=== PATIENT | male | born 1955 | race Caucasian/White ===

== ENCOUNTER 2024-02-02 06:27 | Outpatient (RCR) | payer OTHER, SELFPAY | END 2024-02-02 23:59 | disposition home or self-care (01) | LOC: RPT 06:27 | PROVIDERS: ATTENDING PHYSICIAN Physical Medicine & Rehabilitation; FAMILY PHYSICIAN Family Medicine | DX: M54.50 Low back pain, unspecified (principal); Z73.6 Limitation of activities due to disability; M62.81 Muscle weakness (generalized); M62.830 Muscle spasm of back | CPT/HCPCS: 97162; 97530 ==

== ENCOUNTER → 2024-02-08 14:11 | Outpatient (REF) | payer OTHER, SELFPAY | LOC: RAD 14:11 | PROVIDERS: ATTENDING PHYSICIAN Student in an Organized Health Care Education/Training Program; FAMILY PHYSICIAN Family Medicine | DX: L81.9 Disorder of pigmentation, unspecified (principal) | CPT/HCPCS: 73620; 93925 ==

== ENCOUNTER 2024-02-14 09:08 | Outpatient (RCR) | payer OTHER, SELFPAY | END 2024-02-14 23:59 | disposition home or self-care (01) | LOC: RPT 09:08 | PROVIDERS: ATTENDING PHYSICIAN Physical Medicine & Rehabilitation; FAMILY PHYSICIAN Family Medicine | DX: M54.50 Low back pain, unspecified (principal); Z73.6 Limitation of activities due to disability | CPT/HCPCS: 97110; 97530 ==

== ENCOUNTER → 2025-02-15 08:18 | Outpatient (REF) | payer OTHER, SELFPAY | LOC: RAD 08:18 | PROVIDERS: ATTENDING PHYSICIAN Family Medicine | DX: I70.208 Unspecified atherosclerosis of native arteries of extremities, other extremity (principal) | CPT/HCPCS: 93922; 93925 ==

== ENCOUNTER → 2025-03-19 11:06 | Outpatient (REF) | payer OTHER, SELFPAY | LOC: HWRAD 11:06 | PROVIDERS: ATTENDING PHYSICIAN Student in an Organized Health Care Education/Training Program | DX: M79.671 Pain in right foot (principal) | CPT/HCPCS: 73630 ==

== ENCOUNTER 2025-10-28 19:25 | Inpatient (IN) | payer OTHER, SELFPAY ==
[2025-10-28] VITALS (50 sets, daily range): BP systolic 71–152; BP diastolic 36–106; PULSE 71; BMI 35.7; BMI 35.3
[2025-10-28 15:30] LABS: Glucose - Point of Care 184 mg/dl (70-99)
[2025-10-28] MEDS: LEVOPHED 250 IV ×2 (15:35→19:50)
[2025-10-28] MEDS: SUBLIMAZE 50 MCG IV ×3 (15:40→19:25)
[2025-10-28] MEDS: SUBLIMAZE 100 IV (15:41)
[2025-10-28 15:42] LABS: Hematocrit 45.3 % (39.0-52.0); Hemoglobin 14.4 g/dL (13.0-18.0); Mean Corp Hgb Conc. 31.8 g/dL (33.0-37.0); Mean Corpuscular Volume 91.7 fL (80.0-94.0); Nucleated Red Blood Cells % 0 % (-); Platelet Count 225 10^3/uL (130-400); Red Cell Dist. Width 14.1 % (11.5-14.5)
[2025-10-28 15:59] LABS: APTT 23.9 Sec (23.4-35.0)
[2025-10-28 16:08] LABS: ALT (SGPT) 164 U/L (0-50); AST (SGOT) 183 U/L (17-59); Albumin 3.5 g/dl (3.5-5.0); Alkaline Phosphatase 74 U/L (38-126); Blood Urea Nitrogen 19 mg/dl (9-20); Calcium 8.2 mg/dl (8.4-10.2); Carbon Dioxide 15 mmol/L (22-30); Chloride 110 mmol/L (98-107); Estimated Creatinine Clearance 81 ml/min; Glucose 207 mg/dl (70-99); Potassium 4.0 mmol/L (3.5-5.1); Sodium 138 mmol/L (135-145); Total Protein 6.2 g/dl (6.3-8.2); eGFR > 60.00
[2025-10-28 16:23] LABS: Troponin I 0.045 ng/ml
[2025-10-28] MEDS: DIPRIVAN 100 IV ×3 (16:50→23:00)
--- NOTE | 2025-10-28 17:18 | ED.GENMED ---
History of Present Illness
General
Chief Complaint: CODE
Time Seen by Provider: 10/28/25 16:00
History of Present Illness
History of Present Illness:
70-year-old male with history of CHF presenting to the emergency department with cardiac arrest. Per son, patient was sitting in the car at their house, and suddenly reported shortness of breath and moaned. Son notes that he became blue and
unresponsive so he immediately started chest compressions. Medics were called to the house and noted they were there shortly after arrest. Patient was immediately shocked for V-fib. Medics note multiple shocks for V-fib and V. tach with
subsequent ROSC. Also received 4-5 rounds of epinephrine. Patient arrives intubated medics note some pink frothy contents to the tube. Per family, no recent infection. Patient does have sleep apnea noted chronic cough, however denies any
increase to the cough. Medics note that when they were intubating him, seemed to not be moving his left side as much of his right side. Patient was agitated, received fentanyl and ketamine. No additional history obtained at this time
Past History
Past History
ED Past Medical History: Arrthythmia, Cancer (Prostate) and Other (BPH)
ED Past Surgical History: Cardiac and Orthopedic
Social History
Tobacco: Non-smoker
Phy Exam
Physical Exam
Physical Exam:
General: Well-appearing, no clinical signs of dehydration, nontoxic and in no acute distress
HEENT: protecting airway, intubated with some pink sputum in the ET tube
Neck: appears supple
CV: Normal heart rate, regular rhythm
Resp: No accessory muscle use, no increased work of breathing, crackles or rhonchi bilaterally
Abd: No distention
Extremities: No deformities, no swelling
Neuro: alert, no focal neurologic deficit
: deferred
Rectal: deferred
Psych: Normal affect
Skin: Intact
Course
Orders/Labs/Results
Orders:
Orders
10/28/25 15:29
Propofol 1,000,000 Mcg/100 ml [Diprivan] 1,000,000 mcg in 100 ml .ROUTE .STK-MED
10/28/25 15:31
CR Chest Portable - 1 View Urgent
Comment:
Reason For Exam: post intubation
Reason Study Needs to be Portable: Patient Unstable
10/28/25 15:32
FentaNYL 1,000 MCG/100 ML [Sublimaze] 1,000 mcg in 100 ml .ROUTE .STK-MED
Fentanyl Citrate/Pf [Sublimaze] 100 mcg .ROUTE .STK-MED ONE
Fentanyl Citrate/Pf [Sublimaze] 50 mcg IV NOW STA
Fentanyl Citrate/Pf [Sublimaze] 50 mcg IV [id number] PRN
10/28/25 15:33
Ct Chest/Abd/Pel Angio W/Wo Iv Urgent
Reason For Exam: vfib arrest
Complete Blood Count/With Diff Urgent
Comprehensive Metabolic Panel Urgent
NT-proBNP Urgent
PTT Urgent
Troponin I Urgent
10/28/25 15:34
CT Head W/o Iv Contrast Urgent
Comment:
Reason For Exam: post arrest
10/28/25 15:45
FentaNYL 1,000 MCG/100 ML [Sublimaze] 1,000 mcg in 100 ml IV PER PROTOCOL
Indication:: Light Sedation
Begin Infusion:: Now
Goal:: pain score </= 1, CPOT 0-2, RASS 0 to -2
Maximum dose in mcg/hr:: 300
Continue currently infusing dose and titrate:: Yes
Titration Instructions:: Titrate every 30 minutes if patient exhibits signs of pain or discomfort
Titration Instructions:: (pain score >/= 2, CPOT>/= 3).
Titration Instructions:: Administer bolus dose and increase infusion by 25 mcg/hr.
Taper Instructions:: If pain score at goal for 4 consecutive hours (pain score </= 1, CPOT 0-2)
Taper Instructions:: decrease infusion by 50 mcg/hr every 2 hours.
Taper Instructions:: When dose </= 50 mcg/hr may turn infusion off and consider PRN
Taper Instructions:: intermittent bolus doses only.
Over-sedation Instructions:: If CPOT 0-2 (goal) and RASS -3 to -5 (below goal) decrease sedative by 50%
Over-sedation Instructions:: first. If pain score remains at goal and RASS remains below goal in 1 hour,
Over-sedation Instructions:: decrease opioid infusion by 50%.
Notify provider:: immediately if pt exhibits: chest wall rigidity, hemodynamic instability,
Notify provider:: agitation/pain despite maximum dosing, pain when RASS -3 to -5 (below goal)
Additional Instructions:: Patient MUST be mechanically ventilated.
10/28/25 16:00
NORepinephrine 4 MG/250 ML [Levophed] 4 mg in 250 ml IV PER PROTOCOL
Initial dose in mcg/min, then titrate:: 10
Titrate to keep:: MAP > 65 mmHg
Titrate by mcg/min:: 1-2 mcg/min
Frequency of titrations (minutes):: 5
Maximum dose in ICU in mcg/min:: 30
Maximum dose in IMU in mcg/min:: 8
Maximum dose in IVU in mcg/min:: 4
Begin to taper infusion when:: Remained at goal for 4hrs
Taper by mcg/min:: 1-2 mcg/min
Frequency of taper (minutes) if patient maintains goal:: 30
Taper to off?: Yes
If infusion off & no longer maintaining goal:: Contact Provider
10/28/25 16:30
Propofol 1,000,000 Mcg/100 ml [Diprivan] 1,000,000 mcg in 100 ml IV PER PROTOCOL
Indication:: Light Sedation
Begin Infusion:: Now
Goal:: RASS 0 to -2
Maximum dose in mcg/kg/min:: 50
Continue currently infusion dose and titrate:: Yes
Titration Instructions:: Titrate by 5-10 mcg/kg/min every 5 minutes until RASS 0 to -2 achieved.
Taper Instructions:: If RASS is at or below goal for 4 consecutive hours decrease infusion by
Taper Instructions:: 5-10 mcg/kg/min every 2 hours.
Over-sedation Instructions:: If CPOT 0-2 (at goal) AND RASS -3 to -5 (below goal) decrease sedative by
Over-sedation Instructions:: 50% first. If pain score remains at goal and RASS remains below goal in
Over-sedation Instructions:: 1 hour, decrease opioid infusion by 50%.
Notify provider:: immediately if patient exhibits signs/symptoms of propofol-related
Notify provider:: infusion syndrome.
Additional Instructions:: Patient MUST be mechanically ventilated and MUST receive analgesia
10/28/25 17:08
ASA Classification Routine
COVID-19 Antigen Urgent
Source: Nasal Swab
Troponin I Urgent
Blood Culture Q30M
GAUDENCIO Source: Blood/Venous
Specimen Description:
Influenza A+B Rapid Molecular Urgent
GAUDENCIO Source: Nasal Swab
Specimen Description:
Propofol [Diprivan] 20 mg IV NOW STA
10/28/25 17:10
Triglycerides Routine
Comment: baseline levels with propofol infusion
Blood Culture Q30M
GAUDENCIO Source: Blood/Venous
Specimen Description:
10/28/25 17:16
Piperacillin/Tazo 4.5 Gram [Zosyn] 4.5 gram in 100 ml IV NOW
10/28/25 17:28
Consult Physician [PHYSICIAN CONSULT] Routine
Consulting Provider: Patricio Ward
Was physician already notified: Yes
10/28/25 19:05
Admit/Transfer Patient As Directed
Co-Sign Provider:
Level of Care: Inpatient admission
Assign to:: ICU
Physician / Group: Leticia Alexander
Diagnosis: cardiac arrest, pneumonia
Reason for Hospitalization: cardiac arrest, pneumonia
Expected length of stay greater than two midnights?: Yes
ELOS- Estimated Length of Stay in days: 3
I certify the patient meets the requirements for IP care: Yes
PRN Pain Medication Management As Directed
May give lesser potent ordered pain med per pt: Yes
preference::
Protocol:: Medication orders for pain may be administered in a
manner that supports deferring to patient preference
when the pt is:
- Requesting an ordered lesser potent pain medication.
Least to most potent pain medications are defined
as: acetaminophen < NSAID < tramadol < opioids
(morphine, oxycodone, hydromorphone).
- Requesting a lesser dose of the same medication IF
ORDERED.
- Requesting a less intrusive route of administration
if both routes are prescribed by the provider (PO <
IV).
10/28/25 19:09
Code Status As Directed
Resuscitation Status: Full Code
10/28/25 19:12
Vancomycin [Vancocin] 2,000 mg 0.9% Sodium Chloride 500 ml [Nss] 500 ml IV NOW
10/28/25 19:13
CR Chest Portable - 1 View Stat
Comment:
Reason For Exam: post cardiac arrest
Reason Study Needs to be Portable: Unable to Transport
10/28/25 20:51
VANCOMYCIN Pharmacy to Dose [VANCOCIN Pharmacy to Dose] 1 each Pharmacy To Prepare [Call Pharmacy To Prepare] 0 ml IV PER PROTOCOL
10/28/25 20:51
Electrocardiogram (*1) Urgent
Reason for Study: Other
Other Reason for Exam: baseline ICU
Comment: upon arrival to ICU (if not done in ED or in last 24 hours)
CARDIOLOGY CONSULT Routine
Consulting Provider: Patricio Ward
Was physician already notified: Yes
Field Training Manager Consult Urgent
Consulting Provider: Ashlie Montenegro
Was physician already notified: Yes
Respiratory Culture/Gram Stain Urgent
GAUDENCIO Source: Sputum
Specimen Description:
Date Specimen was Collected: 10/29/25
Time Specimen was Collected: 08:20
Activity As Directed
Activity Level: As Tolerated
Bedside Glucose Monitoring-ONCE As Directed
Comment: upon arrival to ICU
Intake/ Output As Directed
Frequency: Per unit guidelines
Notify MD As Directed
Notify physician if: While in ICU level of care:
glucose greater than or equal to 180 mg/dL once, contact provider to initiate Critical
Care Glycemic Protocol Target Range 140-180 mg/dL.
Vital Signs As Directed
Frequency: Per unit guidelines
Weight As Directed
Frequency: Daily
Comment: height and weight upon arrival to ICU.
DX Deep Vein Thrombosis Video Routine
10/28/25 22:05
Complete Blood Count/With Diff Urgent
Comment: upon arrival to ICU (if not done in ED or in last 24 hours)
Comprehensive Metabolic Panel Urgent
Comment: upon arrival to ICU (if not done in ED or in last 24 hours)
Magnesium Urgent
Comment: upon arrival to ICU (if not done in ED or in last 24 hours)
Phosphorus Urgent
Comment: upon arrival to ICU (if not done in ED or in last 24 hours)
Protime/PTT Urgent
Comment: upon arrival to ICU (if not done in ED or in last 24 hours)
10/28/25 22:07
Legionella Urinary Antigen Routine
GAUDENCIO Source: Urine
Specimen Description:
Strep pneumoniae Antigen Routine
GAUDENCIO Source: Urine
Specimen Description:
10/29/25 00:00
Heparin 5,000 units SC Q8
Piperacillin/Tazo 4.5 Gram [Zosyn] 4.5 gram in 100 ml IV Q6H
10/29/25 04:07
Cardiovascular Evaluation IN AM
Complete Blood Count/No Diff IN AM
Comprehensive Metabolic Panel IN AM
10/29/25 Breakfast
NPO
Allow oral meds: No
Allow clear liquids: No
10/29/25 08:00
Polyethylene Glycol Powder [Miralax] 17 grams TUBE DAILY
10/31/25 06:00
Triglycerides Q3D
Comment: every 72 hours while patient is on propofol
11/03/25 06:00
Triglycerides Q3D
Comment: every 72 hours while patient is on propofol
11/06/25 06:00
Triglycerides Q3D
Comment: every 72 hours while patient is on propofol
Abnormal Lab Results
10/28/25 10/28/25 10/28/25
15:29 15:33 17:08
WBC 13.0 H 10^3/uL
(4.8-10.8)
MCHC 31.8 L g/dL
(33.0-37.0)
Abs Immat Gran (auto) 0.7 H 10^3/uL
(0-0.05)
Absolute Neuts (auto) 8.8 H 10^3/uL
(1.4-6.5)
Absolute Monos (auto) 0.7 H 10^3/uL
(0.1-0.6)
Immature Gran % 5.0 H %
(0-0.5)
Chloride 110 H mmol/L
(98-107)
Carbon Dioxide 15 L mmol/L
(22-30)
Glucose 207 H mg/dl
(70-99)
Calcium 8.2 L mg/dl
(8.4-10.2)
AST 183 H U/L
(17-59)
ALT 164 H U/L
(0-50)
Troponin I 0.045 H* ng/ml 0.256 H* D ng/ml
Total Protein 6.2 L g/dl
(6.3-8.2)
Triglycerides
POC Glucose 184 H mg/dl
(70-99)
10/28/25
17:10
WBC
MCHC
Abs Immat Gran (auto)
Absolute Neuts (auto)
Absolute Monos (auto)
Immature Gran %
Chloride
Carbon Dioxide
Glucose
Calcium
AST
ALT
Troponin I
Total Protein
Triglycerides 167 H mg/dl
(10-149)
POC Glucose
10/28/25 15:33
10/28/25 15:33
Vital Signs
Initial and Last Documented VS:
Initial Vital Signs
Pulse Resp Pulse Ox
77 24 86
10/28/25 15:27 10/28/25 15:27 10/28/25 15:27
Last Documented Vital Signs
Temp Pulse Resp BP Pulse Ox
100.0 F 81 15 99/66 94
10/30/25 12:16 10/30/25 08:20 10/30/25 08:20 10/30/25 06:00 10/30/25 08:24
MDM/Problems Addressed
MDM/Problems Addressed:
70-year-old male with history of CHF and sleep apnea presenting to the emergency department after cardiac arrest. Vital signs on arrival significant for hypotension
On arrival, medics had noted the patient received multiple shocks with concern for V-fib and V. tach. Patient also received epinephrine. Current ROSC. Patient already intubated with appropriate lung sounds bilaterally. Given labile blood
pressure, started on Levophed. For sedation, started on fentanyl drip. EKG obtained on arrival, nonischemic. At this time lower suspicion for cardiac arrest from obstructive coronary disease. Will discuss with cardiology given V-fib arrest.
Known history of CHF, with chest x-ray obtained on arrival, showing pulmonary edema. Possible component of flash pulmonary edema vs pneumonia. Given undifferentiated, plan for CT chest/abdomen/pelvis. Medics have reported the patient was not
moving his left side as well as his right when he became agitated. Stroke is a consideration, however seems less likely in the setting of patient complaining of shortness of breath and becoming cyanotic. Suspect more cardiopulmonary cause. Will
obtain CT brain imaging. Family updated on patient's status shortly after arrival.
17:30 - In discussion with cardiology, agree that EKG is not showing anything acute as far as ischemia. Recommend continued supportive care. CT of the brain without acute intracranial abnormality. CT of the chest abdomen pelvis shows pneumonia
versus aspiration. Patient does have a mild leukocytosis, so infection is a consideration. Will start broad-spectrum antibiotics. BNP is normal and troponin is minimally elevated. Otherwise no significant lab abnormalities. Patient not
appropriately state-mandated on fentanyl, so propofol added with adjustment of Levophed. Plan for admission for continued respiratory support, antibiotics, blood cultures, cardiac and ICU consultation
*Pulse Oximetry
SaO2: 97
Oxygen Mode of Delivery: Ventilator
Patient hypoxic: no
*EKG
Interpreted by ED Provider?: Yes
EKG Intrepretation Date: 10/28/25
EKG Intrepretation Time: 17:18
Interpretation: normal
Heart Rate: 77
Rate: normal
Rhythm: sinus
Leonore: normal axis
Interval: normal interval
QRS Pattern: normal QRS
Ischemia: no ischemia
*Critical Care Note
Total Time (30-74mins, 75-104mins- exclusive of procedures): 65
comment:
The high probability of a clinically significant, sudden or life threatening deterioration of the cardiopulmonary system(s), cardiac arrest, required my full and direct attention, intervention and personal management. The aggregate critical care
time was 65 minutes. This time is in addition to time spent performing reported procedures but includes the following:
[x] Data Review and interpretation
[x] Patient assessment and monitoring of vital signs
[x] Documentation
[x] Medication orders and management
ED Attending Note
-
Portions of this chart may have been created with voice recognition software.� Occasional wrong word or��sound alike� substitutions may have occurred due to the inherent limitations of voice recognition software.
Discharge Plan
Departure
Patient Disposition: Admit
Date of Disposition: 10/28/25
Time of Disposition: 17:10
Presentation/result/management discussed w/ accepting MD/DO: Hospitalist
Patient with high blood pressure during this ER visit?: No
Condition: Critical
Discharge Problem:
Cardiac arrest, Pneumonia
Interventions
Interventions:
*Neglect/Abuse Screening Last Done: 10/28/25 15:45
*ED COVID-19 Vaccine History Last Done: 10/28/25 15:45
*ED Influenza Vaccine History Last Done: 10/28/25 15:45
[facility] Risk Assessment Tool Last Done: 10/28/25 16:30
*Risk Screen - Suicide (C-SSRS) Last Done: 10/28/25 15:45
*Nursing Disposition Last Done: 10/28/25 21:10
ED- Cardiac Assessment Last Done: 10/28/25 16:26
ED- Pulmonary Assessment Last Done: 10/28/25 20:00
Discharge Date and Time
Discharge Date/Time: 10/28/25 21:11
--- NOTE | 2025-10-28 17:31 | HPS.HSE ---
Addendum entered and electronically signed by Leticia Alexander DO 10/28/25 19:43:
I have seen and examined the patient. I have discussed the patient at length with AMY Roberts, and agree with her history and physical, assessment and plan of care as per below.
The patient's son was able to initiate immediate CPR with chest compressions until EMS arrived. The pt woke up during this H & P, became agitated on vent, but was able to look around to room with intention, recognize his family, squeeze both hands
with intention, and wiggle both legs, prior to getting agitated by intubation, and sedation was increased for patient safety.
The patient is intubated and sedated currently, on Levo gtt, Fentanyl gtt, Propofol gtt, Fentanyl gtt.
ED provider spoke to [employer], and I discussed with Cardiology, no evidence for acute myocardial ischemia causing cardiac arrest, no evidence for acute heart failure at this time. He has evidence for b/l consolidation and possible aspiration
pneumonia on CT of the chest.
#Cardiac arrest status post multiple shocks, V-fib or V-tach arrest in the field, shocked multiple times by EMS, s/p multiple doses of epi, with ROSC, possibly due to hypoxic respiratory failure with VT arrest, due to bacterial pneumonia vs
aspiration pna,
-Admit to ICU
-Life Insurance Agent/Cardiology consultation appreciated
-Gentle IVF while NPO
-IV Vanco, IV Zosyn for suspected bacterial PNA
-cultures, blood, urine, sputum, S/IGGY pending
-echocardiogram pending
-cont levo for now w weaning protocol
-cont fentanyl/propofol w weaning protocol
-ventilatory supportive care while ETT
#Transaminitis, likely passive congestion s/p cardiac arrest vs end-organ damage 2/2 acute bacterial pneumonia w sepsis
-gentle IVF due to heart failure history, close monitoring of I/O, daily weights
-repeat CMP in am
-tbili WNL, not likely biliary obstruction process, noted to have gallstones on CT with normal bile ducts.
#pt w history of laryngeal spasms, concern for possible aspiration pna
-speech eval when appropriate
-IV Zosyn
#Incidental nodule in the right lobe of the thyroid gland - to address by primary team pending clinical course, for OP
Agree with additional assessment and plan of care as per below
Original Note:
Family Physician
-
Family Physician: Akash Robledo
Chief Complaint
-
prehospital code
History of Present Illness
Patient is a 70-year-old male with past medical history significant for paroxysmal atrial fibrillation, HFrEF, gout, obstructive sleep apnea, nonischemic cardiomyopathy and acquired thrombophilia who presented to [facility] ED for evaluation of
prehospital code. Patient family at bedside who assisted with HPI and chart review. Son reports patient was outside today and when he was leaving he started calling his name, he did not appear well and was unable to state what was wrong. Son stated
that patient stated he 'did not know,' when questioned what was wrong. He notes patient opened car door to find a place to sit down and quickly became ashy and blue. He immediately started chest compressions and patient spouse called 911. Upon EMS
arrival patient was found to be in shockable rhythm. Chart indicates that patient received multiple shocks for V-fiba and V. tach. he also received 4-5 rounds of epinephrine before obtains ROSC. Family reports that patient was slightly more short of
breath today. inidcated he recently in past week complained of feeling diaphroetic despite temperture being cold and ear ache. No known fever, chills, chest pain, nausea, vomiting or dairrhea.
Medical History
Past Medical History
Past Medical History: Reports Other
Additional Past Medical History:
paroxysmal atrial fibrillation
HFrEF
gout
obstructive sleep apnea
nonischemic cardiomyopathy
acquired thrombophilia
Hx prostate cancer
Hx leiomyosarcoma of arm s/p removal 2008
Past Surgical History: Reports Other
Additional Past Surgical History:
resection of leiomyosarcoma
right knee arthroscopy
angio Procedure 10/25/2020
ablation 03/2021
bilateral carpal tunnel release
Social History
Unable to obtain full social history at this time due to: Patient Intubation
Alcohol: Daily (2 beers daily )
Personal:
Living: With Family
Family History
Family History: Not pertinent
Allergies / Home Medications
Allergies reflects when Allergies were last updated in [facility].
Home Medications with original date entered in [facility]
Allergy/Medication List:
Medications on admission are unable to be verified or confirmed at this time.
Review of Systems
-
Unable to obtain full review of systems at this time due to: Patient Intubation
History Source: Family
Respiratory: Reports Trouble Breathing (increased shortness of breath )
Physical Exam
Vital Signs
Vital Signs
Pulse Resp BP Pulse Ox
70 23 92/76 97
10/28/25 16:00 10/28/25 16:00 10/28/25 16:00 10/28/25 17:24
Physical Exam
General: Well Developed, Well Nourished and Obese
HEENT: NormoCephalic, PERRLA, Nose Appears Normal and Ears Appear Normal
Respiratory: Rhonchi, Non Labored Respirations and Other (intubated )
Cardiac: S1/S2 and Regular Rhythm
GI: Soft, Non Tender, Non Distended and Normal Bowel Sounds
Musculoskeletal: No Clubbing and No Cyanosis
Skin: IV/Catheter Site
Neuro: Sedated
Laboratory Results
-
10/28/25 15:33
10/28/25 15:33
Laboratory Results
APTT 23.9 Sec (23.4-35.0) 10/28/25 15:33
Total Bilirubin 0.8 mg/dl (0.2-1.3) 10/28/25 15:33
AST 183 U/L (17-59) H 10/28/25 15:33
ALT 164 U/L (0-50) H 10/28/25 15:33
Alkaline Phosphatase 74 U/L (38-126) 10/28/25 15:33
Troponin I 0.045 ng/ml H* 10/28/25 15:33
Data Reviewed
-
Diagnostic Radiology: Report Reviewed by me (CXR: The endotracheal tube tip terminates in the midthoracic trachea. Low lung volumes. Bilateral pulmonary opacities may be secondary to pulmonary edema or pneumonia. No pleural effusion or
pneumothorax. Enlarged cardiac silhouette. Chronic degenerative changes of the spine.)
CT Scan: Report Reviewed by me (Chest/Abd/Pel: No CTA evidence for an aortic dissection, aneurysm, or intramural hematoma. No central pulmonary thromboembolus. Pneumonia/aspiration with airspace consolidations in the posterior aspects of both
lungs. Minimal lucency of the medial right lung/right lateral cardiac margin either re) and Other (Head: No acute intracranial abnormality.)
Lab Data: Labs Reviewed by me (WBC 13.0, Ca+ 8.2 (corrected 8.6), albumin 3.5, AST 183, ALT 164, trop 0.045, pBNP 44.2)
Impression/Plan
-
IMPRESSION/PLAN:
#cardiac arrest
#pneumonia
sudden v-fib/v-tach arrest at home, witnessed by son
WBC 13.0, Ca+ 8.2 (corrected 8.6), albumin 3.5, AST 183, ALT 164, trop 0.045, pBNP 44.2
Covid: negative
Influenza: negative
CXR: The endotracheal tube tip terminates in the midthoracic trachea.
Low lung volumes. Bilateral pulmonary opacities may be secondary to pulmonary edema or pneumonia. No pleural effusion or pneumothorax. Enlarged cardiac silhouette. Chronic degenerative
changes of the spine.
Chest/Abd/Pel Ct: No CTA evidence for an aortic dissection, aneurysm, or intramural hematoma.
No central pulmonary thromboembolus.
Pneumonia/aspiration with airspace consolidations in the posterior aspects of both lungs.
Minimal lucency of the medial right lung/right lateral cardiac margin either representing minimal pneumomediastinum or a tiny pneumothorax.
Cholelithiasis.
Nondisplaced fracture through the mid sternum. Inflammation in the anterior mediastinal fat adjacent to the sternal fracture. Multiple bilateral rib fractures. These findings are likely
secondary to CPR.
Head CT: No acute intracranial abnormality.
- Admit to ICU
- Consult Life Insurance Agent
- Consult Cardiology
- IV Vanco and Zosyn
- check ECHO
- supportive care
#paroxysmal atrial fibrillation
#HFrEF
#gout
#obstructive sleep apnea
#nonischemic cardiomyopathy
#acquired thrombophilia
*family unaware of current medication list, unable to reconcile at this time.
Code status: full code
DVT prophylaxis: heparin sq
[2025-10-28 17:36] LABS: Triglycerides 167 mg/dl (10-149)
[2025-10-28 17:42] LABS: COVID-19 Antigen Negative (Negative)
[2025-10-28] MEDS: ZOSYN 100 IV ×2 (17:42→23:55)
[2025-10-28 18:00] LABS: Troponin I 0.256 ng/ml
[2025-10-28] MEDS: VANCOCIN 540 MG IV (19:42)
--- NOTE | 2025-10-28 21:19 | PHA.VAN.IN ---
Addendum entered and electronically signed by Mary Chavez RPH 10/28/25 22:09:
Wrong weight was used, calculation adjusted, VD COEFFICIENT 0.6, estimated AUC 484, peak OF 28.4, estimated trough 13.5 Updated Empiric regimen 1250 mg iv q12
Original Note:
Assessment
- Assessment
Renal Function: Appears similar to baseline
Concomitant Antimicrobials: ZOSYN 4.5 G IV Q6H
AUC Dosing Plan
- Empiric Dosing
Initial / Loading Dose: 2000 mg 10/28/25 @19:42
Maintenance Regimen: 750 mg q12 hr
Estimated AUC (mcg*h/mL): 508
Estimated Peak (mcg*h/mL): 30.3
Estimated Trough (mcg/ml): 13.9
Estimated Half Life (H): 9.8
- Monitoring
No levels ordered at this time: consider ordering the next few days
Pharmacokinetics Vancomycin I
- -
Patient Age: 70
Patient Sex: Male
Vancomycin Day #: 1
Indication: Pulmonary/Respiratory
Requesting Provider: VALERIA HANNAH
Pertinent Antimicrobial Allergies:
NO KNOWN ANTIMICROBIAL ALLERGY
Height / Weight:
Height 6 ft 3 in
Actual Weight 128 kg
Pertinent Past Medical History: Obesity
- Vital Signs / Lab Results
Pulse Resp BP Pulse Ox
74 20 109/86 96
10/28/25 20:10 10/28/25 20:10 10/28/25 20:10 10/28/25 21:07
Lab Results - Hematology
10/28/25
15:33
WBC 13.0 H
Lab Results - Chemistry
10/28/25
15:33
BUN 19
Creatinine 1.2
Estimated Creat Clear 81
Albumin 3.5
Microbiology Results
10/28/25 17:08 Influenza Types A & B (LIZ) - Final
Nasal Swab Negative for Influenza A & B, NAAT
Negative results must be combined with clinical observations
and patient history.
Nucleic Acid Amplification test (NAAT)performed on the
[employer] platform.
[2025-10-28 21:25] LABS: Glucose - Point of Care 152 mg/dl (70-99)
--- NOTE | 2025-10-28 21:59 | W.PN.UPDATE ---
Update Note
Progress Note Update
�
Procedure Note: Arterial Line�
� Right Wrist Arrow 20 (01/09)�
Diagnosis:��cardiac arrest
IV Line Comments: Uneventful Procedure�
Markel completed pre-procedure: Yes�
A-Line Comments: Sterile technique as per standard protocol, Ultrasound guided insertion�
Functioning�A-line in situ: Yes�
A-line Insertion Start Time:��2134
A-line in at:��2144
--- NOTE | 2025-10-28 22:00 | PTCARENOTE ---
Pt arrived from ED approx 2100. Staff transferred pt from ED stretcher to unit bed without incidence. Pt placed on ICU hardwire equipment. Pt attempting to raise R arm towards ETT, b/l wrist restraints in place, education attempted. Unable to assess
pt's orientation due to intubation/sedation, pupils equal/reactive/2mm. #7.5 ETT secured to L lip at 26cm, lung sounds are decreased throughout w fine crackles in R base. Suctioned orally for clear/white sputum. Will obtain resp cx via ETT when
able. Telemetry rhythm reveals SR w 1st degree AVB and oc PVCs, HR 70's, no edema noted, palpable peripheral pulses present. Pt arrived to unit with Levophed infusing at 12 mcg/min. +BS, abdomen soft round obese. OG tube in place to low intermittent
suction w loya/brown output. NPO status maintained. Thermistor Diaz catheter in place draining cloudy yellow/straw colored urine w sediment. Small scab noted on R knee and L ring finger. L AC and L w int's reported as pre-hospital sites; D/C'd. L EJ
int flushed and patent, capped. R AC int flushed and patent. Pt arrived to unit with Propofol and Fentanyl drips infusing, see worklist flowsheet for full details. Complete CHG bath/Diaz care/oral hygiene provided upon arrival to ICU.
AMY Son spoke w pt's family. Pt's spouse assisted in completing admission questions.
LEGAL DIRECTOR placed R radial arterial line, correlates with noninvasive BP cuff within 10-20 mmHg.
Safe environment maintained. Will continue to monitor closely.
[2025-10-28 22:20] LABS: B.E. -4.9 mmol/L; HCO3 22.1 mmol/L (21-28); O2 Saturation % 99.0 % (94-98); PCO2 47 mmHg (35-48); PO2 115 mmHg (83-108); Potassium 4.6 mMOL/L (3.5-5.1); Sodium 136 mMOL/L (136-145)
[2025-10-28 22:23] LABS: Hematocrit 44.6 % (39.0-52.0); Hemoglobin 14.8 g/dL (13.0-18.0); Mean Corp Hgb Conc. 33.2 g/dL (33.0-37.0); Mean Corpuscular Volume 87.5 fL (80.0-94.0); Nucleated Red Blood Cells % 0 % (-); Platelet Count 225 10^3/uL (130-400); Red Cell Dist. Width 14.2 % (11.5-14.5)
[2025-10-28 22:31] LABS: INR 1.15; PT 14.9 Sec (11.4-14.6)
[2025-10-28 22:32] LABS: APTT 24.3 Sec (23.4-35.0)
[2025-10-28 22:36] LABS: ALT (SGPT) 196 U/L (0-50); AST (SGOT) 192 U/L (17-59); Albumin 3.6 g/dl (3.5-5.0); Alkaline Phosphatase 70 U/L (38-126); Blood Urea Nitrogen 24 mg/dl (9-20); Calcium 8.0 mg/dl (8.4-10.2); Carbon Dioxide 21 mmol/L (22-30); Chloride 109 mmol/L (98-107); Estimated Creatinine Clearance 74 ml/min; Glucose 157 mg/dl (70-99); Magnesium 2.0 mg/dl (1.6-2.3); Potassium 4.6 mmol/L (3.5-5.1); Sodium 136 mmol/L (135-145); Total Protein 6.4 g/dl (6.3-8.2); eGFR 58.37
[2025-10-28 23:00] LABS: Troponin I 1.170 ng/ml
[2025-10-28] MEDS: HEPARIN 5000 UNITS SC (23:48)
[2025-10-28] MEDS: CALCIUM GLUCONATE 130 MG IV (23:50)
[2025-10-29] VITALS (12 sets, daily range): BP systolic 102–132; BP diastolic 67–87; BMI 35.3
[2025-10-29] MEDS: LEVOPHED 250 IV ×5 (01:22→21:10)
[2025-10-29] MEDS: DIPRIVAN 100 IV ×7 (01:24→21:51)
--- NOTE | 2025-10-29 01:47 | PTCARENOTE ---
Pt's family (spouse and 2 children) remain at bedside. No change in pt assessment. Attempted to taper Levophed per parameters, unsuccessful. Repositioning pt Q2H for skin integrity. Will continue to monitor closely.
[2025-10-29 04:16] LABS: B.E. -5.1 mmol/L; HCO3 18.9 mmol/L (21-28); O2 Saturation % 99.0 % (94-98); PCO2 32 mmHg (35-48); PO2 113 mmHg (83-108)
[2025-10-29 04:20] LABS: Hematocrit 42.8 % (39.0-52.0); Hemoglobin 14.2 g/dL (13.0-18.0); Mean Corp Hgb Conc. 33.2 g/dL (33.0-37.0); Mean Corpuscular Volume 86.5 fL (80.0-94.0); Platelet Count 218 10^3/uL (130-400); Red Cell Dist. Width 14.2 % (11.5-14.5)
[2025-10-29 04:43] LABS: ALT (SGPT) 174 U/L (0-50); AST (SGOT) 130 U/L (17-59); Albumin 3.4 g/dl (3.5-5.0); Alkaline Phosphatase 75 U/L (38-126); Blood Urea Nitrogen 24 mg/dl (9-20); Calcium 9.0 mg/dl (8.4-10.2); Carbon Dioxide 19 mmol/L (22-30); Chloride 110 mmol/L (98-107); Estimated Creatinine Clearance 74 ml/min; Glucose 183 mg/dl (70-99); HDL Cholesterol 51 mg/dl; LDL Cholesterol, Calculated 55 mg/dl; Potassium 4.3 mmol/L (3.5-5.1); Sodium 136 mmol/L (135-145); Total Protein 6.0 g/dl (6.3-8.2); Very Low Density Lipoprotein 31 mg/dl (0-30); eGFR 58.37
[2025-10-29] MEDS: SUBLIMAZE 100 IV ×3 (04:49→21:52)
[2025-10-29 05:00] LABS: Troponin I 0.920 ng/ml
[2025-10-29] MEDS: FLUSH (NSS) 2 FLUSH IV (05:00)
[2025-10-29] MEDS: ZOSYN 100 IV (05:00)
[2025-10-29] MEDS: VANCOCIN 275 MG IV (05:26)
[2025-10-29] MEDS: SUBLIMAZE 50 MCG IV ×2 (05:33→08:16)
[2025-10-29] MEDS: NOVOLOG FLEXPEN-LOW RESISTANCE 1 UNITS SC ×2 (05:41→12:12)
--- NOTE | 2025-10-29 05:53 | PTCARENOTE ---
While sitting pt upright for AM CXR pt opened eyes and started pulling against wrist restraints. Informed pt of his situation and events leading up to his hospitalization. Pt able to follow simple commands (ie: able to squeeze this RN's hands b/l)
and nod head 'yes'/'no' seemingly appropriately--nodded head 'yes' to experiencing pain in lower back (chronic) and sternum (acute). Pt continued to pull against restraints and move arms over side rails. PRN Fentanyl bolus administered and infusion
increased, see flowsheet for details.
Pt's spouse and 1 son remain at bedside.
Will continue to monitor closely.
[2025-10-29 05:54] LABS: Glucose - Point of Care 156 mg/dl (70-99)
--- NOTE | 2025-10-29 07:45 | PTCARENOTE ---
Assumed care of patient. Pt rec'd intubated and sedated. Pt responds to verbal stimuli. Able to open eyes, nod head, move all extremities and follow simple commands. Bilateral wrist restraints on. S1 S2 reg and distant w/ SB on monitor.
Occasional NSR and PVC's noted. Palpable pulses. Trace generalized edema. Intubated w/ #7.5 ETT 26cm left lip. Current vent settings: 20/500/+5/60%...sats 96%. Lungs diminished throughout. Suctioned for scant loya/blood tinged secretions.
Resp culture to be sent once obtained. Abdomen obese...hypo BS. OG norma -> LIWS @ 85cm lisa. Temp sensing desai draining cloudy yellow urine w/ sediment...desai care completed. Skin WNL except scab on right knee and left ring finger. 18P RAC
w/ fentanyl, diprivan, and levophed gtts infusing...see interventions. Right radial flushed and zeroed. 22P LH capped. 18P LEJ noted. VS documented. Safe environment confirmed.
--- NOTE | 2025-10-29 07:48 | CON.CAR ---
Addendum entered and electronically signed by Clemente Hahn MD 10/29/25 10:46:
I reviewed and agree with the note by LYDIA and it accurately reflects our care.
I saw and evaluated the patient, and I provided the substantive portion of the medical decision making. My assessment and plan is below:
70-year-old man with dilated nonischemic cardiomyopathy (thought to be due to frequent PVCs s/p ablation in 2020), heart failure with improved ejection fraction (41% -> 60%), paroxysmal atrial fibrillation, and NORMAN/obesity who presents following an
isi-nt-twchwxfc cardiac arrest. He was in the car with his son when he became ashy and blue. Was unresponsive. His son started CPR and EMS was called. At the time of EMS arrival, he was in VF. He had 5 shocks and 5 rounds of epi. ROSC was
achieved. He is now intubated and sedated but opens eyes to voice and follows commands. I reviewed his cardiology records from Dr. Zakia Alcala ([facility], noninvasive cardiology) and Dr. Patricio Bowens ([facility], EP). Patient underwent 24-hour Holter
monitor in February 2025 which showed 9% PVCs and NSVT (up to 20 beats), AIVR, and wide-complex tachycardia which may have been A-fib with aberrancy. He saw Dr. Bowens in April who wanted him to repeat a cardiac MRI which he had not done yet.
Physical exam: Intubated, sedated, opens eyes to voice, follows commands, RRR, no murmurs, lungs clear anteriorly, no lower extremity edema
Labs notable for troponin 0.045 -> 0.256 -> 1.17 -> 0.92, creatinine 0.8 -> 1.5, AST/ALT 130/174
No acute findings on CTA chest abdomen pelvis or head CT.
ECG 10/28/2025: NSR, nonspecific T wave abnormality, QTc 466 ms
[place] echo 11/09/2024: LVIDD 5.9 cm, LVEF 56%, mildly dilated RV with normal function, aortic sclerosis, mild TR, trace MR, normal PASP
Cvo-tp-mocmtrgo arrest: Suspect arrhythmogenic given recent increasing NSVT as an outpatient. No other obvious culprit. Doubt myocardial infarction given low level troponins after multiple defibrillations and nonischemic ECG. He will undergo
echocardiogram and then left heart catheterization to rule out obstructive coronary artery disease. If there is no culprit lesion, we will get a repeat cardiac MRI and he will undergo ICD prior to discharge. Plan for [facility] later today.
Paroxysmal atrial fibrillation: Hold Eliquis for left heart catheterization as above.
Heart failure with improved ejection fraction: Resume GDMT as tolerated.
Original Note:
Consultation
Consultation Request
Date/Time Consultation Requested: 10/28/2025 20:50
Date/Time Consultation Performed: 10/29/2025 07:45
Requesting Provider: LYDIA Jacob
Performing Provider: LYDIA Strong for Dr. Hahn
Reason for Consultation: Cardiac arrest
Medical History
-
Chief Complaint: Cardiac arrest
History of Present Illness:
Carlos Olmstead is a 70-year-old male (known to Dr. Champagne & Dr. Zakia Alcala) with nonischemic cardiomyopathy, most recent echocardiogram in 2022 with DCM (LVEF 50%), PVCs (most recent burden 16%), NSVT, paroxysmal atrial fibrillation, NORMAN, and
hypercholesterolemia who presented to the emergency department with cardiac arrest. Per the patient's son, the patient became ashy and blue. He then became unresponsive. EMS was called and CPR was started. He was found to be in a shockable
rhythm. He received multiple shocks for ventricular fibrillation and ventricular tachycardia in addition to 4�5 rounds of intravenous epinephrine before achieving ROSC. He is currently intubated and sedated and is unable to contribute to this HPI.
Past Medical History
Past Medical History: Arrhythmias (PVCs, NSVT, paroxysmal atrial fibrillation), Cancer (Prostate), CHF (NICM -> DCM) and Other (NORMAN on CPAP)
Past Surgical History: Orthopedic
Social History
Tobacco: Other (Unknown, intubated and sedated)
Alcohol: Other (Unknown, intubated and sedated)
Drug: Other (Unknown, intubated and sedated)
Personal: Other (Unknown, intubated and sedated)
Living: Other (Unknown, intubated and sedated)
Employment: Other (Unknown, intubated and sedated)
Family History
Family History: Unable to Obtain
Allergies / Home Medications
Allergy/AdvReac Type Severity Reaction Status Date / Time
NKA - No Known Allergies Allergy Unknown Uncoded 10/02/22 10:40
�Medication �Instructions �Recorded �Confirmed �Type
cholecalciferol (vitamin D3) 50 2,000 unit PO DAILY 10/25/20 03/24/21 History
mcg (2,000 unit) tablet
ibuprofen 200 mg tablet 200 mg PO PRN PRN discomfort 10/25/20 10/29/25 History
loratadine 10 mg tablet 10 mg PO DAILY 10/25/20 10/29/25 History
magnesium 200 mg tablet 200 mg PO DAILY 10/25/20 03/24/21 History
spironolactone 25 mg tablet 12.5 mg PO DAILY 03/24/21 10/29/25 History
apixaban 5 mg tablet (Eliquis) 5 mg PO BID 10/28/25 10/29/25 History
empagliflozin 10 mg tablet 10 mg PO DAILY 10/28/25 10/29/25 History
(Jardiance)
fluticasone propionate 50 2 spray intranasal DAILY 10/28/25 10/29/25 History
mcg/actuation nasal
spray,suspension
metoprolol succinate 25 mg 25 mg PO BID 10/28/25 10/29/25 History
tablet,extended release 24 hr
rosuvastatin 5 mg tablet 5 mg PO DAILY 10/28/25 10/29/25 History
sacubitril 24 mg-valsartan 26 mg 1 tab PO BID 10/28/25 10/29/25 History
tablet (Entresto)
Review of Systems
-
Unable to obtain full review of systems at this time due to: Patient Intubation
Physical Exam
Vital Signs
Temp Pulse Resp BP Pulse Ox
99.5 F 54 22 113/75 98
10/29/25 07:28 10/29/25 07:00 10/29/25 01:00 10/29/25 06:00 10/29/25 07:26
Lab Results
10/29/25 04:07
10/29/25 04:07
Troponin I 0.920 ng/ml H* 10/29/25 04:07
Wfj-R-Lhpeyzkgooh Pept 44.2 pg/ml 10/28/25 15:33
Physical Exam
General: Well Developed, Well Nourished, No Apparent Distress and Comfortable
HEENT: Normocephalic, Anicteric and Moist Mucous Membranes
Respiratory: Clear and Other (Mechanical ventilation)
Cardiac: S1/S2 and Regular Rhythm; Negative Peripheral Edema
Breast: Deferred by me
GI: Soft, Non Tender, Non Distended and Normal Bowel Sounds
Rectal: Deferred by Provider
Genito-urinary: No Costovertebral Tender
Musculoskeletal: No Cyanosis and No Edema
Skin: Warm and Dry
Neuro: Sedated
Hematologic/Lymphatic: No Lymphadenopathy
Psych: Calm
Impression / Plan
-
I/P: 70M with nonischemic cardiomyopathy, most recent echocardiogram in 2022 with DCM (LVEF 50%), PVCs (most recent burden 16%), NSVT, paroxysmal atrial fibrillation, NORMAN, and hypercholesterolemia who presented to the emergency department with
cardiac arrest.
Primary Financial Services Specialist: Dr. Zakia Alcala, Dr. Champagne (last seen 2022)
Cardiac arrest
- Requiring defibrillation and epinephrine to achieve ROSC
- No PE on CT
- No acute findings on head CT
- Echocardiogram today
Ventricular tachycardia
Ventricular fibrillation
- Requiring shocks and epinephrine to achieve ROSC
- Resume beta-eddie when able
- Will require cardiac catheterization and likely ICD
Abnormal troponin, nonischemic myocardial injury in the setting of defibrillation and CPR
- Peak troponin 1.170
- EKG appears nonischemic
Dilated cardiomyopathy (LVEF 50%, 2022)
- He does not appear volume overloaded
- No sarcoid on outpatient PET, the plan was for outpatient MRI to assess for infiltrative cardiomyopathy by his primary carriage feeder, MRI uncompleted
- GDMT as tolerated:
-RASSi: Entresto on hold with hypotension
-SGLT2 inhibitor: Jardiance 10 mg daily, auto substituted for Farxiga during hospitalization
-Aldosterone agonist: Spironolactone 12.5 mg daily on hold with hypotension
-Beta eddie: Metoprolol succinate on hold, resume when able, may need to tartrate while intubated
-Isosorbide/Hydralazine:�Not currently indicated
-ICD: No indicated, will discuss with EP
- Trend daily weight, I/O
PVCs, prior ablation in 2020, most recent burden 16% despite being on maximally tolerated beta-eddie
Data Reviewed
-
EKG: Report Reviewed by me
Radiology: Report Reviewed by me
Medical Tests (Nuc Med, Echo etc): Report Reviewed by me
Labs: Labs Reviewed by me
Old Records: Reviewed
[2025-10-29] MEDS: HEPARIN 5000 UNITS SC (07:53)
[2025-10-29] MEDS: MIRALAX 17 GRAMS TUBE (07:53)
--- NOTE | 2025-10-29 08:06 | CON.INTV ---
Consultation
Consultation Request
Date/Time Consultation Requested: 10/28/2025
Date/Time Consultation Performed: 10/29/2025
Requesting Provider: Alejandra Treviño
Performing Provider: Dr. Watson
Reason for Consultation: Cardiac arrest
Medical History
-
Chief Complaint: Cardiac arrest
History of Present Illness:
Mr. Olmstead is a 70-year-old man with a past medical history of HFrEF last echo 2022 EF 45-50% with diastolic dysfunction, paroxysmal A-fib on Eliquis, ventricular arrhythmias followed at [place], gout, NORMAN, nonischemic cardiomyopathy, and acquired
thrombophilia who presented to the ER intubated after cardiac arrest. Patient was with son sitting in the car when he suddenly complained of shortness of breath and became unresponsive and blue. Son started chest compressions and medics soon
arrived, gave patient multiple shocks and 4-5 rounds of epi for V-fib and V. tach with subsequent ROSC. Medics noticed that during intubation there was pink bloody contents into and patient was not moving his left side as much as his right.
Patient was given fentanyl and ketamine intubated in the field and transferred to the emergency department after. Initial vitals in the ER showed a BP of 70/63, pulse 77, RR 24, satting at 86%. EKG on arrival was nonischemic. Patient was started
on Levophed and fentanyl drip and chest x-ray showed pulmonary edema versus pneumonia, CT chest abdomen pelvis was ordered as well as CT head which showed no acute intracranial abnormalities and findings suggestive of pneumonia versus aspiration.
BNP is normal and troponin was slightly elevated but in discussion with cardiology unlikely lead to be an ischemic event. Patient was started on antibiotics and propofol was added for sedation. Family does not report any recent history of illness,
but does reports sleep apnea and chronic cough. In the past week patient has been feeling diaphoretic and having an ear ache.
Past Medical History
Past Medical History: Arrhythmias, CAD (Nonischemic cardiomyopathy), Cancer (Prostate cancer, leiomyosarcoma s/p removal), CHF (HFrEF) and Other (Gout, NORMAN, acquired, failure)
Past Surgical History: Cardiac (Ablation 2020), Orthopedic (Right knee arthroscopy, carpal tunnel release) and Other (Leiomyoma resection)
Social History
Tobacco: Non-smoker
Alcohol: Daily (To)
Drug: None
Personal:
Living: With Family
Family History
Family History: Reviewed & Not Pertinent
Allergies / Home Medications
Allergies
Allergy/AdvReac Type Severity Reaction Status Date / Time
NKA - No Known Allergies Allergy Unknown Uncoded 10/02/22 10:40
Home Medications
�Medication �Instructions �Recorded �Confirmed �Last Taken �Type
cholecalciferol (vitamin D3) 50 2,000 unit PO DAILY 10/25/20 03/24/21 10/24/20 08:00 History
mcg (2,000 unit) tablet 2000
ibuprofen 200 mg tablet 200 mg PO PRN PRN discomfort 10/25/20 10/29/25 Unknown History
loratadine 10 mg tablet 10 mg PO DAILY 10/25/20 10/29/25 10/24/20 08:00 History
10 mg
magnesium 200 mg tablet 200 mg PO DAILY 10/25/20 03/24/21 10/24/20 08:00 History
200 mg
spironolactone 25 mg tablet 12.5 mg PO DAILY 03/24/21 10/29/25 Unknown History
apixaban 5 mg tablet (Eliquis) 5 mg PO BID 10/28/25 10/29/25 10/28/25 History
empagliflozin 10 mg tablet 10 mg PO DAILY 10/28/25 10/29/25 Unknown History
(Jardiance)
fluticasone propionate 50 2 spray intranasal DAILY 10/28/25 10/29/25 10/28/25 History
mcg/actuation nasal
spray,suspension
metoprolol succinate 25 mg 25 mg PO BID 10/28/25 10/29/25 Unknown History
tablet,extended release 24 hr
rosuvastatin 5 mg tablet 5 mg PO DAILY 10/28/25 10/29/25 Unknown History
sacubitril 24 mg-valsartan 26 mg 1 tab PO BID 10/28/25 10/29/25 Unknown History
tablet (Entresto)
Review of Systems
-
Unable to Obtain full review of systems at this time due to: Patient Intubation
History Source: Family
Constitutional: Chills
EENT: No Symptoms
Respiratory: Cough (Chronic)
Cardiac: No Symptoms
Abdomen/GI: No Symptoms
: No Symptoms
Musculoskeletal: No Symptoms
Skin: No Symptoms
Neuro: No Symptoms
Endocrine: No Symptoms
Vitals / Labs / Diagnostic Testing
Vital Signs
Temp Pulse Resp BP Pulse Ox
99.5 F 54 22 113/75 98
10/29/25 07:28 10/29/25 07:00 10/29/25 01:00 10/29/25 06:00 10/29/25 07:26
Lab Data
10/29/25 04:07
10/29/25 04:07
Laboratory Results
10/28/25 10/28/25 10/29/25
15:33 22:05 04:07
PT 14.9 H
INR 1.15
APTT 23.9 24.3
pH 7.28 L 7.38
pCO2 47 32 L
pO2 115 H 113 H
HCO3 22.1 18.9 L
O2 Delivery Level
Microbiology
10/28/25 17:08 Nasal Swab Influenza Types A & B (LIZ) - Final
Negative for Influenza A & B, NAAT
Negative results must be combined with clinical observations
and patient history.
Nucleic Acid Amplification test (NAAT)performed on the
[employer] platform.
Diagnostic Testing:
Physical Exam
-
HEENT: Normocephalic and Anicteric
Cardiovascular: S1/S2 and Regular Rhythm
Respiratory: Clear and Non-Labored Respirations
GI: Soft, Distended and Non Tender
Neurology: Other (Sedated)
Skin: Warm and Dry
Assessment
-
Mr. Olmstead is a 70-year-old man with a past medical history of PVCs s/p ablation 2020, HFrEF last echo 2022 EF 45-50% with diastolic dysfunction, paroxysmal A-fib on Eliquis, gout, NORMAN, nonischemic cardiomyopathy, and acquired thrombophilia who
presented to the ER intubated after cardiac arrest. Patient has a history of PVCs, has not followed up for cardiac MRI and possible PVC ablation, cardiac arrest likely due to PVCs
#Neurologic
Pain:
Analgesia:
Mentation: Patient intubated, at baseline AAO x 3
Activity:
CVA?
Concern for CVA due to patient having left-sided as well as right
CT head with no acute intracranial abnormalities
on light sedation patient able to follow commands and respond appropriately
Continue to monitor
#Cardiovascular
Maintain MAP> 65
Pressors: Levophed 13
QTc: 466
EKG sinus rhythm with PACs and bigeminy
Cardiology following
Arrhythmogenic cardiac arrest
Ventricular tachycardia
Ventricular fibrillation
Elevated troponin
Cardiogenic shock
Hx of PVCs with ablation 2020
Patient follows at [place] with Dr. Zakia Alcala, Dr. Patricio Bowens
Patient was supposed to follow-up with Dr. Bowens for cardiac MRI, possible repeat ablation for PVCs
Elevated troponin likely due to CPR/defibrillation, EKG is nonischemic
Low BPs requiring pressors
- Plan for [facility] today
- Possible cardiac MRI
- ICD placement prior to discharge
HFrEF
Last echo 2022 at EF 45-50%
Last echo (11/2024 EF 56%
On spironolactone, Entresto, Jardiance, metoprolol
- Hold GDMT due to hypotension
- Resume as tolerated
- Repeat echo
Paroxysmal A-fib
Treated with Eliquis, now on hold
Diagnosed 2 months ago, follows with Dr. Zakia Alcala
-Heparin drip
#Respiratory
O2 requirements: Vent CMV 20/500/5/60%
Sedation: Propofol 30, fentanyl 125, hydromorphone 1 mg every 30 as needed
Home O2: None
Blood gas: VBG 10/29 7.38/32/113/18.9
Aspiration pneumonia
s/p CPR and infield intubation
Elevated white count
COVID flu negative
Bilateral bibasilar consolidation on chest CT, chest x-ray
Concerning for sepsis/septic shock
Continue respiratory support with ventilator, plan for extubation after cath/procedures
-Sputum cultures pending
-Unasyn
-Continue supportive care
#Gastrointestinal
Diet: N.p.o.
Stooling regimen:
Tubes: None
Antiemetics:
GI PPx: Protonix 40 mg daily
Transaminitis
Likely due to hypoperfusion
- Trend LFTs
- Continue to monitor
#Renal
Diaz: Yes
Urine output: 100 mL/h
IVF: None
Electrolytes: K>4 Mg>2
Na 136
K 4.3
Mag 2.0
Acute kidney injury
Baseline 1.0 per chart review 2022
1.3 may be no baseline
S/p fluid resuscitation in the ED
-Continue to monitor
#Infectious
WBC 13->10.5
ABX: Unasyn
Microbiology: COVID-negative, flu negative
Antipyretics:
Aspiration pneumonia
s/p CPR and infield intubation
Elevated white count
COVID flu negative
Bilateral bibasilar consolidation on chest CT, chest x-ray
Concerning for sepsis/septic shock
-Sputum cultures pending
-Blood cultures pending
-Unasyn
-Continue supportive care
#Hematologic
DVT PPx: Heparin drip
Hemoglobin: 14.2
PT
INR
PTT pending
#Endocrine
Maintain euglycemia with goal BG 140�180
Low insulin sliding scale
#
Urine Legionella negative
Urine strep pneumo negative
#Surgical
#Access
Central:
None
Peripheral:
Left hand 22-gauge
Right cephalic 18
Right radial artery
CODE STATUS: Full code
--- NOTE | 2025-10-29 09:45 | PTCARENOTE ---
Bedside rounds completed. Family fully updated and all questions answered. For echo today.
[2025-10-29] MEDS: DILAUDID 1 MG IV ×2 (10:58→19:07)
[2025-10-29] MEDS: PROTONIX IV 40 MG IV (10:59)
[2025-10-29] MEDS: HEPARIN 4000 UNITS IV (11:04)
[2025-10-29] MEDS: HEPARIN 25000 UNITS/250 ML IV ×2 (11:04→21:00)
[2025-10-29 11:07] LABS: Glycohemoglobin (HgbA1c) 6.3 % (4.0-5.9)
[2025-10-29 11:16] LABS: Hematocrit 42.0 % (39.0-52.0); Hemoglobin 14.1 g/dL (13.0-18.0); Mean Corp Hgb Conc. 33.6 g/dL (33.0-37.0); Mean Corpuscular Volume 86.6 fL (80.0-94.0); Platelet Count 210 10^3/uL (130-400); Red Cell Dist. Width 14.2 % (11.5-14.5)
[2025-10-29 11:27] LABS: APTT 26.7 Sec (23.4-35.0)
[2025-10-29 12:00] LABS: Glucose - Point of Care 156 mg/dl (70-99)
--- NOTE | 2025-10-29 12:00 | PTCARENOTE ---
No major changes in physical assessment since am. Remains intubated and sedated. Heparin gtt infusing. For tentative cath today. VS documented. Safe environment confirmed.
[2025-10-29] MEDS: UNASYN IV ×2 (12:15→17:26)
--- NOTE | 2025-10-29 12:52 | CARDSERVLU ---
Echocardiogram with [facility] completed after protocol screening completed. Allergies verified.
Patent IV site: _L hand__
IV site flushed with 0.9% NaCl pre and post administration.
Diluted bolus method utilized to enhance visualization of ventricular metz.
Total volume given: _5___ mL
Patient tolerated all procedures well without complications.
[2025-10-29 12:55] LABS: Blood Urea Nitrogen 22 mg/dl (9-20); Calcium 8.5 mg/dl (8.4-10.2); Carbon Dioxide 18 mmol/L (22-30); Chloride 109 mmol/L (98-107); Estimated Creatinine Clearance 69 ml/min; Glucose 159 mg/dl (70-99); Potassium 3.8 mmol/L (3.5-5.1); Sodium 135 mmol/L (135-145); eGFR 53.40
[2025-10-29] MEDS: LOW STRENGTH ASPIRIN 324 MG TUBE (13:10)
--- NOTE | 2025-10-29 13:30 | PTCARENOTE ---
Pt taken to laboratory [facility].
--- NOTE | 2025-10-29 14:03 | CM ---
patiient unavailable current-cardiac cath
CM met with patient & son's
IA completed
Dx: cardiac Arrest, pneumonia
currently intubated on mechanical ventilation
Lives with his spouse in a 2 story home, 2 karen, 13 steps to bed/bathroom
PLOF: reports independent
Independent with ADL's
DME: CPAP ([employer])
Denies VN/Rehab
PCP: Dr. Akash Robledo
Pharmacy: [facility]ad[facility] ([facility])
PLAN: TBD, follow hospital progression, CM to continue to follow for discharge planning/needs
--- NOTE | 2025-10-29 14:31 | W.PN.HOSP.TC ---
Today's Communication/Plan
-
Assessment / Plan
Assessment / Plan
Out of hospital VT/VFib arrest (I suspect that this occurred first and then he aspirated rather then the other way which was documented in the hnp)
Rosc achieved now on mechanically vented and Endotrac intubated
Not a candidate for TTM as his mental status was intact moving his extremities fighting back
Check 2d echo
Monitor on tele
Needs LHC
No evidence of additional VT/Fib to suspect need for IV amio per Cards
Likely needs AICD for secondary prevention at this point, appreciate cards input
Acute respiratory failure with hypoxia
continue prop. unable to intiate precedex due to bradycardia
daily SAT/SBT
gi ppx
vent chnages per ICU
daily CxR while intubated
maintain net neg balance
Shoch cardiogentic/septic
maintain map >65
wean pressor as tolerated
start unasyn
transaminitis
monitor for now
hold statin
if getting worse can check ruqus/hep panel
likely related to shock though would have suspect higher
Pneumomediatinum vs ptx
ct minimal findings
daily cxr
HFrEF, nyha class 3-4, in shock
on levophed
hold diuretics
hold sglt2i
hold arni/arb
hold mra
paroxysmal afib
hold oral ac
started iv hep gtt
metabolic acidosis
will follow for now
would hold off on starting alkali therapy
likely related to shock
Anticipated Discharge: > 48 hours
Subjective/Interval History
-
Date of Service: October 29, 2025
seen and examiend. no new complaints. no acute overnight events
Objective Data
-
Labs:
Laboratory Results
10/29/25 10/29/2525
04:07 10:33 10:52
WBC 10.5 Cancelled
Hgb 14.2 Cancelled
Hct 42.8 Cancelled
Plt Count 218 Cancelled
APTT 26.7
HCO3 18.9 L
Sodium 136
Potassium 4.3
Chloride 110 H
Carbon Dioxide 19 L
BUN 24 H
Creatinine 1.3
Glucose 183 H
Calcium 9.0
Total Bilirubin 1.5 H
AST 130 H
ALT 174 H
Alkaline Phosphatase 75
10/29/25 10/29/25
10:53 17:00
WBC 11.6 H
Hgb 14.1
Hct 42.0
Plt Count 210
APTT Pending
HCO3
Sodium 135
Potassium 3.8
Chloride 109 H
Carbon Dioxide 18 L
BUN 22 H
Creatinine 1.4 H
Glucose 159 H
Calcium 8.5
Total Bilirubin
AST
ALT
Alkaline Phosphatase
Vital Signs:
Vital Signs
Temp Pulse Resp BP Pulse Ox
99.9 F 60 22 108/69 97
10/29/25 11:13 10/29/25 13:00 10/29/25 01:00 10/29/25 12:00 10/29/25 13:00
I&O
10/28/25 10/29/25 10/30/25
06:59 06:59 06:59
Intake Total 2005.6 / 2238.6 810.0 / 810.0
Output Total 1360 / 1510 640 / 640
Balance 646.6 / 728.6 170.0 / 170.0
Physical Exam
-
General: Intubated and Obese
HEENT: Atraumatic
Respiratory: Decreased Breath Sounds
Cardiac: Regular Rhythm and S1/S2
GI: Soft, Nontender, Nondistended and Normal Bowel Sounds
Musculoskeletal: No Clubbing and No Cyanosis
Psych: Other (sedated)
--- NOTE | 2025-10-29 15:05 | ITS.CL.CATH ---
[facility] - Catheterization
Cardiac Catheterization
Procedure Report:
CARDIAC CATHETERIZATION REPORT
Date of Procedure: 10/29/2025
Referring: Clemente Hahn M.D.
INDICATION: Cardiac arrest, rule out occlusive coronary artery disease.
PROCEDURE:
1. Left heart catheterization.
2. Coronary angiography.
A total of 0 minutes of procedural/moderate sedation was utilized. The patient was in deep sedation with a secured airway.
ACCESS:
1. 6 Bengali right common femoral artery using a modified Seldinger technique with a micropuncture under ultrasound guidance.
CATHETERS:
1. 5 Bengali JR4.
2. 5 Bengali JL 4.
HEMODYNAMIC DATA
Weight (kg): 127.9
AO (s/d/x, mmHg): 120/87/99
LV (s/x mmHg): 126/25
AV gradient (x, mmHg): 5.10
LEFT VENTRICULOGRAPHY: Not performed.
CORONARY ANGIOGRAPHY
Dominance: Right.
Left Main: Normal size, bifurcating vessel. There is no coronary artery disease.
LAD: Normal size vessel giving rise to 2 diagonals. There is no coronary artery disease.
Ramus: Congenitally absent.
Circumflex: Large size, nondominant vessel giving rise to 2 small obtuse marginals before terminating as a left posterolateral branch that supplies the entire inferolateral wall. There is no coronary artery disease.
RCA: Large size, dominant vessel with a medium sized posterolateral arcade. There is no coronary artery disease.
INTERVENTION(S)
None.
Closure Device: 6 Bengali Angio-Seal.
Radiation (mGy): 618.39
DAP (cm2.Gy): 48.3079
Fluoroscopy time (minutes): 2.2
CONCLUSIONS
1. Right dominant circulation with no occlusive coronary artery disease.
2. Severely elevated filling pressures (LVEDP = 25 mmHg at 127.9 kg) on a PEEP of 5 cmH2O.
3. No ischemic nidus for cardiac arrest.
RECOMMENDATIONS:
1. Expectant management after cardiac catheterization via right common femoral approach.
2. Limited weight bearing for one week.
3. Supportive care as hemodynamics demand.
4. Restart heparin 6 hours after femoral artery hemostasis.
5. Electrophysiology consultation.
6. Cardiac MRI.
7. Likely implantation of ICD given lack of reversible cause of arrest.
Copy to: Clemente Hahn M.D., Jae Champagne M.D., Akash Robledo M.D.
Juanjo Faye DO, FACC, FACP
--- NOTE | 2025-10-29 15:15 | PTCARENOTE ---
Rec'd pt from geophysical laboratory chief. Right groin dressing dry and intact. Pt flat in bed at present. Rec'd diprivan gtt @ 50mcg and fentanyl gtt @ 175mcg....rates increased during cath due to agitation. Will wean due to protocols. Safe environment
confirmed.
[2025-10-29] MEDS: NSS 1000 IV (15:20)
--- NOTE | 2025-10-29 16:00 | PTCARENOTE ---
No major changes in physical assessment. Remains intubated and sedated. Slowly weaning gtts per protocol. Safe environment confirmed. NSS infusing per post cath order.
[2025-10-29] MEDS: NOVOLOG FLEXPEN-LOW RESISTANCE SC (17:28)
[2025-10-29 17:39] LABS: Glucose - Point of Care 126 mg/dl (70-99)
--- NOTE | 2025-10-29 20:00 | PTCARENOTE ---
Resumed care of pt this evening. Received pt intubated and sedated. Pt has levo, fentanyl, and propofol gtts infusing via right peripheral IV site. Pt's eyes are equal and responsive to light. Pt able to move all [address] and
patient is tolerating vent settings satting at 95%bolus
[2025-10-30] VITALS (14 sets, daily range): BP systolic 94–151; BP diastolic 60–95; BMI 35.5
[2025-10-30] MEDS: UNASYN IV ×4 (00:17→17:14)
[2025-10-30] MEDS: NOVOLOG FLEXPEN-LOW RESISTANCE SC ×3 (00:37→12:12)
[2025-10-30 00:47] LABS: Glucose - Point of Care 117 mg/dl (70-99)
[2025-10-30] MEDS: DIPRIVAN 100 IV ×3 (00:57→06:08)
[2025-10-30] MEDS: DILAUDID 1 MG IV ×2 (01:44→08:47)
[2025-10-30 03:47] LABS: Hematocrit 37.7 % (39.0-52.0); Hemoglobin 12.6 g/dL (13.0-18.0); Mean Corp Hgb Conc. 33.4 g/dL (33.0-37.0); Mean Corpuscular Volume 87.7 fL (80.0-94.0); Platelet Count 188 10^3/uL (130-400); Red Cell Dist. Width 14.4 % (11.5-14.5)
[2025-10-30 03:59] LABS: APTT 42.0 Sec (23.4-35.0)
[2025-10-30] MEDS: LEVOPHED 250 IV (04:00)
--- NOTE | 2025-10-30 04:00 | PTCARENOTE ---
Heparin gtt titrated up to 1200 units/hr per order.
[2025-10-30 04:12] LABS: Blood Urea Nitrogen 17 mg/dl (9-20); Calcium 8.3 mg/dl (8.4-10.2); Carbon Dioxide 17 mmol/L (22-30); Chloride 109 mmol/L (98-107); Estimated Creatinine Clearance 80 ml/min; Glucose 141 mg/dl (70-99); Magnesium 1.8 mg/dl (1.6-2.3); Potassium 3.9 mmol/L (3.5-5.1); Sodium 134 mmol/L (135-145); eGFR > 60.00
[2025-10-30 05:48] LABS: Glucose - Point of Care 134 mg/dl (70-99)
--- NOTE | 2025-10-30 06:38 | PTCARENOTE ---
Addendum entered by Ulysses Stewart RN 10/30/25 06:39:
Heparin infusion turned back on at 2100 10/29/25 per order
Original Note:
Heparin gtt turned back on per order.
[2025-10-30] MEDS: PROTONIX IV 40 MG IV (07:33)
[2025-10-30] MEDS: FARXIGA 10 MG PO (07:33)
[2025-10-30] MEDS: MIRALAX 17 GRAMS TUBE (07:33)
--- NOTE | 2025-10-30 08:00 | PTCARENOTE ---
Assumed care of patient. Pt rec'd intubated and sedated. Pt responds to verbal stimuli. Able to open eyes, nod head, move all extremities and follow simple commands. Bilateral wrist restraints on. S1 S2 reg and distant w/ SB/NSR on monitor.
Occasional PVC's/couplets/triplets noted. Palpable pulses confirmed w/ doppler. Trace generalized edema. Intubated w/ #7.5 ETT 26cm left lip. Current vent settings: 20/500/+5/40%...sats 96%. Lungs diminished throughout. Suctioned for scant
loya/blood tinged secretions. Abdomen obese...hypo BS. OG [place] -> LIWS @ 85cm lisa. Temp sensing desai draining cloudy yellow/driss urine w/ sediment...desai care completed. Skin WNL except scab on right knee and left ring finger. 18P RAC w/
fentanyl, diprivan, and levophed gtts infusing...see interventions. Right radial flushed and zeroed. 22P LH capped. 18P LEJ noted. VS documented. Safe environment confirmed.
--- NOTE | 2025-10-30 08:30 | PTCARENOTE ---
Weaning levo/fent/prop per protocol. Pt placed on SBT. Pt increasingly alert but mildly agitated. Emotional support provided.
--- NOTE | 2025-10-30 08:32 | W.PN.CD ---
Today's Communication / Plan
-
Hopeful extubation
Cardiac MRI today vs tomorrow once extubated
Resume GDMT as tolerated
ICD prior to discharge
Impression / Plan
-
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
following an pry-wj-icxwzohk cardiac arrest.
Primary Preparation Room Worker: Dr. Zakia Alcala, Dr. Bowens ([facility], EP)
Cardiac arrest
- He remains intubated and sedated
- Initial rhythm was VF requiring defibrillation and epinephrine to achieve ROSC. Suspect arrhythmogenic given increasing NSVT as outpatient. [facility] with no obstructive CAD. CTA C/A/P with no acute findings.
- Plan for cardiac MRI once extubated and able to reliably follow commands/breath holds
- ICD prior to discharge
- Start BB once hemodynamically stable off pressors
Abnormal troponin, nonischemic myocardial injury in the setting of defibrillation and CPR
- Peak troponin 1.170
- EKG appears nonischemic
Dilated cardiomyopathy (LVEF 50%)
- He does not appear volume overloaded
- No sarcoid on outpatient PET, the plan was to repeat outpatient MRI to assess for infiltrative cardiomyopathy by his primary form raiser, given increasing NSVT
- GDMT as tolerated:
-RASSi: Entresto on hold with hypotension
-SGLT2 inhibitor: Jardiance 10 mg daily, auto substituted for Farxiga during hospitalization
-Aldosterone agonist: Spironolactone 12.5 mg daily on hold with hypotension
-Beta eddie: Metoprolol succinate on hold, resume when able
-Isosorbide/Hydralazine:�Not currently indicated
-ICD: Prior to discharge
- Trend daily weight, I/O
PVCs, prior ablation in 2020, most recent burden 16% despite being on maximally tolerated beta-eddie
Subjective: Opens eyes to voice. Follows simple commands.
Telemetry: Occasional AIVR
Physical Exam
Vital Signs/Labs
Vital Signs
Temp Pulse Resp BP Pulse Ox
99.4 F 81 15 99/66 94
10/30/25 08:00 10/30/25 08:20 10/30/25 08:20 10/30/25 06:00 10/30/25 08:24
10/29/25 10/30/25 10/31/25
06:59 06:59 06:59
Actual Weight 282 lb 6.594 oz 284 lb 6.341 oz
10/30/25 03:21
10/30/25 03:21
PT 14.9 Sec (11.4-14.6) H 10/28/25 22:05
INR 1.15 10/28/25 22:05
APTT 42.0 Sec (23.4-35.0) H 10/30/25 03:21
Magnesium 1.8 mg/dl (1.6-2.3) 10/30/25 03:21
Triglycerides 155 mg/dl (10-149) H 10/29/25 04:07
LDL Cholesterol, Calc 55 mg/dl 10/29/25 04:07
VLDL Cholesterol, Calc 31 mg/dl (0-30) H 10/29/25 04:07
HDL Cholesterol 51 mg/dl 10/29/25 04:07
10/28/25
15:33
Tmf-B-Hbbfdhxhghx Pept 44.2
LAB Results
10/28/25 10/28/25 10/28/25
15:33 17:08 22:24
Troponin I 0.045 H* 0.256 H* D 1.170 H* D
10/29/25
04:07
Troponin I 0.920 H*
Physical Exam
Constitutional: No acute distress, Comfortable and Other (Intubated)
Cardiovascular: Rhythm & rate is regular, Pedal edema is absent, S1S2 is normal and Murmur/rub/gallop absent
Respiratory: Other (Breathing comfortably on the vent, crackles at bases anteriorly)
Neuro/Psych: Other (Opens eyes to voice, follows simple commands)
Data Reviewed
-
Date of Service: October 30, 2025
Medical Decision Making: External Notes, Independent Historian Assessment, Test Interpretation and Review of Case with other Provider
EKG: Tracing Personally Visualized and interpreted
Echo: Report Reviewed by me
Labs: Labs Reviewed by me
--- NOTE | 2025-10-30 08:56 | W.PN.INTV ---
Today's Communication / Plan
Recommendations
SBT
Weaning sedation for extubation
Wean off pressors
Continue ABX
Assessment
-
Mr. Olmstead is a 70-year-old man with a past medical history of PVCs s/p ablation 2020, HFrEF last echo 2022 EF 45-50% with diastolic dysfunction, paroxysmal A-fib on Eliquis, gout, NORMAN, nonischemic cardiomyopathy, and acquired thrombophilia who
presented to the ER intubated after cardiac arrest. Patient has a history of PVCs, has not followed up for cardiac MRI and possible PVC ablation, cardiac arrest likely due to PVCs
#Neurologic
Pain: Throat pain
Analgesia: Hydromorphone 0.25 as needed
Mentation: Patient intubated, at baseline AAO x 3
Activity:
CVA?
Concern for CVA due to patient having left-sided as well as right
CT head with no acute intracranial abnormalities
on light sedation patient able to follow commands and respond appropriately
Continue to monitor
#Cardiovascular
Maintain MAP> 65
Pressors: Levophed 6, weaning down
QTc: 466
EKG 10/29 sinus rhythm with PACs and bigeminy
Cardiology following
Arrhythmogenic cardiac arrest
Ventricular tachycardia
Ventricular fibrillation
Elevated troponin
Cardiogenic shock
Hx of PVCs with ablation 2020
Patient follows at [place] with Dr. Zakia Alcala, Dr. Patricio Bowens
Patient was supposed to follow-up with Dr. Bowens for cardiac MRI, possible repeat ablation for PVCs
Elevated troponin likely due to CPR/defibrillation, EKG is nonischemic
Low BPs required pressors, off pressors 10/30
LHC without signs of cardiac ischemic injury
Echocardiogram 10/29 LVEF 50-55%, right ventricle appears dilated with reduced function
- Plan for cardiac MRI
- Possible ICD placement prior to discharge
HFrEF
Last echo 2022 at EF 45-50%
Last echo 11/2024 EF 56%
Echocardiogram 10/29/25 LVEF 50-55%, right ventricle appears dilated with reduced function
On spironolactone, Entresto, Jardiance, metoprolol
- Hold GDMT due to hypotension
- Resume as tolerated
- Resume SGLT2i
Paroxysmal A-fib
Treated with Eliquis, now on hold
Diagnosed 2 months ago, follows with Dr. Zakia Alcala
- Continue heparin drip
#Respiratory
O2 requirements: Vent SBT
Sedation: DC propofol DC fentanyl, hydromorphone 1 mg as needed
Home O2: None
Blood gas: 10/30 7.37/37/75/21
Acute hypoxemic respiratory failure due to cardiac arrest with aspiration pneumonia
s/p CPR and infield intubation
Elevated white count
COVID flu negative
Bilateral bibasilar consolidation on chest CT, chest x-ray
Concerning for sepsis/septic shock
-SBT, plan for extubation
-Sputum cultures positive for gram-negative bacilli
- Continue Unasyn
-Continue supportive care
#Gastrointestinal
Diet: N.p.o.
Stooling regimen:
Tubes: None
Antiemetics:
GI PPx: DC Protonix 40 mg daily
Transaminitis
Likely due to hypoperfusion
- Trend LFTs
- Continue to monitor
#Renal
Diaz: Yes
Urine output: 80 mL/h
IVF: None
Electrolytes: K>4 Mg>2
Na 134
K 3.9
Mag 2.0
Acute kidney injury
Baseline 1.0 per chart review 2022
1.3 may be new baseline
S/p fluid resuscitation in the ED
Downtrending Cr 1.2
-Continue to monitor
#Infectious
WBC 13->10.5-> 10.7
ABX: Unasyn, day 3
Microbiology: COVID-negative, flu negative
Antipyretics:
Spiked fevers 100.4, resolved without intervention
Aspiration pneumonia
s/p CPR and infield intubation
Elevated white count
COVID flu negative
Bilateral bibasilar consolidation on chest CT, chest x-ray
Concerning for sepsis/septic shock
-Sputum cultures growing gram-negative bacilli
-Blood cultures pending, no growth to date
-Unasyn, check Pro-Kike at day 5
-Continue supportive care
#Hematologic
DVT PPx: Heparin drip
Hemoglobin: 12.6
PT
INR
PTT 51.6
#Endocrine
Maintain euglycemia with goal BG 140�180
Low insulin sliding scale
#
Urine Legionella negative
Urine strep pneumo negative
#Surgical
#Access
Central:
None
Peripheral:
Left hand 22-gauge
Right cephalic 18
Right radial artery
CODE STATUS: Full code
Subjective Dataa
Subjective Data
Date of Service:
Patient seen at bedside coming off of sedation. Patient was able to follow commands and on review of systems reports some throat pain, no chest pain no shortness of breath, no abdominal pain. Date of Service: October 30, 2025
Review of Systems
General: Fever and Unobtainable - Sedation
Genitourinary: Diaz
Objective Data
Data Reviewed
Vital Signs / I&O / Oxygen:
Vital Signs
Temp Pulse Resp BP Pulse Ox
99.4 F 81 15 99/66 94
10/30/25 08:00 10/30/25 08:20 10/30/25 08:20 10/30/25 06:00 10/30/25 08:24
Intake and Output
12/10/30/25 10/31/25
06:59 06:59 06:59
Intake Total 2005.6 / 2238.6 2998.5 / 3154.0 155.5 / 155.5
Output Total 1360 / 1510 2388 / 2468 80 / 80
Balance 646.6 / 728.6 610.5 / 686.0 75.5 / 75.5
SaO2 [A/C] 95
SaO2 94
Physical Exam
General: Comfortable and Fever (Overnight up to 100.4)
HEENT: Normocephalic and Anicteric
Cardiovascular: S1-S2 and Regular Rhythm
Respiratory: Clear and Non-Labored Respirations
GI: Soft, Non Distended and Non Tender
Neurology: Other (Weaning off sedation)
Skin: Warm
Labs/Micro/Reports
Lab Data
10/30/25 03:21
10/30/25 03:21
Laboratory Results
10/29/25 10/29/25 10/29/25
10:52 17:00 21:00
APTT 26.7 Cancelled Cancelled
10/30/25
03:21
APTT 42.0 H
Microbiology
10/28/25 17:10 Blood/Venous Blood Culture - Preliminary
No Growth in 24 hours- Final report to follow
10/28/25 17:08 Blood/Venous Blood Culture - Preliminary
No Growth in 24 hours- Final report to follow
10/29/25 08:25 Sputum Gram Stain - Preliminary
10/29/25 08:25 Nose Nasal Screen MRSA (PCR) - Final
10/28/25 22:07 Urine Legionella Urinary Antigen - Final
Negative for Legionella pneumophila Serogroup 1 antigen.
A negative result does not rule out the possiblity of
Legionella infection due to other serogroups or species of
Legionella. Clinical correlation is recommended.
10/28/25 22:07 Urine Streptococcus pneumoniae Antigen (M - Final
Negative for Streptococcus pneumoniae antigen.
A negative result does not exclude infection with
Streptococcus pneumoniae. Clinical correlation is
recommended.
10/28/25 17:08 Nasal Swab Influenza Types A & B (LIZ) - Final
Negative for Influenza A & B, NAAT
Negative results must be combined with clinical observations
and patient history.
Nucleic Acid Amplification test (NAAT)performed on the
[employer] platform.
[2025-10-30 09:28] LABS: B.E. -3.4 mmol/L; HCO3 21.4 mmol/L (21-28); O2 Saturation % 95.9 % (94-98); PCO2 37 mmHg (35-48); PO2 75 mmHg (83-108)
[2025-10-30 09:45] LABS: APTT 51.6 Sec (23.4-35.0)
--- NOTE | 2025-10-30 10:00 | PTCARENOTE ---
Pt extubated to 6L N/C. Levo/fent/prop gtts off. PRN dilaudid provided for sternal discomfort...see MAR.
[2025-10-30] MEDS: LIDOCAINE 4% PATCH 1 PATCH TOPICAL (10:59)
[2025-10-30] MEDS: DILAUDID 0.5 MG IV ×3 (11:00→20:51)
[2025-10-30] MEDS: OFIRMEV 100 IV (11:01)
[2025-10-30 12:00] LABS: Glucose - Point of Care 114 mg/dl (70-99)
--- NOTE | 2025-10-30 12:00 | PTCARENOTE ---
Pt currently on 10L MFNC...sats 94%. Encouraged to cough and deep breath. Weak moist NPC noted. IS done 1000mls. Lungs dimished...coarse in bases. Anxious at times due to sternal pain from coughing...see MAR for prns provided. Remains on
heparin gtt @ 1400 units/hr. Safe environment confirmed.
[2025-10-30] MEDS: ROXICODONE 10 MG PO ×2 (12:44→18:05)
--- NOTE | 2025-10-30 14:38 | PN.CDI ---
CDI
- -
CDI:
Physician Documentation Request
Admit Date: 10/28/25 19:25
Dear ,
[facility] is using an adapted version of the 2016 Third International Consensus Definitions for Sepsis and Septic Shock (Sepsis-3) where sepsis is defined as life threatening organ dysfunction caused by a deregulated host response to infection.
Please reference the official [facility] Sepsis Recognition Tool for further information, which can be found on the Intranet under Infection Prevention.
Clinical Indicators Include:
Progress Notes: Documented in H&P, ' #Transaminitis, likely passive congestion s/p cardiac arrest vs end-organ damage 2/2 acute bacterial pneumonia w sepsis gentle IVF due to heart failure history...'
Progress note 10/29 ,'Acute respiratory failure with hypoxia...Shock cardiogenic/septic...'
Labs:
WBC: 13.0
Treatment: IV abx/IVFs
Based on your medical judgment, can you further clarify the diagnosis being monitored/treated this admission?
� Sepsis due to aspiration pneumonia with organ dysfunction of Acute Hypoxic Respiratory Failure
� Aspiration Pneumonia only
� Other ( please specify)
Use of terms such as suspected, likely, concern for, or probable (associated with a specific diagnosis that is being evaluated, monitored, or treated as if it exists) are acceptable and can be coded in the inpatient setting when documented at the
time of discharge.
Please use your independent medical judgement in providing your response.
Thank you,
Gris Guardado RN
CDI Specialist
[place] Text
--- NOTE | 2025-10-30 14:47 | PN.CDI ---
CDI
- -
CDI:
Physician Documentation Request
Admit Date: 10/28/25 19:25
Dear ,
[facility] is using an adapted version of the 2016 Third International Consensus Definitions for Sepsis and Septic Shock (Sepsis-3) where sepsis is defined as life threatening organ dysfunction caused by a deregulated host response to infection.
Please reference the official [facility] Sepsis Recognition Tool for further information, which can be found on the Intranet under Infection Prevention.
Clinical Indicators Include:
Progress Notes: Documented in H&P, ' #Transaminitis, likely passive congestion s/p cardiac arrest vs end-organ damage 2/2 acute bacterial pneumonia w sepsis gentle IVF due to heart failure history...'
Progress note 10/29 ,'Acute respiratory failure with hypoxia...Shock cardiogenic/septic...'
Antibiotics for aspiration pneumonia-evidence on CAT scan of the chest with bibasilar infiltrates Follow fever curve and leukocyte..'
Labs:
WBC: 13.0
Treatment: IV abx/IVFs
Based on your medical judgment, can you further clarify the diagnosis being monitored/treated this admission?
� Sepsis due to aspiration pneumonia with organ dysfunction of Acute Hypoxic Respiratory Failure
� Aspiration Pneumonia only
� Other ( please specify)
Use of terms such as suspected, likely, concern for, or probable (associated with a specific diagnosis that is being evaluated, monitored, or treated as if it exists) are acceptable and can be coded in the inpatient setting when documented at the
time of discharge.
Please use your independent medical judgement in providing your response.
Thank you,
Gris Guardado RN
CDI Specialist
[place] Text
--- NOTE | 2025-10-30 14:49 | PN.CDI ---
CDI
- -
CDI:
Physician Documentation Request
Admit Date: 10/28/25 19:25
Dear Doctor Jean Paul,
Please review the following and provide your response in the progress notes.
Clinical Indicators:
Pt admitted after VF/VT cardiac arrest / Cardiogenic shock/Acute Hypoxic Respiratory Failure intubated
Progress note 10/29, ' Shock cardiogenic/septic maintain map >6wean pressor as tolerated ....transaminitis monitor for now hold statin if getting worse can check ruqus/hep panel likely related to shock though would have suspect higher...'
Please provide the suspected etiology of the documented transaminitis:
Shock liver
Transaminitis only
Other ( please specify)
Use of terms such as suspected, likely, concern for, or probable (associated with a specific diagnosis that is being evaluated, monitored, or treated as if it exists) are acceptable and can be coded in the inpatient setting, when documented at the
time of discharge.
Thank you,
Gris Guardado RN
CDI Specialist
[place] Text
Please use your independent medical judgment in providing your response.
--- NOTE | 2025-10-30 15:00 | PTCARENOTE ---
Diaz d/c'd per . Assist x 2 to get OOB. Resting comfortably on 6L MFNC...sats 94-95%. Lungs diminished w/ crackles 1/2 up bilaterally. Encouraged to cough and deep breath. IS done...1000mls. Swallow eval done...diet advanced to
clear liquids. Call keen within reach.
--- NOTE | 2025-10-30 15:19 | W.PN.HOSP.TC ---
Today's Communication/Plan
-
Assessment / Plan
Assessment / Plan
Out of hospital VT/VFib arrest (I suspect that this occurred first and then he aspirated rather then the other way which was documented in the hnp)
Rosc achieved now on mechanically vented and Endotrac intubated
Not a candidate for TTM as his mental status was intact moving his extremities fighting back
2d echo EF 50-55, rv dilated/reduced (cta no pa filling defect to suspect pe), pasp 41
Monitor on tele
LHC no CAD
No evidence of additional VT/Fib to suspect need for IV amio per Cards
Cardiac MRI
AICD for secondary prevention, plan prior to DC
Acute respiratory failure with hypoxia
CTA no pulm arterial filling defect to suspect PE
Extubated (10/30) to 10l midflow
Wean as tolerated
Swallow eval
IS and Acapella if able to follow
HFrEF, nyha class 3-4, in shock/NICM
on levophed, wean as toelrated
hold diuretics
resumed sglt2i per cards
hold arni/arb
hold mra
Shoch cardiogentic/septic
maintain map >65
wean pressor as tolerated
start unasyn
transaminitis
monitor for now
hold statin
if getting worse can check ruqus/hep panel
likely related to shock though would have suspect higher
Pneumomediatinum vs ptx
ct minimal findings
daily cxr
paroxysmal afib
hold oral ac
started iv hep gtt
metabolic acidosis
will follow for now
would hold off on starting alkali therapy
likely related to shock
Anticipated Discharge: > 48 hours
Subjective/Interval History
-
Date of Service: October 30, 2025
Seen and examined. No new complaints. No acute overnight events.
Was just extubated prior to me evaluating him. Was still waking up.
Objective Data
-
Labs:
Laboratory Results
10/30/25 10/30/25 10/30/25
03:21 09:17 16:10
WBC 10.7
Hgb 12.6 L
Hct 37.7 L
Plt Count 188
APTT 42.0 H 51.6 H Pending
HCO3 21.4
Sodium 134 L
Potassium 3.9
Chloride 109 H
Carbon Dioxide 17 L
BUN 17
Creatinine 1.2
Glucose 141 H
Calcium 8.3 L
Vital Signs:
Vital Signs
Temp Pulse Resp BP Pulse Ox
100.0 F 82 15 131/83 94
10/30/25 12:16 10/30/25 13:00 10/30/25 08:20 10/30/25 12:00 10/30/25 13:00
I&O
10/29/25 10/30/25 10/31/25
06:59 06:59 06:59
Intake Total 2005.6 / 2238.6 2998.5 / 3154.0 707.0 / 707.0
Output Total 1360 / 1510 2388 / 2468 660 / 660
Balance 646.6 / 728.6 610.5 / 686.0 47.0 / 47.0
Physical Exam
-
General: Well Developed, Well Nourished and Comfortable; Negative Respiratory Distress or Appears in Distress
HEENT: Normocephalic and Atraumatic
Respiratory: Clear to Auscultation
Cardiac: Regular Rhythm and S1/S2
GI: Soft, Nontender, Nondistended and Normal Bowel Sounds
Musculoskeletal: No Clubbing and No Cyanosis
Skin: Warm and Dry
Neuro: Awake
Psych: Calm
--- NOTE | 2025-10-30 15:55 | PTCARENOTE ---
Pt remains OOB in chair. 6L MFNC...lungs diminished w/ crackles bilaterally. Heparin gtt infusing @ 1400 units/hr....PTT sent per protocol. Right radial jose armando redressed. Pt comfortable in chair w/ call keen and fresh water available. Safe
environment confirmed.
--- NOTE | 2025-10-30 16:15 | PTCARENOTE ---
Pt able to void about 50mls of cloudy driss urine w/ sediment.
[2025-10-30 16:19] LABS: APTT 44.9 Sec (23.4-35.0)
[2025-10-30] MEDS: HEPARIN 25000 UNITS/250 ML IV (16:45)
[2025-10-30] MEDS: TYLENOL 1000 MG PO (17:14)
[2025-10-30 17:24] LABS: Glucose - Point of Care 90 mg/dl (70-99)
[2025-10-30] MEDS: REMOVE LIDOCAINE PATCH 1 PATCH REMOVE (20:50)
[2025-10-30 21:37] LABS: Glucose - Point of Care 106 mg/dl (70-99)
--- NOTE | 2025-10-30 23:00 | PTCARENOTE ---
Pt requested CPAP for HS. BLOCK SETTER GYPSUM placed order for CPAP and RT applied CPAP onto pt at bedtime.
[2025-10-30 23:44] LABS: APTT 71.1 Sec (23.4-35.0)
[2025-10-31] VITALS (8 sets, daily range): BP systolic 120–143; BP diastolic 60–95; PULSE 78; BMI 36.1
[2025-10-31] MEDS: UNASYN IV ×2 (00:13→06:18)
[2025-10-31] MEDS: TYLENOL 1000 MG PO ×5 (00:13→23:21)
[2025-10-31] MEDS: ROXICODONE 10 MG PO ×4 (00:13→18:10)
[2025-10-31 06:02] LABS: Hematocrit 36.0 % (39.0-52.0); Hemoglobin 12.1 g/dL (13.0-18.0); Mean Corp Hgb Conc. 33.6 g/dL (33.0-37.0); Mean Corpuscular Volume 86.3 fL (80.0-94.0); Platelet Count 153 10^3/uL (130-400); Red Cell Dist. Width 14.3 % (11.5-14.5)
[2025-10-31 06:22] LABS: APTT 88.2 Sec (23.4-35.0)
[2025-10-31 06:25] LABS: Triglycerides 127 mg/dl (10-149)
[2025-10-31 06:37] LABS: Blood Urea Nitrogen 17 mg/dl (9-20); Calcium 8.7 mg/dl (8.4-10.2); Carbon Dioxide 22 mmol/L (22-30); Chloride 107 mmol/L (98-107); Estimated Creatinine Clearance 97 ml/min; Glucose 99 mg/dl (70-99); Potassium 3.8 mmol/L (3.5-5.1); Sodium 134 mmol/L (135-145); eGFR > 60.00
[2025-10-31] MEDS: HEPARIN 25000 UNITS/250 ML IV ×2 (07:25→21:13)
[2025-10-31 07:54] LABS: Glucose - Point of Care 84 mg/dl (70-99)
[2025-10-31] MEDS: FARXIGA 10 MG PO (08:14)
[2025-10-31] MEDS: MIRALAX 17 GRAMS TUBE (08:14)
[2025-10-31] MEDS: LIDOCAINE 4% PATCH 1 PATCH TOPICAL (08:14)
--- NOTE | 2025-10-31 08:20 | W.PN.INTV ---
Today's Communication / Plan
Recommendations
resume BB
transition to augmentin
transfer out of ICU
Assessment
-
Mr. Olmstead is a 70-year-old man with a past medical history of PVCs s/p ablation 2020, HFrEF last echo 2022 EF 45-50% with diastolic dysfunction, paroxysmal A-fib on Eliquis, gout, NORMAN, nonischemic cardiomyopathy, and acquired thrombophilia who
presented to the ER intubated after cardiac arrest. Patient has a history of PVCs, has not followed up for cardiac MRI and possible PVC ablation, cardiac arrest likely due to PVCs
#Neurologic
Pain: chest wall pain
Analgesia: Hydromorphone 0.25 as needed, lidocaine patch, tylenol Q6, oxycodone prn
Mentation: Patient intubated, at baseline AAO x 3
Activity:
No focal deficits
#Cardiovascular
Maintain MAP> 65
Pressors: None
QTc: 466
EKG 10/29 sinus rhythm with PACs and bigeminy
Cardiology following
Arrhythmogenic cardiac arrest
Ventricular tachycardia
Ventricular fibrillation
Elevated troponin
Cardiogenic shock
Hx of PVCs with ablation 2020
Patient follows at [facility] with Dr. Zakia Alcala, Dr. Patricio Bowens
Patient was supposed to follow-up with Dr. Bowens for cardiac MRI, possible repeat ablation for PVCs
Elevated troponin likely due to CPR/defibrillation, EKG is nonischemic
Low BPs required pressors, off pressors 10/30
LHC without signs of cardiac ischemic injury
Echocardiogram 10/29 LVEF 50-55%, right ventricle appears dilated with reduced function
- Plan for cardiac MRI
- Possible ICD placement prior to discharge
HFrEF
Last echo 2022 at EF 45-50%
Last echo 11/2024 EF 56%
Echocardiogram 10/29/25 LVEF 50-55%, right ventricle appears dilated with reduced function
On spironolactone, Entresto, Jardiance, metoprolol
- Hold GDMT due to hypotension
- Resume as tolerated
- Resume SGLT2i
- resume BB
Paroxysmal A-fib
Treated with Eliquis, now on hold
Diagnosed 2 months ago, follows with Dr. Zakia Alcala
- Continue heparin drip
#Respiratory
O2 requirements: 6 L nasal cannula, wean as tolerated
Sedation:
Home O2: None
Blood gas: 10/30 7.37/37/75/21
Acute hypoxemic respiratory failure due to cardiac arrest with aspiration pneumonia
s/p CPR and infield intubation
Elevated white count
COVID flu negative
Bilateral bibasilar consolidation on chest CT, chest x-ray
Concerning for sepsis/septic shock
Extubated 10/30
-Sputum cultures positive for gram-negative bacilli
- Unasyn transition to Augmentin
-Continue supportive care
#Gastrointestinal
Diet: Cholestrol lowering
Stooling regimen:
Tubes: None
Antiemetics:
GI PPx:
Transaminitis, resolving
Likely due to hypoperfusion
- Trend LFTs, improving
- Continue to monitor
#Renal
Diaz: No
Urine output: 450ml overnight
IVF: None
Electrolytes: K>4 Mg>2
Na 134
K 3.8
Mag
Acute kidney injury, resolved
Baseline 1.0 per chart review 2022
1.3 may be new baseline
S/p fluid resuscitation in the ED
Downtrending Cr 1.0
-Continue to monitor
#Infectious
WBC 13->10.5-> 10.7->10.0
ABX: Augmentin, day 4
Microbiology: COVID-negative, flu negative
Antipyretics:
Spiked fevers 100.4 10/30, resolved without intervention
Aspiration pneumonia
s/p CPR and infield intubation
Elevated white count
COVID flu negative
Bilateral bibasilar consolidation on chest CT, chest x-ray
Concerning for sepsis/septic shock
-Sputum cultures growing gram-negative bacilli
-Blood cultures no growth at 48 hours
-transition to augmentin, check Pro-Kike at day 5
-Continue supportive care
#Hematologic
DVT PPx: Heparin drip
Hemoglobin: 12.6
PT
INR
PTT 51.6
#Endocrine
Maintain euglycemia with goal BG 140�180
Low insulin sliding scale
#
Urine Legionella negative
Urine strep pneumo negative
#Surgical
#Access
Central:
None
Peripheral:
Left hand 22-gauge
Right cephalic 18
Right radial artery
CODE STATUS: Full code
Subjective Dataa
Subjective Data
Date of Service:
Saw patient saw patient this a.m. at bedside with family. He reports chest wall discomfort when he coughs but otherwise reports no shortness of breath or chest pain nausea vomiting abdominal pain or pain with urination. He remembers last working
on preparing [employer]! before waking up in the hospital. Date of Service: October 31, 2025
Review of Systems
General: Pain (Chest wall)
Cardiopulmonary: Cough
Objective Data
Data Reviewed
Vital Signs / I&O / Oxygen:
Vital Signs
Temp Pulse Resp BP Pulse Ox
98.1 F 91 15 140/79 94
10/31/25 03:31 10/31/25 06:00 10/30/25 08:20 10/31/25 02:00 10/31/25 06:00
Intake and Output
10/30/25 10/31/25 11/01/25
06:59 06:59 06:59
Intake Total 2998.5 / 3154.0 1772.0 / 1772.0
Output Total 2388 / 2468 1160 / 1160
Balance 610.5 / 686.0 612.0 / 612.0
SaO2 [A/C] 96
SaO2 94
Physical Exam
General: Comfortable
HEENT: Normocephalic and Anicteric
Cardiovascular: S1-S2 and Regular Rhythm
Respiratory: Clear and Non-Labored Respirations
GI: Soft, Distended and Non Tender
Neurology: Awake, Alert, Oriented and Other (Weaning off sedation)
Skin: Warm
Labs/Micro/Reports
Lab Data
10/31/25 05:53
Laboratory Results
10/30/25 10/30/25 10/30/25
09:17 15:44 23:20
APTT 51.6 H 44.9 H 71.1 H
pH 7.37
pCO2 37
pO2 75 L
HCO3 21.4
O2 Delivery Level
10/31/25
05:53
APTT 88.2 H
pH
pCO2
pO2
HCO3
O2 Delivery Level
Microbiology
10/28/25 17:10 Blood/Venous Blood Culture - Preliminary
No Growth in 48 hours- Final report to follow
10/28/25 17:08 Blood/Venous Blood Culture - Preliminary
No Growth in 48 hours- Final report to follow
10/29/25 08:25 Sputum Respiratory Culture - Preliminary
Gram negative bacilli
10/29/25 08:25 Sputum Gram Stain - Preliminary
10/29/25 08:25 Nose Nasal Screen MRSA (PCR) - Final
10/28/25 22:07 Urine Legionella Urinary Antigen - Final
Negative for Legionella pneumophila Serogroup 1 antigen.
A negative result does not rule out the possiblity of
Legionella infection due to other serogroups or species of
Legionella. Clinical correlation is recommended.
10/28/25 22:07 Urine Streptococcus pneumoniae Antigen (M - Final
Negative for Streptococcus pneumoniae antigen.
A negative result does not exclude infection with
Streptococcus pneumoniae. Clinical correlation is
recommended.
10/28/25 17:08 Nasal Swab Influenza Types A & B (LIZ) - Final
Negative for Influenza A & B, NAAT
Negative results must be combined with clinical observations
and patient history.
Nucleic Acid Amplification test (NAAT)performed on the
[employer] platform.
--- NOTE | 2025-10-31 08:54 | PTCARENOTE ---
Received pt awake.Speech is appropriate.+MIJARES.c/o sternal,rib pain with coughing and movement.Air cushion provided for splinting.SR with PVC's noted.Heparin gtt infusing.Right A line intact.Coarse breath sounds,diminished bibasilar .POX 97% O2 6l
midflow.Tolerating clear liquids.No difficulty swallowing.No BM.Voiding in urinal.Right groin intact.Pt's son at bedside.Plan of care discussed.
--- NOTE | 2025-10-31 09:09 | W.PN.CD ---
Today's Communication / Plan
-
Cardiac MRI today
Resume BB
Tentative ICD Wednesday
Impression / Plan
-
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
following an tjd-pu-tomcfoda cardiac arrest.
Primary E Learning Manager: Dr. Zakia Alcala, Dr. Bowens ([facility], [facility])
Cardiac arrest
- Initial rhythm was VF requiring defibrillation and epinephrine to achieve ROSC. Suspect arrhythmogenic given increasing NSVT as outpatient. C with no obstructive CAD. CTA C/A/P with no acute findings.
- Plan for cardiac MRI today
- ICD prior to discharge
- Resume home Metoprolol 25 BID
Abnormal troponin, acute nonischemic myocardial injury in the setting of defibrillation and CPR
- Peak troponin 1.170
- EKG appears nonischemic
Dilated cardiomyopathy (LVEF 50%)
- He does not appear volume overloaded
- No sarcoid on outpatient PET, the plan was to repeat outpatient MRI to assess for infiltrative cardiomyopathy by his primary ground operations crew member, given increasing NSVT
- GDMT as tolerated:
-RASSi: Entresto on hold. Resume as tolerated
-SGLT2 inhibitor: Jardiance 10 mg daily, auto substituted for Farxiga during hospitalization
-Aldosterone agonist: Spironolactone 12.5 mg daily on hold. Resume as tolerated
-Beta eddie: Metoprolol succinate 25 BID resumed
-Isosorbide/Hydralazine:�Not currently indicated
-ICD: Prior to discharge
- Trend daily weight, I/O
PVCs, prior ablation in 2020, most recent burden 16% despite being on maximally tolerated beta-eddie
Subjective: Feels well. Has pain when coughing which he attributes to chest compressions.
Telemetry: Multifocal PVCs
Physical Exam
Vital Signs/Labs
Vital Signs
Temp Pulse Resp BP Pulse Ox
98.1 F 71 15 140/79 97
10/31/25 03:31 10/31/25 08:00 10/30/25 08:20 10/31/25 02:00 10/31/25 08:00
10/30/25 10/31/25 11/01/25
06:59 06:59 06:59
Actual Weight 284 lb 6.341 oz 288 lb 12.889 oz
10/31/25 05:53
PT 14.9 Sec (11.4-14.6) H 10/28/25 22:05
INR 1.15 10/28/25 22:05
APTT 88.2 Sec (23.4-35.0) H 10/31/25 05:53
Magnesium 1.8 mg/dl (1.6-2.3) 10/30/25 03:21
Triglycerides 127 mg/dl (10-149) 10/31/25 05:53
LDL Cholesterol, Calc 55 mg/dl 10/29/25 04:07
VLDL Cholesterol, Calc 31 mg/dl (0-30) H 10/29/25 04:07
HDL Cholesterol 51 mg/dl 10/29/25 04:07
10/28/25
15:33
Nmg-L-Yktcksyhtqa Pept 44.2
LAB Results
10/28/25 10/28/25 10/28/25
15:33 17:08 22:24
Troponin I 0.045 H* 0.256 H* D 1.170 H* D
10/29/25
04:07
Troponin I 0.920 H*
Physical Exam
Constitutional: No acute distress and Comfortable
Cardiovascular: Rhythm & rate is regular, Pedal edema is absent, S1S2 is normal and Murmur/rub/gallop absent
Respiratory: Respiratory effort normal
Neuro/Psych: AO x 3
Other: Cath Site (groin soft with no ecchymosis or erythema)
Data Reviewed
-
Date of Service: October 31, 2025
Medical Decision Making: Reviewed Test Results, Test Interpretation and Review of Case with other Provider
EKG: Tracing Personally Visualized and interpreted
Echo: Report Reviewed by me
Labs: Labs Reviewed by me
[2025-10-31 10:00] LABS: ALT (SGPT) 91 U/L (0-50); AST (SGOT) 46 U/L (17-59); Albumin 3.3 g/dl (3.5-5.0); Alkaline Phosphatase 64 U/L (38-126); Total Protein 5.8 g/dl (6.3-8.2)
[2025-10-31] MEDS: TOPROL XL 25 MG PO ×2 (10:54→20:23)
--- NOTE | 2025-10-31 11:16 | PTCARENOTE ---
Pt assessed.No change in assessment noted.Assisted oob to chair with 2 person moderate assist.
[2025-10-31 11:55] LABS: Glucose - Point of Care 81 mg/dl (70-99)
--- NOTE | 2025-10-31 12:19 | CM ---
Chart reviewed. Remains in ICU
Weaning sedation for extubation
Wean off pressors
Continue ABX
CM will continue to follow up for any dcp needs
--- NOTE | 2025-10-31 12:24 | W.PN.HOSP.TC ---
Today's Communication/Plan
-
Monitor vital signs see plan
Wean oxygen as tolerated
Cardiac MRI
Continue metoprolol
Eventual ICD
Assessment / Plan
Assessment / Plan
Out of hospital VT/VFib arrest (I suspect that this occurred first and then he aspirated rather then the other way which was documented in the hnp)
Rosc achieved, Was intubated. Now extubated
Not a candidate for TTM as his mental status was intact moving his extremities fighting back
2d echo EF 50-55, rv dilated/reduced (cta no pa filling defect to suspect pe), pasp 41
LHC no CAD
No evidence of additional VT/Fib to suspect need for IV amio per Cards
Cardiac MRI
AICD for secondary prevention, Possibly on Wednesday per cardiology
Metoprolol restarted
Acute respiratory failure with hypoxia
CTA no pulm arterial filling defect to suspect PE
Extubated (10/30) to midflow, Now on 6 L
Wean as tolerated
IS and Acapella if able to follow
HFrEF, nyha class 3-4, in shock/NICM
on levophed, wean as toelrated
hold diuretics
resumed sglt2i per cards
hold arni/arb
Shock cardiogenic/septic
Appears resolved
Not on any pressors
Suspect bilateral pneumonia could be secondary to aspiration
Now on Augmentin
Monitor
transaminitis
monitor for now
hold statin
if getting worse can check ruqus/hep panel
likely related to shock though would have suspect higher
Pneumomediatinum vs ptx
ct minimal findings
xray not much change
paroxysmal afib
hold oral ac
started iv hep gtt
metabolic acidosis likely related to septic shock
Continue to monitor
Improving
DVT prophylaxis
Heparin drip
Full code
General: Well Developed, Well Nourished and Comfortable; Negative Respiratory Distress or Appears in Distress
HEENT: Normocephalic and Atraumatic
Respiratory: Clear to Auscultation, on NC
Cardiac: Regular Rhythm and S1/S2
GI: Soft, Nontender, Nondistended and Normal Bowel Sounds
Musculoskeletal: No Clubbing and No Cyanosis
Skin: Warm and Dry
Neuro: Awake
Psych: Calm
I spent a total of 52 minutes with the patient or on the floor. More than 50% of this time involved counseling and coordination of care.
Anticipated Discharge: > 48 hours
Subjective/Interval History
-
Date of Service: October 31, 2025
Does have some pain
Objective Data
-
Labs:
Laboratory Results
10/31/25 10/31/25 10/31/25
05:53 06:21 11:54
WBC 10.0
Hgb 12.1 L
Hct 36.0 L
Plt Count 153
APTT 88.2 H Pending
Sodium 134 L Pending
Potassium 3.8 Pending
Chloride 107 Pending
Carbon Dioxide 22 Pending
BUN 17 Pending
Creatinine 1.0 Pending
Glucose 99 Pending
Calcium 8.7 Pending
Total Bilirubin 1.8 H
AST 46
ALT 91 H
Alkaline Phosphatase 64
Vital Signs:
Vital Signs
Temp Pulse Resp BP Pulse Ox
98.1 F 77 15 140/79 96
10/31/25 03:31 10/31/25 10:00 10/30/25 08:20 10/31/25 02:00 10/31/25 10:00
I&O
10/30/25 10/31/25 11/01/25
06:59 06:59 06:59
Intake Total 2998.5 / 3154.0 1772.0 / 1789.0 325 / 325
Output Total 2388 / 2468 1160 / 1160 525 / 525
Balance 610.5 / 686.0 612.0 / 629.0 -200 / -200
[2025-10-31 12:25] LABS: APTT 63.7 Sec (23.4-35.0)
--- NOTE | 2025-10-31 15:15 | PTCARENOTE ---
Pt c/o esophageal burning after lunch.HR 73 SR. 120/82. made aware.
[2025-10-31] MEDS: PEPCID 20 MG IV (15:35)
[2025-10-31] MEDS: MAALOX 30 ML PO (15:35)
--- NOTE | 2025-10-31 15:47 | PTCARENOTE ---
Pt reports good relief of esophageal burning after Maalox and Pepcid given.
--- NOTE | 2025-10-31 16:00 | PTCARENOTE ---
Pt assessed.No change in assessment noted.Report given to IVU RN.Pt transported to 2248 via bed.
[2025-10-31 18:11] LABS: Glucose - Point of Care 73 mg/dl (70-99)
--- NOTE | 2025-10-31 18:18 | PTCARENOTE ---
received tx from icu. pt is sr w/ frequent pvcs. vss. pt c/o pain in sternum 05/17, oxy given as ordered. pt c/o of 'coughing and feeling like he can't bring up the mucus.' notified dr. santos, Mucinex ordered, see MAR. Pt educated on plan of care and
pt verbalized understanding. family at bedside. call keen within reach.
[2025-10-31] MEDS: TUMS CHEWABLE TABLET 200 MG PO (20:24)
[2025-10-31] MEDS: MUCINEX 600 MG PO (20:24)
[2025-10-31] MEDS: REMOVE LIDOCAINE PATCH 1 PATCH REMOVE (20:29)
[2025-10-31] MEDS: MUCINEX PO (20:30)
[2025-10-31 20:45] LABS: APTT 64.6 Sec (23.4-35.0)
[2025-10-31] MEDS: AUGMENTIN 875 MG/125 MG 1 TABLET PO (21:58)
[2025-10-31] MEDS: DILAUDID 0.5 MG IV (23:23)
[2025-10-31] MEDS: DUONEB 3 ML INH (23:26)
[2025-10-31 23:56] LABS: Glucose - Point of Care 92 mg/dl (70-99)
[2025-11-01 04:15] LABS: APTT 77.6 Sec (23.4-35.0)
[2025-11-01 04:41] VITALS: BP 129/80
[2025-11-01] MEDS: TYLENOL 1000 MG PO ×4 (05:41→23:08)
[2025-11-01] MEDS: ROXICODONE 10 MG PO ×3 (05:42→20:46)
[2025-11-01] MEDS: COLACE 100 MG PO (05:46)
[2025-11-01] MEDS: SENOKOT 17.2 MG PO (05:46)
[2025-11-01 05:54] VITALS: BMI 35.7
--- NOTE | 2025-11-01 06:02 | PTCARENOTE ---
Pt NSR with PVCs on monitor, VSS. C/O sternum pain with a cough /10. PRN meds given. Pt wean off oxygen to 3L with PlOx 95%.
[2025-11-01 07:07] VITALS: BP 122/82
[2025-11-01 08:14] LABS: Magnesium 1.8 mg/dl (1.6-2.3)
[2025-11-01 08:31] LABS: Glucose - Point of Care 88 mg/dl (70-99)
--- NOTE | 2025-11-01 08:36 | W.PN.CD ---
Today's Communication / Plan
-
- Stop heparin drip
- Cardiac MRI in AM
- Likely ICD tomorrow.
Impression / Plan
-
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
following an rvl-bn-mdtaqdol cardiac arrest.
Primary Medical Laboratory Technologist: Dr. Zakia Alcala, Dr. Bowens ([facility], [facility])
Cardiac arrest
- Initial rhythm was VF requiring defibrillation and epinephrine to achieve ROSC. Suspect arrhythmogenic given increasing NSVT as outpatient. LHC with no obstructive CAD. CTA C/A/P with no acute findings.
- Plan for cardiac MRI tomorrow
- ICD prior to discharge
- Resume home Metoprolol 25 BID
Abnormal troponin, acute nonischemic myocardial injury in the setting of defibrillation and CPR
- Peak troponin 1.170
- EKG appears nonischemic
- Cath 10/29/25: Right dominant circulation with no occlusive coronary artery disease.
- Severely elevated filling pressures (LVEDP = 25 mmHg at 127.9 kg) on a PEEP of 5 cmH2O - during RHC
Dilated cardiomyopathy (LVEF 50%)
- He does not appear volume overloaded
- No sarcoid on outpatient PET, the plan was to repeat outpatient MRI to assess for infiltrative cardiomyopathy by his primary thumb sewer, given increasing NSVT
- GDMT as tolerated:
-RASSi: Entresto on hold. Resume as tolerated
-SGLT2 inhibitor: Jardiance 10 mg daily, auto substituted for Farxiga during hospitalization
-Aldosterone agonist: Spironolactone 12.5 mg daily on hold. Resume as tolerated
-Beta eddie: Metoprolol succinate 25 BID resumed
-Isosorbide/Hydralazine:�Not currently indicated
-ICD: Prior to discharge
- Trend daily weight, I/O
PVCs, prior ablation in 2020, most recent burden 16% despite being on maximally tolerated beta-eddie
Subjective: Feels well. Has pain when coughing which he attributes to chest compressions.
Telemetry: Multifocal PVCs
Physical Exam
Vital Signs/Labs
Vital Signs
Temp Pulse Resp BP Pulse Ox
98.6 F 81 18 122/82 92
11/01/25 07:04 11/01/25 07:07 11/01/25 07:04 11/01/25 07:07 11/01/25 07:04
10/31/25 11/01/25 11/02/25
06:59 06:59 06:59
Actual Weight 131 kg 129.7 kg
PT 14.9 Sec (11.4-14.6) H 10/28/25 22:05
INR 1.15 10/28/25 22:05
APTT 77.6 Sec (23.4-35.0) H 11/01/25 03:31
Magnesium 1.8 mg/dl (1.6-2.3) 10/31/25 05:53
Triglycerides 127 mg/dl (10-149) 10/31/25 05:53
LDL Cholesterol, Calc 55 mg/dl 10/29/25 04:07
VLDL Cholesterol, Calc 31 mg/dl (0-30) H 10/29/25 04:07
HDL Cholesterol 51 mg/dl 10/29/25 04:07
10/28/25
15:33
Xzk-P-Tiklvtjkhjo Pept 44.2
Physical Exam
Constitutional: No acute distress and Comfortable
EENT: Anicteric and Moist mucous membranes
Cardiovascular: Rhythm & rate is regular, Pedal edema is absent and JVD pressure is normal
Respiratory: Respiratory effort normal and Lungs clear to auscul.
GI: Soft, Distention absent and Normal bowel sounds
Neuro/Psych: Alert, Oriented and AO x 3
Data Reviewed
-
Date of Service: November 01, 2025
Medical Decision Making: Reviewed Test Results, Test Interpretation and Review of Case with other Provider
EKG: Tracing Personally Visualized and interpreted
Echo: Report Reviewed by me
X-Ray/CT/US/MRI/NUC/PET: Image Personally Visualized and interpreted
Medical Tests (PFT, Pathology etc): Image Personally Visualized and interpreted
Labs: Labs Reviewed by me
Old Records: Reviewed
[2025-11-01] MEDS: MUCINEX 600 MG PO ×2 (08:51→20:38)
[2025-11-01] MEDS: FARXIGA 10 MG PO (08:51)
[2025-11-01] MEDS: AUGMENTIN 875 MG/125 MG 1 TABLET PO ×2 (08:51→20:38)
[2025-11-01] MEDS: TOPROL XL 25 MG PO ×2 (08:52→20:38)
[2025-11-01] MEDS: LIDOCAINE 4% PATCH 1 PATCH TOPICAL (08:52)
[2025-11-01] MEDS: MIRALAX 17 GRAMS TUBE (08:52)
[2025-11-01] MEDS: FLUSH (NSS) 1 FLUSH IV ×2 (08:53→08:54)
[2025-11-01 10:11] LABS: Hematocrit 37.5 % (39.0-52.0); Hemoglobin 12.3 g/dL (13.0-18.0); Mean Corp Hgb Conc. 32.8 g/dL (33.0-37.0); Mean Corpuscular Volume 87.0 fL (80.0-94.0); Nucleated Red Blood Cells % 0 % (-); Platelet Count 172 10^3/uL (130-400); Red Cell Dist. Width 14.1 % (11.5-14.5)
[2025-11-01] MEDS: HEPARIN 25000 UNITS/250 ML IV (10:25)
--- NOTE | 2025-11-01 10:25 | PTCARENOTE ---
Addendum entered by Tracee Rodriguez RN 11/01/25 14:06:
He did have some dizziness while sitting on the side of the bed before rising to the commode. It did subside after a few minutes.
Original Note:
The patient is aaox3, his vital signs are stable. He is 91% on RA. NSR with frequent PVCs are noted on the monitor. His pain in his chest (fx rib site) is tolerable at the moment and rates it a 4/10 on scale. I assisted him to the commode then to
the chair x 1 assist. He urinated clear yellow urine. He has not had a BM since admission, Miralax given to him this morning.
[2025-11-01 10:32] LABS: APTT 74.3 Sec (23.4-35.0)
[2025-11-01 10:42] LABS: ALT (SGPT) 66 U/L (0-50); AST (SGOT) 38 U/L (17-59); Albumin 3.4 g/dl (3.5-5.0); Alkaline Phosphatase 66 U/L (38-126); Blood Urea Nitrogen 17 mg/dl (9-20); Calcium 9.4 mg/dl (8.4-10.2); Carbon Dioxide 26 mmol/L (22-30); Chloride 105 mmol/L (98-107); Estimated Creatinine Clearance 97 ml/min; Glucose 102 mg/dl (70-99); Potassium 3.9 mmol/L (3.5-5.1); Sodium 137 mmol/L (135-145); Total Protein 6.2 g/dl (6.3-8.2); eGFR > 60.00
[2025-11-01 11:08] VITALS: BP 119/73
--- NOTE | 2025-11-01 11:35 | PTCARENOTE ---
The patient stated that he was nauseous post pain medication. I gave him crackers and hillary jose cruz to help relieve his symptoms. Shorty after his nausea resolved.
--- NOTE | 2025-11-01 11:52 | W.PN.HOSP.TC ---
Today's Communication/Plan
-
Monitor vitals
See plan
Cardiac MRI pending
Also need ICD placement prior to discharge
PT evaluation
Assessment / Plan
Assessment / Plan
Out of hospital VT/VFib arrest (I suspect that this occurred first and then he aspirated rather then the other way which was documented in the hnp)
Rosc achieved, Was intubated. Now extubated 10/30
Not a candidate for TTM as his mental status was intact moving his extremities fighting back
2d echo EF 50-55, rv dilated/reduced (cta no pa filling defect to suspect pe), pasp 41
LHC no CAD
No evidence of additional VT/Fib to suspect need for IV amio per Cards
Cardiac MRI pending
AICD for secondary prevention, Possibly on Wednesday per cardiology
Metoprolol restarted
Also on
Acute respiratory failure with hypoxia
CTA no pulm arterial filling defect to suspect PE
Extubated (10/30) to midflow, Now on 6 L
Wean as tolerated
IS and Acapella if able to follow
HFrEF, nyha class 3-4, in shock/NICM
on levophed, wean as tolerated
hold diuretics
resumed sglt2i per cards
hold arni/arb
Shock cardiogenic/septic
Appears resolved
Not on any pressors
Suspect bilateral pneumonia could be secondary to aspiration
Now on Augmentin, Last dose 11/03
Monitor
Chest x-ray with pneumonia
transaminitis
monitor for now, Improving
hold statin
if getting worse can check luqus/hep panel
likely related to shock though would have suspect higher
Pneumomediatinum vs ptx
ct minimal findings
xray not much change
paroxysmal afib
hold oral ac
Continue iv hep gtt
metabolic acidosis likely related to septic shock
Continue to monitor, Resolved
Improving
DVT prophylaxis
Heparin drip
Full code
General: Well Developed, Well Nourished and Comfortable; Negative Respiratory Distress or Appears in Distress
HEENT: Normocephalic and Atraumatic
Respiratory: Clear to Auscultation, on NC
Cardiac: Regular Rhythm and S1/S2
GI: Soft, Nontender, Nondistended and Normal Bowel Sounds
Musculoskeletal: No Clubbing and No Cyanosis
Neuro: Awake
Psych: Calm
I spent a total of 51 minutes with the patient or on the floor. More than 50% of this time involved counseling and coordination of care.
Anticipated Discharge: > 48 hours
Subjective/Interval History
-
Date of Service: November 01, 2025
denies nausea
Objective Data
-
Labs:
Laboratory Results
11/01/25 11/01/25
03:31 09:57
WBC 7.5
Hgb 12.3 L
Hct 37.5 L
Plt Count 172
APTT 77.6 H 74.3 H
Sodium 137
Potassium 3.9
Chloride 105
Carbon Dioxide 26
BUN 17
Creatinine 1.0
Glucose 102 H
Calcium 9.4
Total Bilirubin 1.3
AST 38
ALT 66 H
Alkaline Phosphatase 66
Vital Signs:
Vital Signs
Temp Pulse Resp BP Pulse Ox
97.7 F 81 19 122/82 91
11/01/25 11:05 11/01/25 07:07 11/01/25 11:05 11/01/25 07:07 11/01/25 11:05
I&O
10/31/25 11/01/25 11/02/25
06:59 06:59 06:59
Intake Total 1772.0 / 1789.0 2097 / 2097
Output Total 1160 / 1160 1675 / 1675 725 / 725
Balance 612.0 / 629.0 797 / 423 -709 / -475
[2025-11-01 12:10] LABS: Glucose - Point of Care 130 mg/dl (70-99)
--- NOTE | 2025-11-01 12:14 | PTCARENOTE ---
Addendum entered by Tracee Rodriguez RN 11/01/25 12:29:
Assisted the patient back to bed x1 assist and a RW. Defibrillator pads placed on the patient.
Original Note:
The patient had an 11 beat run of VT while sitting in his chair. He was asymptomatic. Dr. Champagne notified.
--- NOTE | 2025-11-01 13:10 | W.PN.PUL3 ---
Addendum entered and electronically signed by Scar Watson MD 11/01/25 13:33:
It is noted that the patient through the course of the day improved.
Oxygen has been weaned off.
He is only using for comfort.
Should continue with his nocturnal CPAP
Complete antibiotics
Continue cardiac management
Eventual radiographic follow-up in the outpatient setting-follows up with Dr. Lofton.
Sign off.
Please call with questions.
Original Note:
Today's Communication / Plan
-
Continue Augmentin for 2 more days
Incentive spirometer
Nebulizers as needed
Wean off oxygen
Cardiac MRI
Eventual ICD
Home oxygen assessment prior to discharge
Eventual radiographic follow-up in the outpatient setting
Will follow briefly
Assessment
-
Mr. Olmstead is a 70-year-old man with a past medical history of PVCs s/p ablation 2020, HFrEF last echo 2022 EF 45-50% with diastolic dysfunction, paroxysmal A-fib on Eliquis, gout, NORMAN, nonischemic cardiomyopathy, and acquired thrombophilia who
presented to the ER intubated after cardiac arrest. Patient has a history of PVCs, has not followed up for cardiac MRI and possible PVC ablation, cardiac arrest likely due to PVCs.
Intubated on mechanical ventilation subsequently extubated.
Treated also for aspiration pneumonia-
Pulmonary now following on the floors 11/01/2025 for hypoxemia and aspiration.
Acute hypoxemic respiratory postcardiac arrest.
Status post few days of intubation-extubated successfully.
CT of the chest with bilateral bibasilar infiltrates suggestive of aspiration pneumonia
Seems to be responding to antibiotics-complete course of Augmentin.
Sputum culture with Serratia and E. coli-again, he seems to be responding to current antibiotic course.
No leukocytosis/afebrile
Clinically improved
Chest x-ray 11/01/2025: Progressive bibasilar infiltrates-suspect some component of atelectasis as well.
Incentive spirometry encouraged
Increase activity as able
Oxygen needs improved 91% on room air. 2 L down from 6 L.
Arrhythmogenic cardiac arrest
Ventricular tachycardia
Ventricular fibrillation
-
Hx of PVCs with ablation 2020
Patient follows at [place] with Dr. Zakia Alcala, Dr. Patricio Bowens
Patient was supposed to follow-up with Dr. Bwoens for cardiac MRI, possible repeat ablation for PVCs
Elevated troponin likely due to CPR/defibrillation, EKG is nonischemic
Low BPs required pressors, off pressors 10/30
LHC without signs of cardiac ischemic injury
Echocardiogram 10/29 LVEF 50-55%, right ventricle appears dilated with reduced function
- Plan for cardiac MRI
- ICD placement prior to discharge
HFrEF
Last echo 2022 at EF 45-50%
Last echo 11/2024 EF 56%
Echocardiogram 10/29/25 LVEF 50-55%, right ventricle appears dilated with reduced function
On spironolactone, Entresto, Jardiance, metoprolol
Continue with cardiac management
Paroxysmal A-fib
Treated with Eliquis, now on hold
Diagnosed 2 months ago, follows with Dr. Zakia Alcala
- Continue heparin drip-per cardiology
Pulmonary will continue to follow briefly for hypoxemia and aspiration pneumonitis.
Eventual need radiographic follow-up.
Suspect x-ray will improve as the patient increases mobility
Subjective Data
-
Date of Service:
Date of Service: November 01, 2025
Chief Complaint: Pulmonary Follow Up (S/p cardiac arrest-aspiration pneumonia and hypoxemia)
Subjective:
Denies any significant pulmonary symptoms
Denies phlegm production
Continues to report some chest discomfort post CPR
Review of Systems
Cardiopulmonary: Dyspnea (none at rest) and Cough (n)
GI: Abdominal Pain (n) and Nausea (n)
Objective Data
Data Reviewed
Vital Signs / I&O / Oxygen:
Vital Signs
Temp Pulse Resp BP Pulse Ox
97.7 F 80 19 119/73 91
11/01/25 11:05 11/01/25 12:00 11/01/25 11:05 11/01/25 11:08 11/01/25 11:05
Intake and Output
10/31/25 11/01/25 11/02/25
06:59 06:59 06:59
Intake Total 1772.0 / 1789.0 2097 / 2097
Output Total 1160 / 1160 1675 / 1675 725 / 725
Balance 612.0 / 629.0 423 / 423 -725 / -725
SaO2 [A/C] 96
SaO2 91
Nasal Cannula flow liters per 3
minute
Physical Exam
General: Comfortable
HEENT: Normocephalic
Cardiovascular: S1-S2 and Other (Chest tenderness to palpation)
Respiratory: Non-Labored Respirations
GI: Soft and Non Distended
Neurology: Awake, Alert and No Motor Deficits
Skin: Warm
Labs/Micro/Reports
Lab Data
11/01/25 09:57
11/01/25 09:57
Laboratory Results
10/31/25 11/01/25 11/01/25
20:20 03:31 09:57
APTT 64.6 H 77.6 H 74.3 H
Microbiology
10/29/25 08:25 Sputum Respiratory Culture - Final
Escherichia coli
Serratia marcescens
10/29/25 08:25 Sputum Gram Stain - Final
10/28/25 17:10 Blood/Venous Blood Culture - Preliminary
No Growth in 72 hours- Final report to follow
10/28/25 17:08 Blood/Venous Blood Culture - Preliminary
No Growth in 72 hours- Final report to follow
10/29/25 08:25 Nose Nasal Screen MRSA (PCR) - Final
10/28/25 22:07 Urine Legionella Urinary Antigen - Final
Negative for Legionella pneumophila Serogroup 1 antigen.
A negative result does not rule out the possiblity of
Legionella infection due to other serogroups or species of
Legionella. Clinical correlation is recommended.
10/28/25 22:07 Urine Streptococcus pneumoniae Antigen (M - Final
Negative for Streptococcus pneumoniae antigen.
A negative result does not exclude infection with
Streptococcus pneumoniae. Clinical correlation is
recommended.
--- NOTE | 2025-11-01 13:32 | PTCARENOTE ---
Heparin gtt dc'd as per order
[2025-11-01 14:54] VITALS: BP 133/87
[2025-11-01 17:35] LABS: Glucose - Point of Care 148 mg/dl (70-99)
[2025-11-01] MEDS: TUMS CHEWABLE TABLET 400 MG PO (17:45)
[2025-11-01 18:53] VITALS: BP 145/97
[2025-11-01 22:06] VITALS: BP 134/94
[2025-11-01 22:11] LABS: Glucose - Point of Care 131 mg/dl (70-99)
[2025-11-01] MEDS: REMOVE LIDOCAINE PATCH 1 PATCH REMOVE (22:25)
[2025-11-02] VITALS (16 sets, daily range): BP systolic 108–155; BP diastolic 76–97; PULSE 76; O2SAT 90; BMI 35.5
[2025-11-02 03:53] LABS: Hematocrit 39.1 % (39.0-52.0); Hemoglobin 12.9 g/dL (13.0-18.0); Mean Corp Hgb Conc. 33.0 g/dL (33.0-37.0); Mean Corpuscular Volume 87.3 fL (80.0-94.0); Nucleated Red Blood Cells % 0 % (-); Platelet Count 200 10^3/uL (130-400); Red Cell Dist. Width 14.0 % (11.5-14.5)
[2025-11-02 04:05] LABS: APTT 27.4 Sec (23.4-35.0)
[2025-11-02 04:45] LABS: ALT (SGPT) 61 U/L (0-50); AST (SGOT) 37 U/L (17-59); Albumin 3.5 g/dl (3.5-5.0); Alkaline Phosphatase 81 U/L (38-126); Blood Urea Nitrogen 18 mg/dl (9-20); Calcium 9.1 mg/dl (8.4-10.2); Carbon Dioxide 26 mmol/L (22-30); Chloride 106 mmol/L (98-107); Estimated Creatinine Clearance 88 ml/min; Glucose 94 mg/dl (70-99); Potassium 4.0 mmol/L (3.5-5.1); Sodium 137 mmol/L (135-145); Total Protein 6.4 g/dl (6.3-8.2); eGFR > 60.00
--- NOTE | 2025-11-02 06:10 | PTCARENOTE ---
Pt NSR with PVCs on monitor, VSS. c/o chest pain with cough. PRN meds given.
[2025-11-02] MEDS: TYLENOL 1000 MG PO ×3 (06:27→20:29)
[2025-11-02] MEDS: SENOKOT 17.2 MG PO (06:28)
[2025-11-02] MEDS: AUGMENTIN 875 MG/125 MG 1 TABLET PO ×2 (09:23→20:24)
[2025-11-02] MEDS: MUCINEX 600 MG PO ×2 (09:23→20:24)
[2025-11-02] MEDS: XANAX 0.25 MG PO (09:23)
[2025-11-02] MEDS: TOPROL XL 25 MG PO ×2 (09:23→20:24)
[2025-11-02] MEDS: FARXIGA 10 MG PO (09:23)
[2025-11-02 10:15] LABS: Glucose - Point of Care 102 mg/dl (70-99)
--- NOTE | 2025-11-02 10:29 | W.ICD.CONTRA ---
Post ICD/DEVELOPMENT SPEC-D
-
History of MO?: No
LV Function
Left ventricular function study result?: Ejection Fraction >/= 40%
ACEI/ARB/ARNI
Patient already on ACEI/ARB/ARNI: Yes
Beta-Katherin
Patient already on Beta Katherin: Yes
--- NOTE | 2025-11-02 10:45 | PTCARENOTE ---
pt off unit for MRI. notified dr. Reaves of pt wanting to receive his xanax this am for MRI, ok to give. report called to lab for ICD.
pt has been sb/sr w/ frequent PVCs, vss. pt c/o pain but said he would wait until after MRI for pain medication. pt ambulated with [place] to [facility] [place] and tolerated well. pt educated on plan of care and verbalized understanding. call keen within reach.
[2025-11-02 12:56] LABS: Glucose - Point of Care 88 mg/dl (70-99)
[2025-11-02] MEDS: LIDOCAINE 4% PATCH TOPICAL (13:43)
[2025-11-02] MEDS: MIRALAX TUBE (13:43)
[2025-11-02] MEDS: ROXICODONE 5 MG PO (15:09)
--- NOTE | 2025-11-02 15:12 | RESPNOTE ---
pt returned from ICD placement, low SPO2 on 6L. placed on pt's own cpap with 8L O2, SpO2 improved to 90%.
--- NOTE | 2025-11-02 15:15 | W.PN.HOSP.TC ---
Today's Communication/Plan
-
Assessment / Plan
Assessment / Plan
General: Well Developed, Well Nourished and Comfortable; Negative Respiratory Distress or Appears in Distress
HEENT: Normocephalic and Atraumatic
Respiratory: Clear to Auscultation, on NC
Cardiac: Regular Rhythm and S1/S2
GI: Soft, Nontender, Nondistended and Normal Bowel Sounds
Musculoskeletal: No Clubbing and No Cyanosis
Neuro: Awake
Psych: Calm
Out of hospital VT/VFib arrest (I suspect that this occurred first and then he aspirated rather then the other way which was documented in the hnp)
Rosc achieved, Was intubated. Now extubated 10/30
Not a candidate for TTM as his mental status was intact moving his extremities fighting back
2d echo EF 50-55, rv dilated/reduced (cta no pa filling defect to suspect pe), pasp 41
LHC no CAD
No evidence of additional VT/Fib to suspect need for IV amio per Cards
Cardiac MRI report pending - 11/02
S/p AICD for secondary prevention - 11/02
Metoprolol restarted
Also on farxiga
Acute respiratory failure with hypoxia
CTA no pulm arterial filling defect to suspect PE
Extubated (10/30) to midflow
Wean as tolerated
IS and Acapella if able to follow
HFrEF, nyha class 3-4, in shock/NICM
on levophed, wean as tolerated
hold diuretics
resumed sglt2i per cards
hold arni/arb
Shock cardiogenic/septic
Appears resolved
Not on any pressors
Suspect bilateral pneumonia could be secondary to aspiration
Now on Augmentin, Last dose 11/03
Monitor
Chest x-ray with pneumonia
transaminitis
monitor for now, Improving
hold statin
if getting worse can check luqus/hep panel
likely related to shock though would have suspect higher
Pneumomediatinum vs ptx
ct minimal findings
xray not much change
paroxysmal afib
hold oral ac
Continue iv hep gtt
metabolic acidosis likely related to septic shock
Continue to monitor, Resolved
Improving
DVT prophylaxis
Heparin drip
Full code
Anticipated Discharge: 24 - 48 hours
Subjective/Interval History
-
Date of Service: November 02, 2025
No new complaints. No acute overnight events.
Objective Data
-
Labs:
Laboratory Results
11/02/25
03:32
WBC 6.8
Hgb 12.9 L
Hct 39.1
Plt Count 200
APTT 27.4
Sodium 137
Potassium 4.0
Chloride 106
Carbon Dioxide 26
BUN 18
Creatinine 1.1
Glucose 94
Calcium 9.1
Total Bilirubin 1.2
AST 37
ALT 61 H
Alkaline Phosphatase 81
Vital Signs:
Vital Signs
Temp Pulse Resp BP Pulse Ox
98.2 F 65 20 155/94 93
11/02/25 07:42 11/02/25 09:23 11/02/25 07:42 11/02/25 09:23 11/02/25 07:48
I&O
11/01/25 11/02/25 11/03/25
06:59 06:59 06:59
Intake Total 2097
Output Total 1675 / 1675 2224 / 2224
Balance 423 / 423 -2225 / -2225
--- NOTE | 2025-11-02 16:04 | ITS.CL.ICD ---
It Service Continuity Supervisor - ICD
Implantable Cardioverter Defibrillator
Procedure Report:
Date of Procedure: November 02, 2025.
Procedures: Dual chamber Medtronic ICD implant.
Indication: Secondary prevention ICD. He is a survivor of an [id number]-[id number] primary ventricular fibrillation cardiac arrest. He has an underlying nonischemic cardiomyopathy with improved ejection fraction. NYHA heart failure class: II for for more
than 1 year. Most recent LVEF 50-55%. Lowest LVEF 40%. QRS duration 94 ms with no bundle branch block. Known ventricular fibrillation terminated by defibrillation delivered by EMS on 10/28/2025. History of PVCs and nonsustained ventricular
tachycardia. Prior PVC ablation. No history of myocardial infarction. Life expectancy exceeds 1 year.
Performing physician: Carlos Luz MD, [facility].
Implants:
Pulse Generator: Medtronic; Model# [id number]; Serial# [id number].
Atrial Lead: Medtronic: Model# [id number]; Serial# [id number].
Right Ventricular Lead: Medtronic; Model# [id number]; Serial# [id number].
Technique: A time out was performed. A 10 mL upper extremity venogram demonstrated patent right cephalic, axillary, and subclavian veins. The procedure site was identified. The patient was anesthetized by the anesthesia service. Preoperative
cephazolin was administered. The patient was prepped and draped in the usual fashion. Local anesthetic was applied to the left prepectoral subcutaneous tissue. A 3 inch incision was made along the left deltopectoral groove. Dissection was carried to
the fascia. The left cephalic vein was easily isolated and proximal and distal control with 2-0 Vicryl suture. Using a micropuncture needle to access the cephalic vein under direct visualization a hydrophilic wire was advanced into the central
circulation. A 7 Fr introducer was placed to allow two 0.35 J wires to be advanced and a retained guidewire technique was employed. The leads were introduced with hemostatic peel away introducer sheaths. The ventricular lead was placed at the right
ventricular mid septum. The ventricular lead was secured to the pectoralis muscle and fascia with two 0-silk sutures. The atrial lead was then placed in the right atrial appendage. The atrial lead was secured to the pectoralis muscle and fascia with
two 0-silk sutures. 8 volt pacing did not capture the diaphragm from either lead. A subcutaneous pocket was created with Bovie cautery. Hemostasis was excellent. The leads were appropriately attached to the device. The pocket was irrigated with
antibiotic solution. The device and leads were placed in the pocket. The device was secured to the pectoralis muscle with 0 silk suture. The incision was closed in three layers with absorbable suture. Steri-strips and a a silver impregnated dressing
were placed. Estimated blood loss was 10 ml. There were no complications. Fluoroscopy time: 2.2 minutes and DAP 1.61 GyCM2. The device was then interrogated after skin closure.
System Analysis:
RA lead: P: 2.1 mV; Threshold: 0.75 V @ 0.4 ms; Impedance: 437 ohms.
RV lead: R: 10.1 mV; Threshold: 0.5 V @ 0.4 ms; Impedance: 456 ohms. HVB 62 ohms
Final Programming: Tachy: VT/VF:188 bpm; Wilmer: MVPR (AAIR <=> DDDR 50-130 bpm).
Conclusion: Uncomplicated dual chamber Medtronic ICD implant. The ICD system is MRI conditional.
Recommendation: Routine post ICD care.
cc: Zakia Alcala MD ([facility], [place]), Patricio Bowens MD ([facility], [facility]), Clemente Hahn MD; and Akash Robledo MD.
--- NOTE | 2025-11-02 16:29 | W.PN.UPDATE ---
Addendum entered and electronically signed by Scar Watson MD 11/02/25 17:20:
note entered on wrong patient. Please disregard.
Original Note:
Update Note
Progress Note Update
Unfortunately, increased work of breathing. Tachycardic, anxious.
BiPAP was tried and patient is intolerant-claustrophobic.
ABG with acute on chronic hypercapnic respiratory failure.
Respiratory rate in the 30s
Unfortunately, likely this patient will be heading towards intubation and mechanical ventilation.
I did discuss with her to retry BiPAP and she refused at this point.
She is cooperative and following commands
Will proceed with intubation and placed back on mechanical ventilation.
Fentanyl, Ativan as needed will be used for sedation.
Obtain ABG 30 minutes later
Family will be notified.
-
Critical care statement: A total of 32 minutes of critical care time was provided for this patient today. This includes management of unstable vital signs, evaluation of the patient at bedside, reviewing the patient's pertinent medical records
including ventilator settings, arterial blood gases, radiographs, microbiology, laboratory evaluations and discussion with primary team, critical care nursing, and respiratory therapy.
--- NOTE | 2025-11-02 17:05 | CARDSERVLU ---
Echocardiogram with Lumason completed after protocol screening completed. Allergies verified.
Patent IV site: _L AC____
IV site flushed with 0.9% NaCl pre and post administration.
Diluted bolus method utilized to enhance visualization of ventricular metz.
Total volume given: ___4_ mL
Patient tolerated all procedures well without complications.
[2025-11-02 17:08] LABS: Glucose - Point of Care 116 mg/dl (70-99)
--- NOTE | 2025-11-02 17:57 | W.PN.PUL3 ---
Today's Communication / Plan
-
Incentive spirometer
CPAP as needed
Avoid sedatives
Head of the bed elevation
Continue with hemodynamic monitoring
Wait for echocardiogram result
Assessment
-
Mr. Olmstead is a 70-year-old man with a past medical history of PVCs s/p ablation 2020, HFrEF last echo 2022 EF 45-50% with diastolic dysfunction, paroxysmal A-fib on Eliquis, gout, NORMAN, nonischemic cardiomyopathy, and acquired thrombophilia who
presented to the ER intubated after cardiac arrest. Patient has a history of PVCs, has not followed up for cardiac MRI and possible PVC ablation, cardiac arrest likely due to PVCs.
Intubated on mechanical ventilation subsequently extubated.
Treated also for aspiration pneumonia-
Pulmonary now following on the floors 11/01/2025 for hypoxemia and aspiration.

I was called back to reevaluate patient 11/02/2025.
Post ICD placement and after laying supine 4 hours for cardiac MRI patient developed hypoxemia-requiring up to 8 L supplemental oxygen. He did feel short of breath laying in the supine position.
Currently sitting upright wearing CPAP and he is able to speak in full sentences.
Requiring 6 L supplemental oxygen.
Lung exam is relatively clear
Not tachycardic.
Hemodynamically stable.
Obtain proBNP
Chest x-ray with low lung volumes: No significant acute abnormalities. No pneumothorax.
-
Could be explained by the recruitment after sedation and laying in the supine position and this obese patient. Likely hypoventilatory changes.
Alternatively mild aspiration pneumonitis.
Agree with current approach: CPAP therapy, avoidance sedative, incentive spirometry
30 to 45 degree head of the bed elevation.
Monitor for fevers
Cardiology obtain an echocardiogram: Results pending.
Will continue to follow closely
-
Acute hypoxemic respiratory postcardiac arrest.
Status post few days of intubation-extubated successfully.
CT of the chest with bilateral bibasilar infiltrates suggestive of aspiration pneumonia
Seems to be responding to antibiotics-complete course of Augmentin.
Sputum culture with Serratia and E. coli-again, he seems to be responding to current antibiotic course.
No leukocytosis/afebrile
Chest x-ray 11/01/2025: Progressive bibasilar infiltrates-suspect some component of atelectasis as well.
Oxygen decreased to 2 L up until 11/01/2025. He also was on 1 L earlier today 11/02/2025.
Arrhythmogenic cardiac arrest
Ventricular tachycardia
Ventricular fibrillation
-
Hx of PVCs with ablation 2020
Patient follows at [place] with Dr. Zakia Alcala, Dr. Patricio Bowens
Patient was supposed to follow-up with Dr. Bowens for cardiac MRI, possible repeat ablation for PVCs
Elevated troponin likely due to CPR/defibrillation, EKG is nonischemic
Low BPs required pressors, off pressors 10/30
LHC without signs of cardiac ischemic injury
Echocardiogram 10/29 LVEF 50-55%, right ventricle appears dilated with reduced function
-Cardiac MRI results pending
Status post ICD placement 11/02/2025.
HFrEF
Last echo 2022 at EF 45-50%
Last echo 11/2024 EF 56%
Echocardiogram 10/29/25 LVEF 50-55%, right ventricle appears dilated with reduced function
On spironolactone, Entresto, Jardiance, metoprolol
Continue with cardiac management
Paroxysmal A-fib
Treated with Eliquis, now on hold
Diagnosed 2 months ago, follows with Dr. Zakia Alcala
-Restart anticoagulation when clear postprocedure.
Pulmonary will continue to follow
Subjective Data
-
Date of Service:
Date of Service: November 02, 2025
Chief Complaint: Pulmonary Follow Up (S/p cardiac arrest-aspiration pneumonia and hypoxemia)
Subjective:
Patient back on oxygen therapy-currently denies any significant shortness of breath at rest.
Mild coughing without phlegm production.
Currently wearing CPAP.
Does report some reproducible chest tenderness post ICD placement.
Objective Data
Data Reviewed
Vital Signs / I&O / Oxygen:
Vital Signs
Temp Pulse Resp BP Pulse Ox
98.2 F 65 20 155/94 93
11/02/25 07:42 11/02/25 09:23 11/02/25 07:42 11/02/25 09:23 11/02/25 07:48
Intake and Output
11/01/25 11/02/25 11/03/25
06:59 06:59 06:59
Intake Total 2098 / 2098
Output Total 1675 / 1675 2225 / 2225
Balance 423 / 423 -2225 / -2225
SaO2 [A/C] 96
SaO2 93
Nasal Cannula flow liters per 2
minute
Physical Exam
General: Comfortable
HEENT: Normocephalic
Cardiovascular: S1-S2 and Other (Chest tenderness to palpation)
Respiratory: Crackles (Minimal left base) and Non-Labored Respirations
GI: Soft and Non Distended
Neurology: Awake, Alert and No Motor Deficits
Skin: Warm
Labs/Micro/Reports
Lab Data
11/02/25 03:32
11/02/25 03:32
Laboratory Results
11/02/25
03:32
APTT 27.4
Microbiology
10/28/25 17:10 Blood/Venous Blood Culture - Final
No Growth - Final Report
10/28/25 17:08 Blood/Venous Blood Culture - Final
No Growth - Final Report
10/29/25 08:25 Sputum Respiratory Culture - Final
Escherichia coli
Serratia marcescens
10/29/25 08:25 Sputum Gram Stain - Final
--- NOTE | 2025-11-02 19:02 | PTCARENOTE ---
pt is sr on the monitor, post ICD site is CDI. pt pulse ox 86% on 6LO2, notified resp and dr. sanchez. x-ray complete and echo complete. pt not on 8LO2 cpap 90%. pt resting in bed. pt educated on plan of care and pt verbalized understanding. call keen
within reach.
[2025-11-02] MEDS: ANCEF 5 IV (20:24)
[2025-11-02] MEDS: REMOVE LIDOCAINE PATCH REMOVE (20:26)
--- NOTE | 2025-11-02 22:56 | PTCARENOTE ---
Pt rec'd at beginning of shift in bed surrounded by family. Left ant chest ICD site with Aquacel in place. No bleeding or swelling noted at ICD site. Left arm in sling. IS encouraged 1250 best he can do at this time. Sinus with occ pvc's ,triplets.
[2025-11-03] VITALS (12 sets, daily range): BP systolic 106–135; BP diastolic 58–102; PULSE 70; O2SAT 94
[2025-11-03] MEDS: TYLENOL 1000 MG PO ×3 (02:11→17:03)
[2025-11-03] MEDS: ANCEF 5 IV (04:30)
[2025-11-03 05:08] LABS: Hematocrit 37.1 % (39.0-52.0); Hemoglobin 12.4 g/dL (13.0-18.0); Mean Corp Hgb Conc. 33.4 g/dL (33.0-37.0); Mean Corpuscular Volume 87.5 fL (80.0-94.0); Platelet Count 187 10^3/uL (130-400); Red Cell Dist. Width 13.6 % (11.5-14.5)
[2025-11-03 05:25] LABS: Blood Urea Nitrogen 20 mg/dl (9-20); Calcium 9.2 mg/dl (8.4-10.2); Carbon Dioxide 25 mmol/L (22-30); Chloride 103 mmol/L (98-107); Estimated Creatinine Clearance 97 ml/min; Glucose 103 mg/dl (70-99); Potassium 4.0 mmol/L (3.5-5.1); Sodium 135 mmol/L (135-145); eGFR > 60.00
[2025-11-03 07:48] LABS: Glucose - Point of Care 149 mg/dl (70-99)
[2025-11-03] MEDS: TYLENOL PO (08:44)
[2025-11-03] MEDS: MUCINEX 600 MG PO ×2 (08:45→20:04)
[2025-11-03] MEDS: MIRALAX 17 GRAMS TUBE (08:45)
[2025-11-03] MEDS: FARXIGA 10 MG PO (08:45)
[2025-11-03] MEDS: TOPROL XL 25 MG PO ×2 (08:45→20:04)
[2025-11-03] MEDS: AUGMENTIN 875 MG/125 MG 1 TABLET PO (08:55)
[2025-11-03] MEDS: LIDOCAINE 4% PATCH 1 PATCH TOPICAL (08:55)
--- NOTE | 2025-11-03 09:34 | W.PN.CD ---
Addendum entered and electronically signed by Clemente Hahn MD 11/05/25 14:23:
Response to CDI query: Lasix administered for acute on chronic HFrEF.
Original Note:
Today's Communication / Plan
-
40 IV Lasix x1 as he is still requiring supplemental O2 with crackles on exam
Resume Entresto and Spironolactone
ICD site looks good. No effusion on TTE.
Impression / Plan
-
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
following an ybr-vh-hlgktwyi cardiac arrest.
Primary Kier Pleater: Dr. Zakia Alcala, Dr. Bowens ([facility], )
Cardiac arrest
- Initial rhythm was VF requiring defibrillation and epinephrine to achieve ROSC. Suspect arrhythmogenic given increasing NSVT as outpatient. C with no obstructive CAD. CTA C/A/P with no acute findings.
- Cardiac MRI with no infiltrative disease
- S/p ICD yesterday with no effusion on TTE
- Continue home Metoprolol 25 BID. Uptitrate as tolerated once other GDMT is back on board.
Dilated cardiomyopathy (LVEF 50%)
- Crackles on exam today and still requiring 2L NC
- cMRI this admission with no infiltrative disease
- GDMT as tolerated:
-RASSi: Resume Entresto
-SGLT2 inhibitor: Jardiance 10 mg daily, auto substituted for Farxiga during hospitalization
-Aldosterone agonist: Resume Spironolactone tomorrow
-Beta eddie: Metoprolol succinate 25 BID resumed
-Isosorbide/Hydralazine:�Not currently indicated
-ICD placed this admission for OOH arrest
- Give 40 IV Lasix x1
- Trend daily weight, I/O
Abnormal troponin, acute nonischemic myocardial injury in the setting of defibrillation and CPR
- Peak troponin 1.170
- EKG appears nonischemic
- Cath 10/29/25: Right dominant circulation with no occlusive coronary artery disease.
- Severely elevated filling pressures (LVEDP = 25 mmHg at 127.9 kg) on a PEEP of 5 cmH2O - during RHC
PVCs, prior ablation in 2020, most recent burden 16% despite being on maximally tolerated beta-eddie
Subjective: Feels well. Still requiring 2L NC
Telemetry: Multifocal PVCs
Physical Exam
Vital Signs/Labs
Vital Signs
Temp Pulse Resp BP Pulse Ox
98.3 F 68 17 132/80 96
11/03/25 07:07 11/03/25 04:24 11/03/25 07:07 11/03/25 04:24 11/03/25 07:07
11/02/25 11/03/25 11/04/25
06:59 06:59 06:59
Actual Weight 284 lb 6.341 oz
11/03/25 04:40
11/03/25 04:41
PT 14.9 Sec (11.4-14.6) H 10/28/25 22:05
INR 1.15 10/28/25 22:05
APTT 27.4 Sec (23.4-35.0) 11/02/25 03:32
Magnesium 1.8 mg/dl (1.6-2.3) 10/31/25 05:53
Triglycerides Cancelled 11/02/25 16:32
LDL Cholesterol, Calc 55 mg/dl 10/29/25 04:07
VLDL Cholesterol, Calc 31 mg/dl (0-30) H 10/29/25 04:07
HDL Cholesterol 51 mg/dl 10/29/25 04:07
10/28/25
15:33
Ltj-D-Iecphtlguxa Pept 44.2
Physical Exam
Constitutional: No acute distress and Comfortable
Cardiovascular: Rhythm & rate is regular, Pedal edema is absent, S1S2 is normal and Murmur/rub/gallop absent
Respiratory: Respiratory effort normal and Crackles Present
Neuro/Psych: AO x 3
Other: Cardiac Device Site (ICD site clean, dry, well-approximated, no swelling/erythema)
Data Reviewed
-
Date of Service: November 03, 2025
Medical Decision Making: Reviewed Test Results, Test Interpretation and Review of Case with other Provider
EKG: Tracing Personally Visualized and interpreted
Echo: Report Reviewed by me
X-Ray/CT/US/MRI/NUC/PET: Image Personally Visualized and interpreted
Labs: Labs Reviewed by me
[2025-11-03] MEDS: ENTRESTO 24 MG/26 MG 1 TAB PO ×2 (10:02→22:12)
[2025-11-03] MEDS: LASIX 40 MG IV (10:02)
--- NOTE | 2025-11-03 12:22 | W.PN.PUL3 ---
Today's Communication / Plan
-
Incentive spirometry
Increase activity as able
Diuretics given x 1
Wean down FiO2
Nocturnal CPAP and with naps
Aspiration precautions
Will follow
Assessment
-
Mr. Olmstead is a 70-year-old man with a past medical history of PVCs s/p ablation 2020, HFrEF last echo 2022 EF 45-50% with diastolic dysfunction, paroxysmal A-fib on Eliquis, gout, NORMAN, nonischemic cardiomyopathy, and acquired thrombophilia who
presented to the ER intubated after cardiac arrest. Patient has a history of PVCs, has not followed up for cardiac MRI and possible PVC ablation, cardiac arrest likely due to PVCs.
Intubated on mechanical ventilation subsequently extubated.
Treated also for aspiration pneumonia-
Pulmonary now following on the floors 11/01/2025 for hypoxemia and aspiration.

I was called back to reevaluate patient 11/02/2025.
Post ICD placement and after laying supine 4 hours for cardiac MRI patient developed hypoxemia-requiring up to 8 L supplemental oxygen. He did feel short of breath laying in the supine position.
CT chest on wmemnffuk95/21/2025: Significant bilateral basilar infiltrate suggestive of aspiration. Still recovering from it-completed antibiotic course.
-
Chest x-ray with low lung volumes: No significant acute abnormalities. No pneumothorax.
Patient clinically feels better 11/03/2025
Remains on supplemental oxygen 6 L.
Agree with 1 dose of diuretics-ordered by cardiology.
Increase mobility as able
Incentive spirometer was encouraged
Continue to wear CPAP with naps and bedtime.
Requiring 6 L supplemental oxygen--continue to wean down as tolerated.
-
Hypoxemia could be explained by the recruitment after sedation and laying in the supine position and this obese patient. Likely hypoventilatory changes.
Alternatively mild aspiration pneumonitis-less likely.
30 to 45 degree head of the bed elevation.
Monitor for fevers
Echocardiogram 11/02/2025: Normal LVEF. No pericardial effusion.
Will follow.
-
Acute hypoxemic respiratory postcardiac arrest.
Status post few days of intubation-extubated successfully.
CT of the chest with bilateral bibasilar infiltrates suggestive of aspiration pneumonia
Seems to be responding to antibiotics-complete course of Augmentin.
Sputum culture with Serratia and E. coli-again, he seems to be responding to current antibiotic course.
No leukocytosis/afebrile
Chest x-ray 11/01/2025: Progressive bibasilar infiltrates-suspect some component of atelectasis as well.
Oxygen decreased to 2 L up until 11/01/2025. He also was on 1 L earlier today 11/02/2025.
Arrhythmogenic cardiac arrest
Ventricular tachycardia
Ventricular fibrillation
-
Hx of PVCs with ablation 2020
Patient follows at [place] with Dr. Zakia Alcala, Dr. Patricio Bowens
Patient was supposed to follow-up with Dr. Bowens for cardiac MRI, possible repeat ablation for PVCs
LHC without signs of cardiac ischemic injury
Echocardiogram 10/29 LVEF 50-55%, right ventricle appears dilated with reduced function
Cardiac MRI -LV systolic function is decreased with an estimated ejection fraction of 43%. There is global hypokinesis without regional wall motion abnormality.
No delayed hyperenhancement suggestive of infiltrative cardiomyopathy.
Status post ICD placement 11/02/2025.
HFrEF
Last echo 2022 at EF 45-50%
Last echo 11/2024 EF 56%
Echocardiogram 10/29/25 LVEF 50-55%, right ventricle appears dilated with reduced function
On spironolactone, Entresto, Jardiance, metoprolol
1 dose of Lasix given-11/03/2025.
Continue with cardiac management
Paroxysmal A-fib
Treated with Eliquis, now on hold
Diagnosed 2 months ago, follows with Dr. Zakia Alcala
-Restart anticoagulation when clear postprocedure.
Pulmonary will continue to follow
Subjective Data
-
Date of Service:
Date of Service: November 03, 2025
Chief Complaint: Pulmonary Follow Up (S/p cardiac arrest-aspiration pneumonia and hypoxemia)
Subjective:
He denies any particular pulmonary complaints
Denies increased coughing or wheezing.
Review of Systems
General: Fever
Cardiopulmonary: Dyspnea (n)
GI: Abdominal Pain (n)
Objective Data
Data Reviewed
Vital Signs / I&O / Oxygen:
Vital Signs
Temp Pulse Resp BP Pulse Ox
98.2 F 68 20 132/80 92
11/03/25 11:14 11/03/25 04:24 11/03/25 11:14 11/03/25 04:24 11/03/25 11:14
Intake and Output
11/02/25 11/03/25 11/04/25
06:59 06:59 06:59
Intake Total 480 / 480
Output Total 2225 / 2225 950 / 950 1200 / 1200
Balance -2225 / -2225 -470 / -470 -1200 / -1200
SaO2 [A/C] 96
SaO2 92
Nasal Cannula flow liters per 2
minute
Physical Exam
General: Comfortable
HEENT: Normocephalic
Cardiovascular: S1-S2 and Other (Chest tenderness to palpation)
Respiratory: Crackles (Minimal left base) and Non-Labored Respirations
GI: Soft and Non Distended
Neurology: Awake, Alert and No Motor Deficits
Skin: Warm
Labs/Micro/Reports
Lab Data
11/03/25 04:40
11/03/25 04:41
Microbiology
10/28/25 17:10 Blood/Venous Blood Culture - Final
No Growth - Final Report
10/28/25 17:08 Blood/Venous Blood Culture - Final
No Growth - Final Report
10/29/25 08:25 Sputum Respiratory Culture - Final
Escherichia coli
Serratia marcescens
10/29/25 08:25 Sputum Gram Stain - Final
[2025-11-03 12:26] LABS: Glucose - Point of Care 121 mg/dl (70-99)
[2025-11-03] MEDS: TUMS CHEWABLE TABLET 400 MG PO (13:41)
--- NOTE | 2025-11-03 14:40 | W.PN.HOSP.TC ---
Today's Communication/Plan
-
Assessment / Plan
Assessment / Plan
General: Well Developed, Well Nourished and Comfortable; Negative Respiratory Distress or Appears in Distress
HEENT: Normocephalic and Atraumatic
Respiratory: Clear to Auscultation, on NC
Cardiac: Regular Rhythm and S1/S2
GI: Soft, Nontender, Nondistended and Normal Bowel Sounds
Musculoskeletal: No Clubbing and No Cyanosis
Neuro: Awake
Psych: Calm
Out of hospital VT/VFib arrest (I suspect that this occurred first and then he aspirated rather then the other way which was documented in the hnp)
Rosc achieved, Was intubated. Now extubated 10/30
Not a candidate for TTM as his mental status was intact moving his extremities fighting back
2d echo EF 50-55, rv dilated/reduced (cta no pa filling defect to suspect pe), pasp 41
LHC no CAD
No evidence of additional VT/Fib to suspect need for IV amio per Cards
Cardiac MRI report pending - 11/02
S/p AICD for secondary prevention - 11/02
Metoprolol restarted
Also on farxiga
Cards ordered aldactone and entreso
-May need to hold one of the two due to dizzienss.
Acute respiratory failure with hypoxia
CTA no pulm arterial filling defect to suspect PE
Extubated (10/30) to midflow
Wean as tolerated
IS and Acapella if able to follow
HFrEF, nyha class 3-4, in shock/NICM
on levophed, wean as tolerated
hold diuretics
resumed sglt2i per cards
hold arni/arb
Shock cardiogenic/septic
Appears resolved
Not on any pressors
Suspect bilateral pneumonia could be secondary to aspiration
Now on Augmentin, Last dose 11/03
Monitor
Chest x-ray with pneumonia
transaminitis
monitor for now, Improving
hold statin
if getting worse can check luqus/hep panel
likely related to shock though would have suspect higher
Pneumomediatinum vs ptx
ct minimal findings
xray not much change
paroxysmal afib
hold oral ac
Continue iv hep gtt
metabolic acidosis likely related to septic shock
Continue to monitor, Resolved
Improving
DVT prophylaxis
Heparin drip
Full code
Anticipated Discharge: > 48 hours
Subjective/Interval History
-
Date of Service: November 03, 2025
Objective Data
-
Labs:
Laboratory Results
11/03/25 11/03/25
04:40 04:41
WBC 9.0
Hgb 12.4 L
Hct 37.1 L
Plt Count 187
Sodium 135
Potassium 4.0
Chloride 103
Carbon Dioxide 25
BUN 20
Creatinine 1.0
Glucose 103 H
Calcium 9.2
Vital Signs:
Vital Signs
Temp Pulse Resp BP Pulse Ox
98.2 F 82 20 135/102 92
11/03/25 11:14 11/03/25 12:00 11/03/25 11:14 11/03/25 11:37 11/03/25 11:14
I&O
11/02/25 11/03/25 11/04/25
06:59 06:59 06:59
Intake Total 480 / 480
Output Total 2225 / 2225 950 / 950 1200 / 1200
Balance -2225 / -2225 -470 / -470 -1200 / -1200
[2025-11-03] MEDS: ROXICODONE 5 MG PO (14:46)
[2025-11-03] MEDS: DILAUDID 0.5 MG IV (17:04)
[2025-11-03 17:14] LABS: Glucose - Point of Care 119 mg/dl (70-99)
[2025-11-03 17:14] LABS: Glucose - Point of Care 111 mg/dl (70-99)
[2025-11-03 18:16] LABS: Blood Urea Nitrogen 24 mg/dl (9-20); Calcium 9.4 mg/dl (8.4-10.2); Carbon Dioxide 29 mmol/L (22-30); Chloride 102 mmol/L (98-107); Estimated Creatinine Clearance 88 ml/min; Glucose 111 mg/dl (70-99); Magnesium 2.0 mg/dl (1.6-2.3); Potassium 3.7 mmol/L (3.5-5.1); Sodium 137 mmol/L (135-145); eGFR > 60.00
--- NOTE | 2025-11-03 18:36 | PTCARENOTE ---
Assumed care of the pt @ 0700. Pt is AAOx3 SR with frequent PVC's on the monitor and rare paced beats VSS. Pt c/o mid sternal pain EKG done Dr. Hahn aware. pain meds given see JAN. Dr Reaves was notified as well and ordered bmp and mag level for
ectopy. Pt admits pain has improved.
[2025-11-03] MEDS: REMOVE LIDOCAINE PATCH 1 PATCH REMOVE (20:05)
--- NOTE | 2025-11-03 21:01 | PTCARENOTE ---
rec'd in bed at change of shift. Pt with c/o discomfort from rib fractures but doesn't require pain meds at this time. Pt encouraged to use IS Q1hr
W/A and take deep breaths while in bed. SCD's placed. Pt encouraged to gett oob with all meals tomorrow. Sinus with Freq PVC's on telemetry with rare A pacing noted.
[2025-11-03 23:01] LABS: Glucose - Point of Care 155 mg/dl (70-99)
[2025-11-04] VITALS (8 sets, daily range): BP systolic 102–129; BP diastolic 70–89; PULSE 85–92; O2SAT 95; BMI 34.7
[2025-11-04] MEDS: TYLENOL 1000 MG PO ×4 (01:00→17:38)
--- NOTE | 2025-11-04 05:45 | PTCARENOTE ---
Pt with c/o rib pain this morning, repositioned in bed. Tylenol given. sat 95% on 2 lit via pt's own cpap
[2025-11-04] MEDS: ENTRESTO 24 MG/26 MG 1 TAB PO ×2 (09:07→19:22)
[2025-11-04] MEDS: FARXIGA 10 MG PO (09:08)
[2025-11-04] MEDS: LIDOCAINE 4% PATCH 1 PATCH TOPICAL (09:08)
[2025-11-04] MEDS: FLUSH (NSS) 1 FLUSH IV (09:09)
[2025-11-04] MEDS: TOPROL XL 25 MG PO ×2 (09:09→19:23)
[2025-11-04] MEDS: MUCINEX 600 MG PO ×2 (09:09→19:23)
[2025-11-04] MEDS: MIRALAX 17 GRAMS TUBE (09:09)
[2025-11-04 09:13] LABS: Glucose - Point of Care 141 mg/dl (70-99)
--- NOTE | 2025-11-04 10:01 | PTCARENOTE ---
Patient oob sitting in the chair for breakfast. Was able to ambulate with the rolling walker to the bathroom and move his bowels but requires moderate amount of assistance with ADL's. Coarse rhonci auscultated R > L with nonproductive cough,
encouraged to use spirometer and cough/expectorate mucous, which he is hesitant to do due to chest discomfort.
[2025-11-04 10:59] LABS: Blood Urea Nitrogen 23 mg/dl (9-20); Calcium 9.2 mg/dl (8.4-10.2); Carbon Dioxide 25 mmol/L (22-30); Chloride 102 mmol/L (98-107); Estimated Creatinine Clearance 95 ml/min; Glucose 185 mg/dl (70-99); Magnesium 1.8 mg/dl (1.6-2.3); Potassium 3.7 mmol/L (3.5-5.1); Sodium 134 mmol/L (135-145); eGFR > 60.00
--- NOTE | 2025-11-04 11:40 | W.PN.PUL3 ---
Today's Communication / Plan
-
Continue with current care.
Incentive spirometry encouraged
Increase mobility as able
Wean off oxygen as able. From 6 L down to 2 L. Think that we will be able to wean it off completely prior to discharge.
Continue nocturnal CPAP therapy and with naps
Continue cardiac management
Will follow
Assessment
-
Mr. Olmstead is a 70-year-old man with a past medical history of PVCs s/p ablation 2020, HFrEF last echo 2022 EF 45-50% with diastolic dysfunction, paroxysmal A-fib on Eliquis, gout, NORMAN, nonischemic cardiomyopathy, and acquired thrombophilia who
presented to the ER intubated after cardiac arrest. Patient has a history of PVCs, has not followed up for cardiac MRI and possible PVC ablation, cardiac arrest likely due to PVCs.
Intubated on mechanical ventilation subsequently extubated.
Treated also for aspiration pneumonia-
Pulmonary now following on the floors 11/01/2025 for hypoxemia and aspiration.

I was called back to reevaluate patient 11/02/2025.
Post ICD placement and after laying supine 4 hours for cardiac MRI patient developed hypoxemia-requiring up to 8 L supplemental oxygen. He did feel short of breath laying in the supine position.
CT chest on /21/2025: Significant bilateral basilar infiltrate suggestive of aspiration. Still recovering from it-completed antibiotic course.
-
Hypoxemia could be explained by the recruitment after sedation and laying in the supine position and this obese patient. Likely hypoventilatory changes, also recovering aspiration pneumonitis contributing-CAT scan on admission shows significant
bibasilar infiltrates.
Perhaps some degree of volume overload as well.
-
Clinically improving. 11/04/2025
Chest x-ray with low lung volumes: No significant acute abnormalities. No pneumothorax.
Clinically feels better.
Oxygenation improved down to 2 L. (11/04/2025)
Received 1 dose of IV diuretics 11/03/2025 with good response.
Increase mobility as able
Incentive spirometer was encouraged
Continue to wear CPAP with naps and bedtime---history of obstructive sleep apnea
-
Alternatively mild aspiration pneumonitis-less likely.
He completed full course of antibiotics in the ICU.
30 to 45 degree head of the bed elevation.
Monitor for fevers-none.
Echocardiogram 11/02/2025: Normal LVEF. No pericardial effusion.
-
CT of the chest with bilateral bibasilar infiltrates suggestive of aspiration pneumonia
Status post full course of antibiotics.
Sputum culture with Serratia and E. coli-again, he seems to be responding to current antibiotic course.
No leukocytosis/afebrile
Chest x-ray 11/01/2025: Progressive bibasilar infiltrates-suspect some component of atelectasis as well.
-
Status post arrhythmogenic cardiac arrest
Ventricular tachycardia
Ventricular fibrillation
-
Hx of PVCs with ablation 2020
Patient follows at [place] with Dr. Zakia Alcala, Dr. Patricio Bowens
Patient was supposed to follow-up with Dr. Bowens for cardiac MRI, possible repeat ablation for PVCs
LHC without signs of cardiac ischemic injury
Echocardiogram 10/29 LVEF 50-55%, right ventricle appears dilated with reduced function
Cardiac MRI -LV systolic function is decreased with an estimated ejection fraction of 43%. There is global hypokinesis without regional wall motion abnormality.
No delayed hyperenhancement suggestive of infiltrative cardiomyopathy.
Status post ICD placement 11/02/2025.
HFrEF
Last echo 2022 at EF 45-50%
Last echo 11/2024 EF 56%
Echocardiogram 10/29/25 LVEF 50-55%, right ventricle appears dilated with reduced function
On spironolactone, Entresto, Jardiance, metoprolol
1 dose of Lasix given-11/03/2025.
Continue with cardiac management
Paroxysmal A-fib
Treated with Eliquis, now on hold
Diagnosed 2 months ago, follows with Dr. Zakia Alcala
Anticoagulation per cardiology.
-
Pulmonary will continue to follow briefly.
-
Outpatient follow-up with Dr. Lofton after discharge for obstructive sleep apnea.
Can consider repeating CAT scan to document resolution of bilateral infiltrates.
Subjective Data
-
Date of Service:
Date of Service: November 04, 2025
Chief Complaint: Pulmonary Follow Up (S/p cardiac arrest-aspiration pneumonia and hypoxemia)
Subjective:
Patient feels better
Denies significant phlegm production
Denies significant chest discomfort
Denies shortness of breath at rest
Objective Data
Data Reviewed
Vital Signs / I&O / Oxygen:
Vital Signs
Temp Pulse Resp BP Pulse Ox
98.2 F 65 22 102/71 94
11/04/25 07:34 11/04/25 09:07 11/04/25 07:34 11/04/25 09:07 11/04/25 07:34
Intake and Output
11/03/25 11/04/25 11/05/25
06:59 06:59 06:59
Intake Total 480 / 480 150 / 150 480 / 480
Output Total 950 / 950 2250 / 2250
Balance -470 / -470 -2100 / -2100 480 / 480
SaO2 [A/C] 96
SaO2 94
Nasal Cannula flow liters per 2
minute
Physical Exam
General: Comfortable
HEENT: Normocephalic
Cardiovascular: S1-S2 and Other (Chest tenderness to palpation)
Respiratory: Crackles (Minimal left base) and Non-Labored Respirations
GI: Soft and Non Distended
Neurology: Awake, Alert and No Motor Deficits
Skin: Warm
Labs/Micro/Reports
Lab Data
11/03/25 04:40
11/04/25 10:32
Microbiology
10/28/25 17:10 Blood/Venous Blood Culture - Final
No Growth - Final Report
10/28/25 17:08 Blood/Venous Blood Culture - Final
No Growth - Final Report
10/29/25 08:25 Sputum Respiratory Culture - Final
Escherichia coli
Serratia marcescens
10/29/25 08:25 Sputum Gram Stain - Final
[2025-11-04 12:11] LABS: Glucose - Point of Care 98 mg/dl (70-99)
--- NOTE | 2025-11-04 13:30 | W.PN.CD ---
Today's Communication / Plan
-
Uptitrate GDMT as tolerated
Impression / Plan
-
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
following an maa-hw-agwzojqi cardiac arrest.
Primary Panel Machine Operator: Dr. Zakia Alcala, Dr. Bowens ([facility], [facility])
Cardiac arrest
- Initial rhythm was VF requiring defibrillation and epinephrine to achieve ROSC. Suspect arrhythmogenic given increasing NSVT as outpatient. [facility] with no obstructive CAD. CTA C/A/P with no acute findings.
- Cardiac MRI with no infiltrative disease
- S/p ICD 11/02 with no effusion on TTE
- Continue home Metoprolol 25 BID. Uptitrate as tolerated once other GDMT is back on board.
Dilated cardiomyopathy (LVEF 50%)
- cMRI this admission with no infiltrative disease
- GDMT as tolerated:
-RASSi: Entresto resumed
-SGLT2 inhibitor: Jardiance 10 mg daily, auto substituted for Farxiga during hospitalization
-Aldosterone agonist: Spironolactone still on hold for dizziness and borderline BPs; resume as tolerated
-Beta eddie: Metoprolol succinate 25 BID resumed
-Isosorbide/Hydralazine:�Not currently indicated
-ICD placed this admission for OOH arrest
- Trend daily weight, I/O
Hypoxic respiratory failure
- Ongoing 2 L supplemental O2 requirement
- Suspect multifactorial due to atelectasis, hypoventilation, and possible aspiration pneumonitis. Possible volume overload as well. S/p IV Lasix on 11/03 with no significant improvement.
- Pulmonary following
Abnormal troponin, acute nonischemic myocardial injury in the setting of defibrillation and CPR
- Peak troponin 1.170
- EKG appears nonischemic
- Cath 10/29/25: Right dominant circulation with no occlusive coronary artery disease.
- Severely elevated filling pressures (LVEDP = 25 mmHg at 127.9 kg) on a PEEP of 5 cmH2O - during RHC
PVCs, prior ablation in 2020, most recent burden 16% despite being on maximally tolerated beta-eddie
Subjective: Lightheaded/dizzy yesterday which has now resolved
Telemetry: Multifocal PVCs
Physical Exam
Vital Signs/Labs
Vital Signs
Temp Pulse Resp BP Pulse Ox
97.9 F 72 20 124/74 96
11/04/25 11:39 11/04/25 11:42 11/04/25 11:39 11/04/25 11:42 11/04/25 11:44
11/03/25 11/04/25 11/05/25
06:59 06:59 06:59
Actual Weight 277 lb 8.992 oz
11/03/25 04:40
11/04/25 10:32
PT 14.9 Sec (11.4-14.6) H 10/28/25 22:05
INR 1.15 10/28/25 22:05
APTT 27.4 Sec (23.4-35.0) 11/02/25 03:32
Magnesium 1.8 mg/dl (1.6-2.3) 11/04/25 10:32
Triglycerides Cancelled 11/02/25 16:32
LDL Cholesterol, Calc 55 mg/dl 10/29/25 04:07
VLDL Cholesterol, Calc 31 mg/dl (0-30) H 10/29/25 04:07
HDL Cholesterol 51 mg/dl 10/29/25 04:07
10/28/25
15:33
Nyw-R-Jvxqfhuerer Pept 44.2
Physical Exam
Constitutional: No acute distress and Comfortable
Cardiovascular: Pedal edema is absent, Rhythm/rate is irregular, S1S2 is normal and Murmur/rub/gallop absent
Respiratory: Respiratory effort normal and Crackles Present
Neuro/Psych: AO x 3
Data Reviewed
-
Date of Service: November 04, 2025
Medical Decision Making: Reviewed Test Results, Test Interpretation and Review of Case with other Provider
EKG: Tracing Personally Visualized and interpreted
Echo: Report Reviewed by me
X-Ray/CT/US/MRI/NUC/PET: Image Personally Visualized and interpreted
Labs: Labs Reviewed by me
--- NOTE | 2025-11-04 14:49 | W.PN.HOSP.TC ---
Addendum entered and electronically signed by Eran Reaves MD 11/06/25 17:02:
Sepsis due to aspiration pneumonia with organ dysfunction of Acute Hypoxic Respiratory Failure
Transaminitis only
Original Note:
Today's Communication/Plan
-
Assessment / Plan
Assessment / Plan
General: Well Developed, Well Nourished and Comfortable; Negative Respiratory Distress or Appears in Distress
HEENT: Normocephalic and Atraumatic
Respiratory: Clear to Auscultation, on NC
Cardiac: Regular Rhythm and S1/S2
GI: Soft, Nontender, Nondistended and Normal Bowel Sounds
Musculoskeletal: No Clubbing and No Cyanosis
Neuro: Awake
Psych: Calm
Out of hospital VT/VFib arrest (I suspect that this occurred first and then he aspirated rather then the other way which was documented in the hnp)
Rosc achieved, Was intubated. Now extubated 10/30
Not a candidate for TTM as his mental status was intact moving his extremities fighting back
2d echo EF 50-55, rv dilated/reduced (cta no pa filling defect to suspect pe), pasp 41
C no CAD
No evidence of additional VT/Fib to suspect need for IV amio per Cards
Cardiac MRI report pending - 11/02
S/p AICD for secondary prevention - 11/02
Metoprolol restarted
Also on farxiga
Cards ordered aldactone and entreso
-Aldactone on hold due to dizziness
Acute respiratory failure with hypoxia
CTA no pulm arterial filling defect to suspect PE
Extubated (10/30) to midflow
Wean as tolerated
IS and Acapella if able to follow
HFrEF, nyha class 3-4, in shock/NICM
on levophed, wean as tolerated
hold diuretics
resumed sglt2i per cards
hold arni/arb
Shock cardiogenic/septic
Appears resolved
Not on any pressors
Suspect bilateral pneumonia could be secondary to aspiration
Now on Augmentin, Last dose 11/03
Monitor
Chest x-ray with pneumonia
transaminitis
monitor for now, Improving
hold statin
if getting worse can check luqus/hep panel
likely related to shock though would have suspect higher
Pneumomediastinum vs ptx
ct minimal findings
xray not much change
paroxysmal afib
hold oral ac
Continue iv hep gtt
metabolic acidosis likely related to septic shock
Continue to monitor, Resolved
Improving
DVT prophylaxis
Heparin drip
Full code
PT rec ARU
Physiatry consult
Anticipated Discharge: 24 - 48 hours
Subjective/Interval History
-
Date of Service: November 04, 2025
seen and examiend. no new complaints. no acute ovenrigh events
Objective Data
-
Labs:
Laboratory Results
11/04/25
10:32
Sodium 134 L
Potassium 3.7
Chloride 102
Carbon Dioxide 25
BUN 23 H
Creatinine 1.0
Glucose 185 H
Calcium 9.2
Vital Signs:
Vital Signs
Temp Pulse Resp BP Pulse Ox
98.2 F 72 20 124/74 97
11/04/25 14:43 11/04/25 11:42 11/04/25 14:43 11/04/25 11:42 11/04/25 14:43
I&O
11/03/25 11/04/25 11/05/25
06:59 06:59 06:59
Intake Total 480 / 480 150 / 150 480 / 480
Output Total 950 / 950 2250 / 2250
Balance -470 / -470 -2100 / -2100 480 / 480
[2025-11-04] MEDS: NEURONTIN 200 MG PO (15:49)
[2025-11-04 16:37] LABS: Glucose - Point of Care 101 mg/dl (70-99)
--- NOTE | 2025-11-04 17:40 | PTCARENOTE ---
Patient complained of a burning sensation in his left anterior thigh. Stated it felt like he was burnt with 'acid', rating the pain 8/10. Area not reddened or warm, DP pulse is palpable. TT to Dr. Reaves, patient given neurontin PO as ordered and
sent for U/S of LLE. Upon return from ultrasound he now says the pain has dissipated.
[2025-11-04] MEDS: REMOVE LIDOCAINE PATCH 1 PATCH REMOVE (19:23)
[2025-11-04] MEDS: TESSALON PERLES 100 MG PO (20:14)
[2025-11-04 22:14] LABS: Glucose - Point of Care 155 mg/dl (70-99)
[2025-11-04] MEDS: ROXICODONE 5 MG PO (23:39)
[2025-11-05] VITALS (8 sets, daily range): BP systolic 103–140; BP diastolic 63–82; BMI 34.6
--- NOTE | 2025-11-05 00:18 | PTCARENOTE ---
Pt. rec'd at change of shift AAOx3, VSS, NSR with PVC's and some very occasional A & V pacing. B/L rhonchi present throughout both lungs and moist cough present, RA pulse ox 90%, some BARBOSA assessed. 2L NC placed with pulse ox increasing to 95-96%,
Tessalon pearls ordered by hospitalist FRONT LINE LEADER and given. Medicated with oxycodone for sternal discomfort, will monitor for results. Pt. resting quietly at this time.
[2025-11-05] MEDS: TYLENOL PO (01:00)
[2025-11-05] MEDS: TYLENOL 1000 MG PO ×3 (03:24→17:31)
[2025-11-05 04:22] LABS: Hematocrit 39.1 % (39.0-52.0); Hemoglobin 13.0 g/dL (13.0-18.0); Mean Corp Hgb Conc. 33.2 g/dL (33.0-37.0); Mean Corpuscular Volume 88.1 fL (80.0-94.0); Platelet Count 202 10^3/uL (130-400); Red Cell Dist. Width 13.8 % (11.5-14.5)
[2025-11-05 04:30] LABS: Blood Urea Nitrogen 24 mg/dl (9-20); Calcium 9.2 mg/dl (8.4-10.2); Carbon Dioxide 26 mmol/L (22-30); Chloride 104 mmol/L (98-107); Estimated Creatinine Clearance 87 ml/min; Glucose 104 mg/dl (70-99); Potassium 4.1 mmol/L (3.5-5.1); Sodium 136 mmol/L (135-145); eGFR > 60.00
[2025-11-05 07:34] LABS: Glucose - Point of Care 121 mg/dl (70-99)
[2025-11-05] MEDS: ENTRESTO 24 MG/26 MG 1 TAB PO ×2 (08:49→20:22)
[2025-11-05] MEDS: FARXIGA 10 MG PO (08:50)
[2025-11-05] MEDS: LIDOCAINE 4% PATCH 1 PATCH TOPICAL (08:50)
[2025-11-05] MEDS: MUCINEX 600 MG PO ×2 (08:50→20:22)
[2025-11-05] MEDS: TOPROL XL 25 MG PO ×2 (08:50→20:22)
[2025-11-05] MEDS: MIRALAX 17 GRAMS TUBE (08:51)
[2025-11-05] MEDS: FLUSH (NSS) 1 FLUSH IV (08:51)
--- NOTE | 2025-11-05 08:51 | W.PN.CD ---
Addendum entered and electronically signed by Clemente Hahn MD 11/05/25 09:52:
I reviewed and agree with the note by LYDIA Lew and it accurately reflects our care.
I saw and evaluated the patient, and I provided the substantive portion of the medical decision making. My assessment and plan is below:
70-year-old man with dilated nonischemic cardiomyopathy (thought to be due to frequent PVCs s/p ablation in 2020), heart failure with improved ejection fraction (41% -> 60%), paroxysmal atrial fibrillation, and NORMAN/obesity who presents following an
zzd-rn-gllhnslo cardiac arrest, now s/p ICD. He is complaining of left thigh numbness. No CV complaints.
Physical exam: RRR, no murmurs, decreased breath sounds at bilateral bases, no lower extremity edema
OOH cardiac arrest: Suspect arrhythmogenic. Continue beta-eddie (uptitration limited by low BPs). S/p ICD.
Dilated CM: LVEF 50%. Continue home Entresto, SGLT2 inhibitor, metoprolol. Resume spironolactone today. Lasix as needed for weight gain.
PAF: Resume Eliquis.
He is stable for discharge from a CV standpoint. Cardiology will sign off at this time. Please call with any additional questions or concerns.
I will reach out to his primary molded parts inspector to arrange follow-up.
Addendum entered and electronically signed by LYDIA Lew 11/05/25 09:10:
Patient also with PAF history- resume Eliquis.
Original Note:
Today's Communication / Plan
-
-resume spironolactone and monitor
-continue metoprolol, Entresto, SGLT2I
Impression / Plan
-
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
following an iqm-tk-knmtpxfj cardiac arrest.
Primary Checking Department Supervisor: Dr. Zakia Alcala, Dr. Bowens ([facility], )
Cardiac arrest
- Initial rhythm was VF requiring defibrillation and epinephrine to achieve ROSC. Suspect arrhythmogenic given increasing NSVT as outpatient. [facility] with no obstructive CAD. CTA C/A/P with no acute findings.
- Cardiac MRI with no infiltrative disease
- S/p ICD 11/02 with no effusion on TTE- left chest site looks to be well-healing without any redness, drainage, or swelling
- Continue home Metoprolol 25 BID. Uptitrate as tolerated once other GDMT is back on board- likely as OP.
Dilated cardiomyopathy (LVEF 50%)
- cMRI this admission with no infiltrative disease
- GDMT as tolerated:
-RASSi: Entresto resumed
-SGLT2 inhibitor: Jardiance 10 mg daily, auto substituted for Farxiga during hospitalization
-Aldosterone agonist: will add back spironolactone
-Beta eddie: Metoprolol succinate 25 BID resumed
-ICD placed this admission for OOH arrest
Hypoxic respiratory failure
-improved, pulmonary following
Abnormal troponin, acute nonischemic myocardial injury in the setting of defibrillation and CPR
- Peak troponin 1.170
- EKG appears nonischemic
- Cath 10/29/25: Right dominant circulation with no occlusive coronary artery disease.
- Severely elevated filling pressures (LVEDP = 25 mmHg at 127.9 kg) on a PEEP of 5 cmH2O - during RHC
PVCs, prior ablation in 2020, most recent burden 16% despite being on maximally tolerated beta-eddie
Subjective:
He is happy he got sleep last night. Breathing feels okay. Chest still hurts (musculoskeletal from CPR).
Telemetry: SR with PVC's. Yesterday had brief AIVR. Continue metoprolol.
Physical Exam
Vital Signs/Labs
Vital Signs
Temp Pulse Resp BP Pulse Ox
98.4 F 75 20 103/76 92
11/05/25 07:02 11/05/25 07:04 11/05/25 07:02 11/05/25 07:04 11/05/25 07:02
11/04/25 11/05/25 11/06/25
06:59 06:59 06:59
Actual Weight 277 lb 8.992 oz
11/05/25 03:22
11/05/25 03:22
PT 14.9 Sec (11.4-14.6) H 10/28/25 22:05
INR 1.15 10/28/25 22:05
APTT 27.4 Sec (23.4-35.0) 11/02/25 03:32
Magnesium 1.8 mg/dl (1.6-2.3) 11/04/25 10:32
Triglycerides Cancelled 11/02/25 16:32
LDL Cholesterol, Calc 55 mg/dl 10/29/25 04:07
VLDL Cholesterol, Calc 31 mg/dl (0-30) H 10/29/25 04:07
HDL Cholesterol 51 mg/dl 10/29/25 04:07
10/28/25
15:33
Tnd-Q-Asekrmgdbzm Pept 44.2
Physical Exam
Constitutional: No acute distress
EENT: Anicteric
Cardiovascular: Rhythm & rate is regular and Pedal edema is absent
Respiratory: Respiratory effort normal and Lungs clear to auscul.
Neuro/Psych: AO x 3
Other: Cardiac Device Site (left chest site well-healing without any redness, drainage, swelling)
Data Reviewed
-
Date of Service: November 05, 2025
EKG: Other (Tele SR with PVC's, brief AIVR yesterday)
Labs: Labs Reviewed by me
[2025-11-05] MEDS: ALDACTONE 12.5 MG PO (09:54)
[2025-11-05] MEDS: ELIQUIS 5 MG PO ×2 (09:56→20:22)
--- NOTE | 2025-11-05 09:59 | PTCARENOTE ---
Patient slept well this morning, assisted oob to the bathroom and having his breakfast in the chair. Family in early and sitting at the bedside. Resumed PO eliquis and aldactone. No complaints of left thigh burning, discomfort in chest area with
activity but ambulating well with rolling walker requiring assistance with sitting to standing and personal hygiene in the bathroom.
--- NOTE | 2025-11-05 10:29 | PN.CDI ---
CDI
- -
CDI:
Physician Documentation Request
Admit Date: 10/28/25 19:25
Dear Doctor Jovani,
Please review the following and provide your response in the progress notes.
Clinical Indicators:
Pt admitted after VF/VT cardiac arrest / Cardiogenic shock/Acute Hypoxic Respiratory Failure/HFrEF
Progress note 11/03 , ' 40 IV Lasix x1 as he is still requiring supplemental O2 with crackles on exam Resume Entresto and Spironolactone...'
Please provide a diagnosis for the us of IV Lasix :
Acute on Chronic HFrEF
Chronic HFrEF
Other ( please specify)
Use of terms such as suspected, likely, concern for, or probable (associated with a specific diagnosis that is being evaluated, monitored, or treated as if it exists) are acceptable and can be coded in the inpatient setting, when documented at the
time of discharge.
Thank you,
Gris Guardado RN
CDI Specialist
[facility]
Please use your independent medical judgment in providing your response.
[2025-11-05 12:30] LABS: Glucose - Point of Care 96 mg/dl (70-99)
--- NOTE | 2025-11-05 13:44 | W.PN.HOSP.TC ---
Today's Communication/Plan
-
Monitor vitals
See plan
Needs acute rehab placement, texted cyanide case hardener
Continue with metoprolol, Entresto, Aldactone, fark [employer]
On Eliquis
Discharge planning
Assessment / Plan
Assessment / Plan
General: Well Developed, Well Nourished and Comfortable; Negative Respiratory Distress or Appears in Distress
HEENT: Normocephalic and Atraumatic
Respiratory: Clear to Auscultation, on NC
Cardiac: Regular Rhythm and S1/S2
GI: Soft, Nontender, Nondistended and Normal Bowel Sounds
Musculoskeletal: No Clubbing and No Cyanosis
Neuro: Awake
Psych: Calm
Out of hospital VT/VFib arrest (I suspect that this occurred first and then he aspirated rather then the other way which was documented in the hnp)
Rosc achieved, Was intubated. Now extubated 10/30
Not a candidate for TTM as his mental status was intact moving his extremities fighting back
2d echo EF 50-55, rv dilated/reduced (cta no pa filling defect to suspect pe), pasp 41
[facility] no CAD
No evidence of additional VT/Fib to suspect need for IV amio per Cards
Cardiac MRI with LV systolic function decreased at 43%. Global hypokinesis without regional wall motion normality. No delayed hyperenhancement suggestive of infiltrative cardiomyopathy
S/p AICD for secondary prevention - 11/02
Metoprolol restarted
Also on farxiga
Cards ordered aldactone and entreso
Acute respiratory failure with hypoxia
CTA no pulm arterial filling defect to suspect PE
Extubated (10/30) to midflow
Wean as tolerated
IS and Acapella if able to follow
HFrEF, nyha class 3-4, in shock/NICM
on levophed, wean as tolerated
hold diuretics
resumed sglt2i per cards
hold arni/arb
Shock cardiogenic/septic
Appears resolved
Not on any pressors
Suspect bilateral pneumonia could be secondary to aspiration
Now on Augmentin, Last dose 11/03
Monitor
Chest x-ray with pneumonia
transaminitis
monitor for now, Improving
hold statin
if getting worse can check luqus/hep panel
likely related to shock though would have suspect higher
Pneumomediastinum vs ptx
ct minimal findings
xray not much change
paroxysmal afib
hold oral ac
Continue iv hep gtt
metabolic acidosis likely related to septic shock
Continue to monitor, Resolved
Improving
DVT prophylaxis
Eliquis
Full code
PT rec ARU
Physiatry consulted
Anticipated Discharge: Today
Subjective/Interval History
-
Date of Service: November 05, 2025
denies nausea
Objective Data
-
Labs:
Laboratory Results
11/05/25
03:22
WBC 9.4
Hgb 13.0
Hct 39.1
Plt Count 202
Sodium 136
Potassium 4.1
Chloride 104
Carbon Dioxide 26
BUN 24 H
Creatinine 1.1
Glucose 104 H
Calcium 9.2
Vital Signs:
Vital Signs
Temp Pulse Resp BP Pulse Ox
97.5 F 70 20 117/75 94
11/05/25 11:07 11/05/25 12:00 11/05/25 11:07 11/05/25 11:05 11/05/25 11:07
I&O
11/04/25 11/05/25 11/06/25
06:59 06:59 06:59
Intake Total 150 / 150 960 / 960 720 / 720
Output Total 2250 / 2250 1500 / 1500 400 / 400
Balance -2100 / -2100 -540 / -540 320 / 320
--- NOTE | 2025-11-05 15:15 | CM ---
spoke withpt in room, he tells me PT is recomm acute rehab, pt wouldlike to go to [facility]. [facility] called, referral faxed. awaiting PT/OT to see pt today will need insur auth in am. [facility] had beds but wont confirm avail until am.
[2025-11-05 16:48] LABS: Glucose - Point of Care 101 mg/dl (70-99)
[2025-11-05] MEDS: REMOVE LIDOCAINE PATCH 1 PATCH REMOVE (20:22)
[2025-11-05] MEDS: ROXICODONE 10 MG PO (21:01)
[2025-11-05 23:10] LABS: Glucose - Point of Care 112 mg/dl (70-99)
[2025-11-06] VITALS (7 sets, daily range): BP systolic 96–119; BP diastolic 61–91; PULSE 70; O2SAT 91; BMI 34.4
--- NOTE | 2025-11-06 00:21 | PTCARENOTE ---
Assumed care on pt at 1900, aaox3, able to make needs known. SR/Apaced on tele with occ pvc's. Denies c/o chest pain or SOB, c/o of soreness from chest area with activity, oxy prn given with + effect. BP stable. LCW incision CDI, steri strips in
place and intact. Ambulating with walker and assist x1 to bathroom, steady gait. Mucinex given for occ moist cough. POC ongoing, call light within reach.
[2025-11-06] MEDS: TYLENOL PO (00:42)
[2025-11-06] MEDS: TYLENOL 1000 MG PO ×3 (00:59→12:25)
[2025-11-06] MEDS: ROXICODONE 10 MG PO (04:34)
[2025-11-06 04:42] LABS: Hematocrit 38.0 % (39.0-52.0); Hemoglobin 12.7 g/dL (13.0-18.0); Mean Corp Hgb Conc. 33.4 g/dL (33.0-37.0); Mean Corpuscular Volume 86.4 fL (80.0-94.0); Platelet Count 207 10^3/uL (130-400); Red Cell Dist. Width 13.8 % (11.5-14.5)
[2025-11-06 05:07] LABS: Blood Urea Nitrogen 21 mg/dl (9-20); Calcium 8.8 mg/dl (8.4-10.2); Carbon Dioxide 25 mmol/L (22-30); Chloride 104 mmol/L (98-107); Estimated Creatinine Clearance 106 ml/min; Glucose 104 mg/dl (70-99); Potassium 4.0 mmol/L (3.5-5.1); Sodium 134 mmol/L (135-145); eGFR > 60.00
[2025-11-06 07:51] LABS: Glucose - Point of Care 112 mg/dl (70-99)
[2025-11-06] MEDS: MIRALAX 17 GRAMS TUBE (08:27)
[2025-11-06] MEDS: LIDOCAINE 4% PATCH 1 PATCH TOPICAL (08:27)
[2025-11-06] MEDS: ELIQUIS 5 MG PO (08:27)
[2025-11-06] MEDS: TOPROL XL 25 MG PO (08:27)
[2025-11-06] MEDS: FARXIGA 10 MG PO (08:27)
[2025-11-06] MEDS: ENTRESTO 24 MG/26 MG 1 TAB PO (08:27)
[2025-11-06] MEDS: ALDACTONE 12.5 MG PO (08:28)
[2025-11-06] MEDS: MUCINEX 600 MG PO (08:28)
--- NOTE | 2025-11-06 10:04 | PTCARENOTE ---
Patient received at change of shift resting in the bed. SR with Apacing on telemetry. SaO2 on RA 92%. The patient reports left thigh burning which is not new for him and pain when coughing. Left chest wall incision with steristrips intact, no edema,
radial pulse palpable. PT in to work with patient, ambulated in the hallway with a RW, standby assist. Plan of care discussed. Call keen within reach. Care ongoing.
--- NOTE | 2025-11-06 11:12 | W.PN.HOSP.TC ---
Today's Communication/Plan
-
monitor vitals
see plan
dc to [facility] today
time of discharge 37 minutes
Assessment / Plan
Assessment / Plan
General: Well Developed, Well Nourished and Comfortable; Negative Respiratory Distress or Appears in Distress
HEENT: Normocephalic and Atraumatic
Respiratory: Clear to Auscultation, on NC
Cardiac: Regular Rhythm and S1/S2
GI: Soft, Nontender, Nondistended and Normal Bowel Sounds
Musculoskeletal: No Clubbing and No Cyanosis
Neuro: Awake
Psych: Calm
Out of hospital VT/VFib arrest (I suspect that this occurred first and then he aspirated rather then the other way which was documented in the hnp)
Rosc achieved, Was intubated. Now extubated 10/30
Not a candidate for TTM as his mental status was intact moving his extremities fighting back
2d echo EF 50-55, rv dilated/reduced (cta no pa filling defect to suspect pe), pasp 41
[facility] no CAD
No evidence of additional VT/Fib to suspect need for IV amio per Cards
Cardiac MRI with LV systolic function decreased at 43%. Global hypokinesis without regional wall motion normality. No delayed hyperenhancement suggestive of infiltrative cardiomyopathy
S/p AICD for secondary prevention - 11/02
Metoprolol restarted
Also on farxiga
Cards ordered aldactone and entreso
Acute respiratory failure with hypoxia
CTA no pulm arterial filling defect to suspect PE
Extubated (10/30) to midflow
Wean as tolerated
IS and Acapella if able to follow
HFrEF, nyha class 3-4, in shock/NICM
on levophed, wean as tolerated
hold diuretics
resumed sglt2i per cards
hold arni/arb
Shock cardiogenic/septic
Appears resolved
Not on any pressors
Suspect bilateral pneumonia could be secondary to aspiration
Now on Augmentin, Last dose 11/03
Monitor
Chest x-ray with pneumonia
transaminitis
monitor for now, Improving
hold statin
if getting worse can check luqus/hep panel
likely related to shock though would have suspect higher
Pneumomediastinum vs ptx
ct minimal findings
xray not much change
paroxysmal afib
on eliquis
metabolic acidosis likely related to septic shock
Continue to monitor, Resolved
Improving
DVT prophylaxis
Eliquis
Full code
PT recommends acute rehab, discussed with clinical case manager. Plan for [facility]
Anticipated Discharge: Today
Subjective/Interval History
-
Date of Service: November 06, 2025
denies nausea
Objective Data
-
Labs:
Laboratory Results
11/06/25
04:22
WBC 9.0
Hgb 12.7 L
Hct 38.0 L
Plt Count 207
Sodium 134 L
Potassium 4.0
Chloride 104
Carbon Dioxide 25
BUN 21 H
Creatinine 0.9
Glucose 104 H
Calcium 8.8
Vital Signs:
Vital Signs
Temp Pulse Resp BP Pulse Ox
97.8 F 72 20 119/79 92
11/06/25 07:32 11/06/25 11:00 11/06/25 07:32 11/06/25 09:43 11/06/25 08:00
I&O
11/05/25 11/06/25 11/07/25
06:59 06:59 06:59
Intake Total 960 / 960 1200 / 1200
Output Total 1500 / 1500 1350 / 1350
Balance -540 / -540 -150 / -150
--- NOTE | 2025-11-06 11:15 | W.DCSUMMARY ---
Discharge Summary
Discharge Data
Date of Admission: 10/28/25
Date of Discharge: 11/06/25
-
Pending Results: No
Hospital Course
70-year-old male with history of laryngeal spasm, PVC, paroxysmal atrial fibrillation, gout, obstructive sleep apnea, acquired thrombophilia came to the hospital with ventricular tachycardia/ventricular fibrillation cardiac arrest. ROSC was
achieved and patient was intubated. Patient later got extubated on 10/30. Patient was seen by cardiology throughout hospitalization. Echocardiogram was done which showed EF of 50 to 55% with RV dilation. Patient did get left heart
catheterization which did not show any CAD. Patient cardiomyopathy appeared nonischemic. Cardiac MRI was also done which showed LV systolic function decreased to 43% with global hypokinesis without regional wall motion abnormality. Patient was
given ICD for secondary prevention. Patient was also started on metoprolol. On this hospitalization patient also appeared to be in shock and required pressors which was discontinued earlier in his hospitalization. He also suspected to had
bilateral pneumonia which was likely thought was secondary to aspiration and he completed antibiotics prior to discharge. Patient was evaluated by physical therapy who recommended acute rehab. Once his symptoms continue to improve, he was then
discharged to rehab with instructions to follow-up with all his physicians outpatient.
Discharge Plan
-
Patient Disposition: Acute Rehab Facility
Discharge Diagnosis/Procedures: Ventricular tachycardia/ventricular fibrillation arrest status post ICD implant (11/02)
Acute hypoxic respiratory failure
Nonischemic cardiomyopathy
CHF with reduced EF
Suspect aspiration pneumonia
Pneumomediastinum
Diet: Low Cholesterol
Activity: As tolerated
Driving Restrictions: As prior to admission
Bathing Restrictions: None
Stand Alone Forms: [facility] Inst - Implanted Device
Referrals:
[facility] [place] [Other]
[facility] [Provider Group] - 11/09/25 10:20 am
Referral Note: Post device incision check appointment
Zakia Alcala MD [Non-Admitting Privileges] - in three to four weeks
Akash Robledo MD [Family Provider, Family Practice] - in less than 1 week
Jacek Lofton MD [Active, Pulmonary Medicine] - in four to six weeks
Referral Note: May see [facility] - [facility]
Prescriptions:
New
docusate sodium 100 mg Capsule
100 mg PO BIDPRN PRN (Reason: constipation) Qty: 0 0RF
ipratropium-albuterol 0.5 mg-3 mg(2.5 mg base)/3 mL Solution For Nebulization
3 ml inhalation R Q4HPRN PRN (Reason: Wheezing/SOB/ Cough) Qty: 0 0RF
lidocaine 4 % Adhesive Patch,Medicated
1 patch topical DAILY Qty: 0 0RF
guaifenesin 600 mg Tablet Extended Release 12hr
600 mg PO Q12 Qty: 0 0RF
polyethylene glycol 3350 17 gram Powder In Packet
17 g feeding tube DAILY Qty: 0 0RF
sennosides [Margie-chapis] 8.6 mg Tablet
17.2 mg PO HSPRN PRN (Reason: constipation) Qty: 0 0RF
benzonatate 100 mg Capsule
100 mg PO TIDPRN PRN (Reason: cough) Qty: 0 0RF
oxycodone 5 mg Tablet
5 mg PO Q4HPRN PRN (Reason: MODERATE PAIN) Qty: 0 0RF
oxycodone 10 mg Tablet
10 mg PO Q4HPRN PRN (Reason: SEVERE PAIN) Qty: 0 0RF
acetaminophen [Tylenol Extra Strength] 500 mg Tablet
1,000 mg PO Q6H Qty: 0 0RF
metoprolol succinate 25 mg Tablet Extended Release 24 Hr
25 mg PO BID Qty: 0 0RF
Continued
loratadine 10 MG tablet
10 mg PO DAILY
spironolactone 12.5 MG tablet
12.5 mg PO DAILY
fluticasone propionate 50 mcg/actuation spray,suspension
2 spray INTRANASAL DAILY
rosuvastatin 5 mg tablet
5 mg PO DAILY
Eliquis 5 mg tablet
5 mg PO BID
Jardiance 10 mg tablet
10 mg PO DAILY
sacubitril-valsartan [Entresto] 24-26 mg tablet
1 tab PO BID
Discontinued
ibuprofen 200 MG tablet
200 mg PO PRN PRN (Reason: discomfort)
metoprolol succinate 25 mg tablet extended release 24 hr
25 mg PO BID
Discharge Orders:
Discharge Patient (As Directed); Ordered 11/06/25
Ordered By: Eddie Wheeler
Care Plan Goals
Care Plan Goals:
Problem: Readiness for enhanced knowledge related to diagnosis and treatment plan
Goal: Understand your diagnosis and treatment plan needs, including medications if applicable.
Instructions: Know your diagnosis, underlying causes and treatment plan options, including medications if applicable. Consult with your health care team to learn about your diagnosis and treatment plan, including medications if applicable.
Discharge Date and Time
Discharge Date/Time: 11/06/25 14:53
Print Language: INDONESIAN
[2025-11-06 12:30] LABS: Glucose - Point of Care 84 mg/dl (70-99)
--- NOTE | 2025-11-06 14:43 | PTCARENOTE ---
Patient discharged to [facility]. PIV INT and telemetry pack removed. Called report to [facility] trade recruiter. Patient transported by staff via wheelchair with all belongings, own CPAP machine, discharge paperwork, and education packets.
== END 2025-11-06 14:53 | DRG 275 ==
LOC: IVU 19:25
PROVIDERS: Hospitalist; Internal Medicine; Internal Medicine Cardiovascular Disease; Nurse Practitioner; Nurse Practitioner Family; Nurse Practitioner Primary Care; Student in an Organized Health Care Education/Training Program; ADMITTING PHYSICIAN Internal Medicine; ATTENDING PHYSICIAN Internal Medicine; EMERGENCY PHYSICIAN Student in an Organized Health Care Education/Training Program; FAMILY PHYSICIAN Family Medicine; OTHER PHYSICIAN Internal Medicine Critical Care Medicine; OTHER PHYSICIAN Student in an Organized Health Care Education/Training Program
PROC: 03HY32Z Insertion of Monitoring Device into Upper Artery, Percutaneous Approach (ICD-10-PCS; 2025-10-28)
PROC: 5A1945Z Respiratory Ventilation, 24-96 Consecutive Hours (ICD-10-PCS; 2025-10-28)
PROC: 4A023N7 Measurement of Cardiac Sampling and Pressure, Left Heart, Percutaneous Approach (ICD-10-PCS; 2025-10-29)
PROC: B2111ZZ Fluoroscopy of Multiple Coronary Arteries using Low Osmolar Contrast (ICD-10-PCS; 2025-10-29)
PROC: 5A09357 Assistance with Respiratory Ventilation, Less than 24 Consecutive Hours, Continuous Positive Airway Pressure (ICD-10-PCS; 2025-10-30)
PROC: 0JH608Z Insertion of Defibrillator Generator into Chest Subcutaneous Tissue and Fascia, Open Approach (ICD-10-PCS; 2025-11-02)
PROC: 02H63KZ Insertion of Defibrillator Lead into Right Atrium, Percutaneous Approach (ICD-10-PCS; 2025-11-02)
PROC: 02HK3KZ Insertion of Defibrillator Lead into Right Ventricle, Percutaneous Approach (ICD-10-PCS; 2025-11-02)
DX: I49.01 Ventricular fibrillation (principal); A41.9 Sepsis, unspecified organism; I50.23 Acute on chronic systolic (congestive) heart failure; J69.0 Pneumonitis due to inhalation of food and vomit; J96.01 Acute respiratory failure with hypoxia; R57.0 Cardiogenic shock; R65.21 Severe sepsis with septic shock; D68.59 Other primary thrombophilia; I5A Non-ischemic myocardial injury (non-traumatic); N17.9 Acute kidney failure, unspecified; E87.20 Acidosis, unspecified; I46.2 Cardiac arrest due to underlying cardiac condition; I47.20 Ventricular tachycardia, unspecified; R74.01 Elevation of levels of liver transaminase levels; J38.5 Laryngeal spasm; I48.0 Paroxysmal atrial fibrillation; M10.9 Gout, unspecified; G47.33 Obstructive sleep apnea (adult) (pediatric); I42.8 Other cardiomyopathies; N40.0 Benign prostatic hyperplasia without lower urinary tract symptoms; I49.3 Ventricular premature depolarization; E78.00 Pure hypercholesterolemia, unspecified; I42.0 Dilated cardiomyopathy; J98.2 Interstitial emphysema; E66.9 Obesity, unspecified; Z68.35 Body mass index [BMI] 35.0-35.9, adult; Z11.52 Encounter for screening for COVID-19
CPT/HCPCS: 33249; 70450; 71045; 71275; 74174; 75561; 80048; 80053; 80061; 82248; 82330; 82805; 82962; 83036; 83605; 83735; 83880; 84100; 84132; 84302; 84478; 84484; 85025; 85027; 85610; 85730; 87040; 87070; 87071; 87077; 87186; 87205; 87449; 87502; 87641; 87811; 87899; 93005; 93306; 93308; 93321; 93325; 93458; 93971; 94002; 94003; 94640; 94660; 96365; 96375; 97110; 97116; 97163; 97167; 97530; 97535; 99291; A9585; C1721; C1760; C1769; C1777; C1894; C1898; Q9950; Q9967